=== PATIENT | female | born 1955 | race Caucasian/White ===

== ENCOUNTER 2018-10-07 18:46 | Observation (INO) | payer OTHER ==
[2018-10-07 21:57] LABS: Absolute Lymphocytes (CBC) 1.6 K/uL (0.7-4.9); Absolute Monocytes 1.2 K/uL (0.1-1.3); Absolute Neutrophil 13.4 K/uL (1.8-8.0); Basophils % 0.3 % (0-1.3); Eosinophils % 0.1 % (0-4.4); Hematocrit 41.7 % (36.0-45.0); Lymphocytes % 9.6 % (15.3-44.8); MPV 9.8 fL (7.6-11.3); Monocytes % 7.3 % (3.3-12.3); RBC Red Blood Cell Count 4.42 M/uL (3.86-4.86)
[2018-10-07 22:03] LABS: Potassium 3.8 mmol/L (3.5-5.1)
[2018-10-07] MEDS ORDERED: NA CHLORIDE 0.9% 1,000 ML ONE (22:06)
[2018-10-07 23:05] LABS: Blood Morphology Comment NOT SEEN (NOT SEEN); Platelet Estimate ADEQ; Urine White Blood Cell Casts OK
--- NOTE | 2018-10-07 23:28 | EDPHYS ---
Physician Documentation [facility] Name: Emily Shaw Age: 63 yrs Sex: Female : 1955 Arrival Date: 10/07/2018 Time: 18:47 Bed 20 Private MD: ED Physician Raimundo Herrera HPI: 10/07 21:42 This 63 yrs old Female presents to ER via Wheelchair with complaints of rn Headache, sore throat, sinus pain, neck swelling. 21:42 The patient complains of pain to the forehead. The patient describes the headache as rn aching. 21:42 Onset: The symptoms/episode began/occurred 4 day(s) ago. Associated signs and symptoms: rn Pertinent positives: fever, sinus congestion, weakness, Pertinent negatives: altered mental status, neck stiffness, rash, vision loss. Severity of symptoms: At its worst the pain was moderate, in the emergency department the pain is unchanged. The patient has not experienced similar symptoms in the past. Reports fever, chills, sore throat, sinus issues for 4 days, now left neck is swelling, reports pain with swallowing, no trauma, feels like throat is swelling. + fatigue and malaise.. Historical: - Allergies: 19:48 Atropine; jd3 19:48 Benadryl; jd3 19:48 Scopolamine HBr; jd3 19:48 steroids; jd3 19:48 Sulfa (Sulfonamide Antibiotics); jd3 19:48 Ibuprofen; jd3 - Home Meds: 21:51 aspirin 81 mg Oral TbEC 1 tab once daily [Active]; atorvastatin 20 mg Oral tab 1 tab tl2 once daily [Active]; CoQ-10 Oral [Active]; - PMHx: 19:48 CVA; Hyperlipidemia; High Cholesterol; dry eyes; jd3 - PSHx: 19:48 Sinus sx; Cyst removed from coccyx; Tonsillectomy; Tubal ligation; jd3 - Immunization history:: Adult Immunizations unknown. - Social history:: Smoking status: Patient/guardian denies using tobacco, the patient reports quitting approximately 5 years ago. - Ebola Screening: : Patient negative for fever greater than or equal to 101.5 degrees Fahrenheit, and additional compatible Ebola Virus Disease symptoms. ROS: 21:43 Constitutional: + fever Eyes: Negative for injury, pain, redness, and discharge, ENT: + rn sinus congestion and pain Neck: + left neck pain Cardiovascular: Negative for chest pain, palpitations, and edema, Respiratory: Negative for cough, wheezing, and pleuritic chest pain, Abdomen/GI: Negative for abdominal pain, nausea, vomiting, diarrhea, and constipation, MS/Extremity: Negative for injury and deformity, Skin: Negative for injury, rash, and discoloration, Neuro: + headache and generalized weakness Exam: 21:43 Constitutional: This is a well developed, well nourished patient who is awake, alert, rn and in no acute distress. Head/Face: Normocephalic, atraumatic. Eyes: Pupils equal round and reactive to light, extra-ocular motions intact. Lids and lashes normal. Conjunctiva and sclera are non-icteric and not injected. Cornea within normal limits. Periorbital areas with no swelling, redness, or edema. ENT: + mild pharyngeal erythema, no stridor, no oral lesions Neck: + left neck swelling and tenderness along SCM with tender cervical LAD Skin: Warm, dry, no cellulitis MS/ Extremity: Pulses equal, no cyanosis. Neurovascular intact. Full, normal range of motion. Equal circumference. Neuro: Awake and alert, GCS 15, oriented to person, place, time, and situation. Cranial nerves II-XII grossly intact. Motor strength 5/5 in all extremities. Sensory grossly intact. Cerebellar exam normal. Vital Signs: 19:48 BP 108 / 58; Pulse 76; Resp 19 S; Temp 99.8(O); Pulse Ox 98% on R/A; Weight 95.25 kg jd3 (R); Height 5 ft. 2 in. (157.48 cm) (R); Pain 10/10; 21:08 BP 131 / 64; Pulse 84; Resp 17; Temp 99.5(O); Pulse Ox 95% on R/A; mt 22:15 BP 131 / 45; Pulse 66; Resp 18; Pulse Ox 98% on R/A; tl2 10/08 00:27 BP 123 / 58; Pulse 67; Resp 18; Pulse Ox 95% on R/A; tl2 02:19 BP 124 / 55; Pulse 67; Resp 18; Pulse Ox 98% on R/A; tl2 10/07 19:48 Body Mass Index 38.41 (95.25 kg, 157.48 cm) jd3 [place] Coma Score: 10/07 23:25 Eye Response: spontaneous(4). Verbal Response: oriented(5). Motor Response: obeys rn commands(6). Total: 15. MDM: 21:16 Patient medically screened. rn 23:25 Differential diagnosis: neoplasm, sinus headache, deep space neck infection, rn lymphadenitis. Data reviewed: vital signs, nurses notes, lab test result(s), radiologic studies, CT scan, and as a result, I will admit patient. Counseling: I had a detailed discussion with the patient and/or guardian regarding: the historical points, exam findings, and any diagnostic results supporting the discharge/admit diagnosis, lab results, radiology results, the need for further work-up and treatment in the hospital. Admission orders: after a detailed discussion of the patient's condition and case, the admit orders are written by me. ED course: Pt with asymmetric swelling of glottis region with lymphadenopathy, will admit with IV abx and ENT consult. . 10/07 21:31 Order name: CBC with Diff; Complete Time: 23:08 rn 10/07 21:31 Order name: Basic Metabolic Panel; Complete Time: 22:49 rn 10/07 21:31 Order name: Flu; Complete Time: 22:49 rn 10/07 21:31 Order name: Strep; Complete Time: 22:49 rn 10/07 21:43 Order name: [place] Screen Profile; Complete Time: 22:49 rn 10/07 22:00 Order name: CBC Smear Scan; Complete Time: 23:08 EDMS 10/07 21:31 Order name: CT Head Brain wo Cont rn 10/07 21:31 Order name: CT Soft Tissue Neck W/contr rn 10/07 21:31 Order name: IV Start; Complete Time: 21:49 rn 10/07 22:19 Order name: Throat Culture EDMS Administered Medications: 22:00 Drug: NS 0.9% 1000 ml Route: IV; Rate: 1000 ml; Site: left antecubital; tl2 23:30 Follow up: IV Status: Completed infusion; IV Intake: 1000ml tl2 23:51 Drug: Zosyn 3.375 grams Route: IVPB; Infused Over: 60 mins; Site: left antecubital; tl2 10/08 01:00 Follow up: IV Status: Completed infusion; IV Intake: 100ml tl2 Disposition: 10/07/18 23:27 Hospitalization ordered by Vince Alvarez for Inpatient Admission. Preliminary diagnosis are Acute lymphadenitis of face, head and neck, Odynophagia. - Bed requested for Telemetry/MedSurg (Inpatient). - Status is Inpatient Admission. tl2 - Condition is Stable. - Problem is new. - Symptoms have improved. UTI on Admission? No Signatures: Dispatcher [employer] EDMS Raimundo Herrera MD MD rn Garcia, Cindy, RN RN Rosario Ramey RN RN tl2 Tobi Salas RN RN jd3 Corrections: (The following items were deleted from the chart) 01:33 10/07 23:27 Hospitalization Ordered by Vince Alvarez MD for Inpatient Admission. cg Preliminary diagnosis is Acute lymphadenitis of face, head and neck; Odynophagia. Bed requested for Telemetry/MedSurg (Inpatient). Status is Inpatient Admission. Condition is Stable. Problem is new. Symptoms have improved. UTI on Admission? No. rn 10/08 02:25 01:33 10/07/2018 23:27 Hospitalization Ordered by Vince Alvarez MD for Inpatient tl2 Admission. Preliminary diagnosis is Acute lymphadenitis of face, head and neck; Odynophagia. Bed requested for Telemetry/MedSurg (Inpatient). Status is Inpatient Admission. Condition is Stable. Problem is new. Symptoms have improved. UTI on Admission? No. cg
--- NOTE | 2018-10-07 23:28 | ER ---
Nurse's Notes [facility] Name: Emily Shaw Age: 63 yrs Sex: Female : 1955 Arrival Date: 10/07/2018 Time: 18:47 Bed 20 Private MD: Diagnosis: Acute lymphadenitis of face, head and neck;Odynophagia Presentation: 10/07 19:44 Presenting complaint: Patient states: "I have a headache and it hurts to swallow. this jd3 has been going on since Thursday. I have been nauseous and this pain is getting to be unbelievable. and my throat pain is causing me to having shortness of breath.". Transition of care: patient was not received from another setting of care. Onset of symptoms was October 02, 2018. Risk Assessment: Do you want to hurt yourself or someone else? Patient reports no desire to harm self or others. Initial Sepsis Screen: Does the patient meet any 2 criteria? No. Patient's initial sepsis screen is negative. Does the patient have a suspected source of infection? No. Patient's initial sepsis screen is negative. Care prior to arrival: None. 19:44 Method Of Arrival: Wheelchair jd3 19:44 Acuity: REN 3 jd3 Triage Assessment: 21:53 Headache History: Denies prior headaches. tl2 Historical: - Allergies: 19:48 Atropine; jd3 19:48 Benadryl; jd3 19:48 Scopolamine HBr; jd3 19:48 steroids; jd3 19:48 Sulfa (Sulfonamide Antibiotics); jd3 19:48 Ibuprofen; jd3 - Home Meds: 21:51 aspirin 81 mg Oral TbEC 1 tab once daily [Active]; atorvastatin 20 mg Oral tab 1 tab tl2 once daily [Active]; CoQ-10 Oral [Active]; - PMHx: 19:48 CVA; Hyperlipidemia; High Cholesterol; dry eyes; jd3 - PSHx: 19:48 Sinus sx; Cyst removed from coccyx; Tonsillectomy; Tubal ligation; jd3 - Immunization history:: Adult Immunizations unknown. - Social history:: Smoking status: Patient/guardian denies using tobacco, the patient reports quitting approximately 5 years ago. - Ebola Screening: : Patient negative for fever greater than or equal to 101.5 degrees Fahrenheit, and additional compatible Ebola Virus Disease symptoms. Screenin:50 Abuse screen: Denies threats or abuse. Nutritional screening: No deficits noted. tl2 Tuberculosis screening: No symptoms or risk factors identified. Fall Risk None identified. Assessment: 21:35 General: Appears in no apparent distress. uncomfortable, Behavior is calm, cooperative, tl2 appropriate for age, drowsy. Pain: Complains of pain in forehead. Neuro: Level of Consciousness is awake, alert, obeys commands, Oriented to person, place, time, situation. Cardiovascular: Denies chest pain, Patient's skin is warm and dry. Respiratory: Airway is patent Respiratory effort is even, unlabored, Respiratory pattern is regular, symmetrical, Parent/caregiver reports the patient having cough that is. GI: Reports intolerance of fluids, intolerance of food, nausea. : No signs and/or symptoms were reported regarding the genitourinary system. EENT: Throat is reddened. Derm: Skin is pink, warm \\T\\ dry. 22:16 Reassessment: pt out to CT. tl2 23:30 Reassessment: Patient appears in no apparent distress at this time. Patient and/or tl2 family updated on plan of care and expected duration. Pain level reassessed. Patient is alert, oriented x 3, equal unlabored respirations, skin warm/dry/pink. 10/08 00:26 Reassessment: Patient appears in no apparent distress at this time. pt appears to be tl2 sleeping, RR even and unlabored. 02:19 Reassessment: Patient appears in no apparent distress at this time. Patient and/or tl2 family updated on plan of care and expected duration. Pain level reassessed. Patient is alert, oriented x 3, equal unlabored respirations, skin warm/dry/pink. pt stable and ready for transport to floor. Vital Signs: 10/07 19:48 BP 108 / 58; Pulse 76; Resp 19 S; Temp 99.8(O); Pulse Ox 98% on R/A; Weight 95.25 kg jd3 (R); Height 5 ft. 2 in. (157.48 cm) (R); Pain 10/10; 21:08 BP 131 / 64; Pulse 84; Resp 17; Temp 99.5(O); Pulse Ox 95% on R/A; mt 22:15 BP 131 / 45; Pulse 66; Resp 18; Pulse Ox 98% on R/A; tl2 10/08 00:27 BP 123 / 58; Pulse 67; Resp 18; Pulse Ox 95% on R/A; tl2 02:19 BP 124 / 55; Pulse 67; Resp 18; Pulse Ox 98% on R/A; tl2 10/07 19:48 Body Mass Index 38.41 (95.25 kg, 157.48 cm) jd3 [place] Coma Score: 10/07 23:25 Eye Response: spontaneous(4). Verbal Response: oriented(5). Motor Response: obeys rn commands(6). Total: 15. ED Course: 18:47 Patient arrived in ED. rg4 19:46 Triage completed. jd3 19:49 Arm band placed on Patient notified of wait time. jd3 21:08 Rosario Ramey, SYED is Primary Nurse. tl2 21:16 Raimnudo Herrera MD is Attending Physician. rn 21:45 Inserted saline lock: 22 gauge in left antecubital area, using aseptic technique. Blood tl2 collected. 21:50 Radiology exam delayed due to lab results not completed at this time. (BUN/Creatinine). vm2 21:50 Patient has correct armband on for positive identification. Placed in gown. Bed in low tl2 position. Call light in reach. Side rails up X 1. Adult w/ patient. 21:50 [place] Screen Profile Sent. tl2 21:50 Strep Sent. tl2 21:50 Flu Sent. tl2 21:50 Basic Metabolic Panel Sent. tl2 21:50 CBC with Diff Sent. tl2 22:[address] nj 22:36 CT Head Brain wo Cont In Process Unspecified. EDMS 22:37 CT Soft Tissue Neck W/contr In Process Unspecified. EDMS 23:26 Vince Alvarez MD is Hospitalizing Provider. rn 10/08 02:19 No provider procedures requiring assistance completed. Patient admitted, IV remains in tl2 place. Administered Medications: 10/07 22:00 Drug: NS 0.9% 1000 ml Route: IV; Rate: 1000 ml; Site: left antecubital; tl2 23:30 Follow up: IV Status: Completed infusion; IV Intake: 1000ml tl2 23:51 Drug: Zosyn 3.375 grams Route: IVPB; Infused Over: 60 mins; Site: left antecubital; tl2 10/08 01:00 Follow up: IV Status: Completed infusion; IV Intake: 100ml tl2 Intake: 10/07 23:30 IV: 1000ml; Total: 1000ml. tl2 10/08 01:00 IV: 100ml; Total: 1100ml. tl2 Outcome: 10/07 23:27 Decision to Hospitalize by Provider. syed 10/08 02:19 Admitted to Med/surg accompanied by tech, family with patient, via wheelchair, room tl2 223, with chart, Report called to SYED Rodriguez Condition: stable Discharge instructions given to patient, family, Instructed on the need for admit. 02:25 Patient left the ED. tl2 Signatures: Dispatcher [employer] EDMS Raimundo Herrera MD MD rn Knox, Taylor, RN RN tl2 Simone, Arleen 4 Lars, Katharine Marroquin 2 Kimber Villafana mt, Jonathon, RN RN jd3 Corrections: (The following items were deleted from the chart) 10/07 19:50 19:44 Presenting complaint: Patient states: "I have a headache and it hurts to swallow. jd3 this has been going on since Thursday. I have been nauseous and this pain is getting to be unbelievable." jd3
[2018-10-07] MEDS ORDERED: PIPER/TAZO/NS 3.375gm 3.375 GM/100 ML BAG ONE (23:52)
[2018-10-08] MEDS ORDERED: CEFTRIAXONE/SWI 1gm 1 GM/10 ML SYR ONE (00:53)
[2018-10-08] MEDS ORDERED: ACETAMINOPHEN 500 MG TAB PO PRN (03:04)
[2018-10-08] MEDS: NA CHLORIDE 0.9% 1,000 ML IV SCH ×2 (04:36→11:07)
--- NOTE | 2018-10-08 06:04 | P.HP ---
Certification for Inpatient Patient admitted to: Observation With expected LOS: <2 Midnights Practitioner: I am a practitioner with admitting privileges, knowledge of patient current condition, hospital course, and medical plan of care. Services: Services provided to patient in accordance with Admission requirements found in Title 42 Section 412.3 of the Code of Federal Regulations Patient History Date of Service: 10/08/18 Reason for admission: odynophagia, fever History of Present Illness: Ms Shaw is a 63 years old woman with history of dyslipidemia, CVA, who started about 4 days ago with sore throat and neck pain to swallowing. She has had subjective fever, with mild SOB, cough, nausea but no vomiting. She denied chest pain. At arrival, her temp was 99.8 F, lab work shows leukocytosis 16.2K, CT scan of soft tissue neck, remarkable for abnormal appearance of the [place] , concerning for infection vs malignancy. CT head shows moderate paranasal sinusitis. Influenza screening is negative. Allergies atropine Allergy (Verified 10/08/18 02:29) Unknown diphenhydramine HCl [From Benadryl] Allergy (Verified 10/08/18 02:29) UNK Penicillins Allergy (Verified 10/08/18 02:29) UNK ibuprofen Adverse Reaction (Verified 10/08/18 02:30) Nausea/Vomiting Scopolamine HBr Allergy (Uncoded 07/24/17 14:03) Unknown Sulfa (Sulfonamide Antib Allergy (Uncoded 07/24/17 14:03) Unknown - Past Medical/Surgical History Has patient received pneumonia vaccine in the past: Yes Diabetic: No -: sinus surg -: tubal ligation -: tonsillectomy - Family History Father -: Heart disease - Social History Smoking Status: Former smoker CD- Drugs: No Caffeine use: Yes Place of Residence: Home Review of Systems 10-point ROS is otherwise unremarkable Physical Examination - Vital Signs Temperature: 99.5 F Blood Pressure: 124/55 Pulse: 67 Respirations: 18 - Physical Exam General: Alert, In no apparent distress HEENT: Atraumatic, PERRLA, Mucous membr. moist/pink, EOMI, Sclerae nonicteric Neck: Supple, 2+ carotid pulse no bruit, No LAD, Without JVD or thyroid abnormality Respiratory: Clear to auscultation bilaterally, Normal air movement Cardiovascular: Regular rate/rhythm, Normal S1 S2 Gastrointestinal: Normal bowel sounds, No tenderness Musculoskeletal: No tenderness Integumentary: No rashes Neurological: Normal gait, Normal speech, Normal strength at 5/5 x4 extr, Normal tone, Normal affect Lymphatics: No axilla or inguinal lymphadenopathy - Studies Laboratory Data (last 24 hrs) 10/07/18 21:40: Sodium 137, Potassium 3.8, BUN 14, Creatinine 1.08, Glucose 132 H 10/07/18 21:40: WBC 16.2 H, Hgb 13.8, Hct 41.7, Plt Count 205 Microbiology Data (last 24 hrs): 10/07/18 21:40 Nasopharnyx Influenza Type A Antigen Screen - Final 10/07/18 21:40 Nasopharnyx Influenza Type B Antigen Screen - Final 10/07/18 21:40 Throat Group A Streptococcus Rapid Screen - Final Assessment and Plan - Problems (Diagnosis) (1) Odynophagia Current Visit: Yes Status: Acute (2) Sinusitis Current Visit: Yes Status: Acute Qualifiers: Sinusitis location: sphenoidal Chronicity: acute Recurrence: not specified as recurrent Qualified Code(s): J01.30 - Acute sphenoidal sinusitis , unspecified - Plan The patient will be admitted under observation, start empiric antibiotics, will consult Dr Hernandez, for evaluation and recommendations. - Advance Directives Does patient have a Living Will: No Does patient have a Durable POA for Healthcare: No - Code Status/Comfort Care Code Status Assessed: Yes Code Status: Full Code
[2018-10-08] MEDS ORDERED: ONDANSETRON 4 MG/2 ML VIAL IV ONE (06:17)
[2018-10-08 06:34] LABS: Absolute Lymphocytes (CBC) 1.4 K/uL (0.7-4.9); Absolute Monocytes 1.1 K/uL (0.1-1.3); Absolute Neutrophil 10.2 K/uL (1.8-8.0); Basophils % 0.3 % (0-1.3); Eosinophils % 0.2 % (0-4.4); Hematocrit 37.5 % (36.0-45.0); Lymphocytes % 10.9 % (15.3-44.8); MPV 9.7 fL (7.6-11.3); Monocytes % 8.5 % (3.3-12.3); RBC Red Blood Cell Count 4.05 M/uL (3.86-4.86)
[2018-10-08 06:52] LABS: Potassium 3.8 mmol/L (3.5-5.1)
[2018-10-08] MEDS: ACETAMINOPHEN 500 MG TAB PO PRN ×2 (07:28→15:29)
[2018-10-08] MEDS ORDERED: AZITHROMYCIN IV 500 MG in NA CHLORIDE 0.9% 250 ML IVPB SCH (09:00)
[2018-10-08] MEDS ORDERED: CEFTRIAXONE 1 GM/NS 50 ML 1 GM/50 ML BAG IV SCH (09:00)
[2018-10-08] MEDS ORDERED: CEFTRIAXONE/SWI 1gm 1 GM/10 ML SYR IV SCH (09:00)
[2018-10-08] MEDS ORDERED: PSEUDOEPHEDRINE 30 MG TAB PO PRN (10:37)
--- NOTE | 2018-10-08 11:27 | RAD REPORT ---
EXAM DESCRIPTION: CT - Soft Tissue Neck W/Contr - 10/07/2018 10:57 pm CLINICAL HISTORY: The patient is 63 years old and is Female; left neck pain/swelling TECHNIQUE: Axial computed tomography images of the neck with intravenous contrast. Sagittal and co froilan reformatted images were created and reviewed. This CT exam was performed using one or more of the following dose reduction techniques: automated exposure control, adjustment of the mA and/or k V according to patient size, and/or use of iterative reconstruction technique. COMPARISON: CT head without contrast of the same day. FINDINGS: BRAIN: Visualized intracranial compartment demonstrate no gross abnormality. OROPHARYNX: Unremarkable. No significant tonsillar enlargement. No peritonsillar abscess. HYPOPHARYNX: See below. LARYNX: Asymmetric effacement of the left vallecula with thickening of the left epiglottis and radha epiglottic fold. There is fullness of the left piriform sinus. TRACHEA: Unremarkable. RETROPHARYNGEAL SPACE: Unremarkable. SUBMANDIBULAR/PAROTID GLANDS: Unremarkable. Glands are normal in size. THYROID: Visualized thyroid is unremarkable. BONES/JOINTS: Multilevel degenerative changes, worse at C5-6. No acute fracture. SOFT TISSUES: Unremarkable. VASCULATURE: No acute findings. LYMPH NODES: Multilevel left cervical lymphadenopathy. Largest level 2A lymph node measures 1.5 cm . Largest level 2B lymph node measures 1.2 cm. Multiple mildly enlarged left level three and four lym ph nodes. No pathologically enlarged right cervical lymph nodes. SINUSES: Nodular mucosal thickening in the maxillary sinus with chronic osteitis extending to the ethmoid. LUNG APICES: Apical centrilobular emphysematous changes. IMPRESSION: 1. Asymmetric effacement of the left vallecula with thickening of the left epiglottis/ aryepiglottic fold and fullness of the piriform sinus. Finding could represent neoplastic or infectio us mucosal lesion. Direct visualization is recommended. 2. Multistation left cervical lymphadenopathy as detailed above. 3. Apical chronic lung changes. 4. Chronic appearing paranasal sinus disease. 5. Moderate C6-7 degenerative changes. Electronically signed by: Negro Capellan DO 10/07/2018 10:51 PM CDT Due to temporary technical issues with the PACS/Fluency reporting system, reports are being signed by the in house radiologist as a courtesy to ensure prompt reporting. The interpreting radiologist is f ully responsible for the content of the report.
--- NOTE | 2018-10-08 11:28 | RAD REPORT ---
EXAM DESCRIPTION: CT - Head Brain Wo Cont - 10/07/2018 10:55 pm CLINICAL HISTORY: 63 years Female, HEADACHE TECHNIQUE: 5 mm axial images were obtained along with 3 mm reformatted coronal and sagittal images. This exam was performed according to our departmental dose-optimization program, which includes autom ated exposure control, adjustment of the mA and/or kV according to patient size and/or use of iterati ve reconstruction technique. COMPARISON: None. FINDINGS: No acute abnormal extracerebral fluid collections are demonstrated. The cortical sulci, ventricles, and cisterns are within normal limits. There are no areas of altered attenuation identified to suggest acute hemorrhage, infarction, or mass lesion. The visualized portions of the paranasal sinuses and mastoid air cells are moderately severe mucosal thickening in the right frontal, bilateral ethmoid, and maxillary sinuses. IMPRESSION: 1. No acute intracranial abnormalities. 2. Moderately severe paranasal sinusitis. Electronically signed by: Erwin Braxton MD 10/07/2018 10:44 PM CDT Due to temporary technical issues with the PACS/Fluency reporting system, reports are being signed by the in house radiologist as a courtesy to ensure prompt reporting. The interpreting radiologist is f ully responsible for the content of the report.
--- NOTE | 2018-10-08 17:53 | P.CNS ---
Date of Consult: 10/08/18 CC: neck swelling HPI: 63 yo with known hx CRS and FESS at [facility] in 2015; presents with about 1 week sore throat and L neck pain and swelling. Treated with outpatient Amoxil from [facility] starting Thursday but having very severe BOTELLO and came to ER on evening. Tried saline irrigations without improvement. Possible discussion about fungal issues in the sinuses. No photo/phono phobia. No prior neuro evaluation. PH/PS Hx: cholesterol, CVA (15 years ago), CRS/FESS as above ROS: reviewed from ER, no changes FHx: noncontributory SH: Hx tobacco, quit on and off several times, last tobacco about 5-6 years ago. NAD. Alert, no stridor. Normal voice. Generally appears comfortable. PERRL, EOM. Nares patent - no discolored discharge. Pinna unremarkable, no otoscope is available at this time. Lips normal. Tongue dry but without ulceration/ lesions. FOM flat, non tender. Tonsils absent and well healed. Posterior OP wall pink/dry but not greatly irritated. L neck with tender palpable nodes deep to SCM - difficult to appreciate size clinically - about 2-3 cm area of swelling. R neck non-tender and no palpable LAD. CT head and neck with contrast shows B ethmoid, max opacifcation and surgical changes. Frontal not well visualized on CT neck. Sphenoid not signficantly involved. No abscess. L LAD 12-15mm without abscess. No clear dental cause. Radiologist noted asymmetry of vallecula and recommended direct visualization. Mildly elevated WBC on admission, improving. Assessment/Plan: Cervical Lymphadenitis - In this very acute setting, with recent onset and degree of pain/tenderness, malignancy is low likelihood. Reactive LAD will typically resolve in 4-6 weeks and clinical reassessment with/without imaging pending clinical status. Abnormal radiographic exam - plan for outpatient flexible laryngoscopy in ENT clinic in 4-6 weeks for direct visualization of BOT/vallecula Chronic maxillary and ethmoid sinusitis - no obvious pus is present for culture at this time. Recommend empiric antibiotics with typically options of Augmentin or Levaquin, alternatives include doxycycline or Bactrim. Recommend 21-28 days of treatment with post-treatment CT sinus with 1 mm axial slices and coronal/ sagital reconstructions. Will review findings and discuss treatment options based on post-treatment findings including endoscopic exam. Alternatively, patient can [facility] if she desires. Severe BOTELLO - based on history and CT findings it is unclear if her BOTELLO is sinogenic or may have other contributing causes such as migraine. She may benefit from neurologist evaluation, sigifredo if her post-treatment CT next month is much improved.
[2018-10-08] MEDS ORDERED: ATORVASTATIN 40 MG TAB PO SCH (21:00)
[2018-10-08] MEDS ORDERED: ERYTHROMYCIN 1 APPL/1 GM TUBE OP SCH (21:00)
--- NOTE | 2018-10-09 01:53 | DS ---
Date of Discharge: 10/08/2018 Installation And Service Technician: Dr. Hernandez, ENT. Procedures: None. Discharge Diagnoses: 1.Acute sinusitis. 2.Headache. 3.Obesity, BMI 38.4. Hospital Course: The patient is a 63-year-old female, comes in with sore throat, neck pain. The pat ient was found to have a sinusitis on CT scan of the head with moderately severe findings of soft tis aba of the neck. It was done due to neck pain and swelling, found to have asymmetric effacement of t left vallecula with thickening of the left epiglottis and aryepiglottic fold and fullness of the p iriform sinus, could represent neoplastic or infectious mucosal lesion, multi-station left cervical l ymphadenopathy, apical chronic lung changes, chronic-appearing paranasal sinus disease, moderate C6-7 degenerative changes. The patient was seen by Dr. Hernandez. She was started on IV antibiotics. It should be noted that she has multiple allergies including penicillin, sulfa. She also lists doxycycl ine as an allergy. She has adverse reactions to Levaquin. The patient did well over the course of [facility] hospital stay. Her white blood cell count decreased. She was afebrile. Her headaches also impro armand, which is likely secondary to her sinusitis. She was evaluated by Dr. Hernandez, who recommended o utpatient scope. The vallecular abnormality was thought to be infectious in nature rather than malig nant and she will need a repeat ultrasound or CT imaging in 1-3 months. The patient was then recomme nded to have follow up with ENT outpatient for outpatient flexible laryngoscopy and direct visualizat ion of the vallecula and be discharged on oral antibiotics for 21-28 days. Unfortunately, the first four antibiotic choices are allergies for the patient including Augmentin, Levaquin, doxycycline, and Bactrim. The patient did well with cephalosporins. The patient was then discharged home in a stabl e condition. Activity: As tolerated. Medications: As per medication reconciliation list. Followup: Follow up with primary care physician in 2-3 days. Follow up with ENT, Dr. Hernandez in 2 w eeks. Return to ER for worsening condition. Diet: Heart healthy. Physical Examination: General: Awake, alert, oriented, no acute distress. CV: S1, S2. No murmurs. Respiratory: Moving air well bilaterally. No wheezing. Gastrointestinal: Abdomen is soft, nontender, nondistended. Positive bowel sounds. Extremities: No clubbing, cyanosis, edema. Neurologic: Nonfocal. HEENT: The patient has normal oropharynx. No erythema. Neck: Does have some lymphadenopathy on the left with some mild tenderness to palpation. /CATRINA Voice ID: [id number] Report ID: [id number]
[2018-10-09] MEDS ORDERED: GUAIFENESIN 600 MG SA TAB PO SCH (09:00)
== END 2018-10-08 18:55 | disposition home or self-care (01) ==
LOC: ER 18:46 → ERHOLD 10-08 01:32 → 2ND 10-08 01:49
PROVIDERS: ADMIT Internal Medicine; ATTEND Internal Medicine
DX: J01.30 Acute sphenoidal sinusitis, unspecified (principal); R51 Headache; E66.9 Obesity, unspecified; Z68.38 Body mass index [BMI] 38.0-38.9, adult; Z88.0 Allergy status to penicillin; Z88.2 Allergy status to sulfonamides; I88.8 Other nonspecific lymphadenitis; Z86.73 Personal history of transient ischemic attack (TIA), and cerebral infarction without residual deficits
CPT/HCPCS: 96365; 96361; 87070; 85025 ×2; 80048 ×2; 36415; 86308; 87081; 87804 ×2; 70450; 70491; 99285; Q9967; J0456; J2543; J0696 ×2; J7030 ×2; G0378 ×2

== ENCOUNTER → 2023-09-27 | Emergency (ER) | payer OTHER ==
--- OUTSIDE RECORDS SUMMARY | 2023-09-27 00:32 | XMS REPORT | Continuity of Care Document ---
Author Name Unknown Address [address] [facility] [address] [place] [address] [facility] Address [address] [facility]. [address] [place] [address] Care Team Providers Care Capacity Planner Name Role Phone OBI-RAKESH, MARQUIS Primary Care Physician Vinay sexton OBI-RAKESH, MARQUIS Attending Clinician Unavailab román OBI-RAKESH MARQUIS Attending Clinician Unavailab román Barrett ADVERTISING INSERTER, Robert Attending Clinician [phone] Marquita Perkins MD Attending Clinician [phone] Doctor Unassigned, [place] Attending Clinician U ROBERT Gardner Attending Clinician Unavailab VERA Helton Attending Clinician Unavailable VERA GIRON Attending Clinician Unavailable Sebastián MONTGOMERY Attending Clinician Unavailable Sebastián Keita Attending Clinician [phone] PEEWEE MUÑIZ Attending Clinician Unavailable Peewee Muñiz MD Attending Clinician [phone] MARQUITA PERKINS Attending Clinician Unavailable Nurse, Adc Fam Attending Clinician Unavailable Unknown, Attending Attending Clinician Unavailab ELOY Hong Attending Clinician Unavailab le 2, Adc Lab Attending Clinician Unavailable Lela Rodgers MD Attending Clinician [phone] JOHN GARCIA Attending Clinician Unavailaaron Choudhary RN, Sarah Haines Attending Clinician Unavailab román Jamison MD, Silvino Kiran Attending Clinician [phone] Only, Ang Db Test Attending Clinician Unavailabl e Ebrahim SAND MILL OPERATOR CORE SAND, Rania Attending Clinician [phone] EBSALOME GRAVES Attending Clinician Unavailable THANH HENDRICKSON Attending Clinician Unavail able Nurse, Adc Pob Immunization Attending Clinician Unavailable Thanh Hendrickson DO Attending Clinician Therapy, Adc Covid Infusion Attending Clinician Unavailable Ora Brenner MD Attending Clinician [phone] ORA BRENNER Attending Clinician Unavailable Ranjith SAND MILL OPERATOR CORE SAND, John Attending Clinician [phone] IDALMIS MAHAJAN Attending Clinician Unavailable Delia Young MD Attending Clinician [phone] Adrian Moreira DO Attending Clinician [phone] Sebastián MONTGOMERY Admitting Clinician Unavailable PEEWEE MUÑIZ Admitting Clinician Unavailable Payers Payer Name Policy Type Policy Number Effective Date Expirati on Date Source MEDICARE PART A \\T\\ [id number] 2020 00:00:00 COMMERCIAL NON-CONTRACT GENERIC [id number] 2020 00:00:00 2022 00:00:00 Problems Condition Name Condition Details Condition Category Status Onset Date Resolution Date Last Treatment Date Treating Clinician Comments Source Costochond ritis, acute Costochond ritis, acute Disease Active 02-04 00:00: 00 [facility] Hoarseness of voice Hoarseness of voice Disease Active 02-04 00:00: 00 [facility] Post viral syndrome Post viral syndrome Disease Active 02-04 00:00: 00 [facility] Sexual relationsh ip disorder Sexual relationsh ip disorder Disease Active 02-04 00:00: 00 [facility] Other urinary incontinen ce Other urinary incontinen ce Disease Active 02-04 00:00: 00 [facility] Insomnia due to medical condition Insomnia due to medical condition Disease Active 02-04 00:00: 00 [facility] Bronchitis Bronchitis Disease Active 02-04 00:00: 00 [facility] Chills Chills Disease Active 2021-07 2-28 00:00: 00 [facility] Viral upper respirator y tract infection Viral upper respirator y tract infection Disease Active 2021-07 2-28 00:00: 00 [facility] Post-nasal drainage Post-nasal drainage Disease Active 2020-07 0-19 00:00: 00 [facility] Chronic maxillary sinusitis Chronic maxillary sinusitis Disease Active 9-29 00:00: 00 [facility] Vision changes Vision changes Disease Active 8-24 00:00: 00 [facility] Floater, vitreous, bilateral Floater, vitreous, bilateral Disease Active 8-24 00:00: 00 [facility] Chronic allergic rhinitis Chronic allergic rhinitis Disease Active 8-24 00:00: 00 [facility] Nose septum deviation Nose septum deviation Disease Active 8-24 00:00: 00 [facility] COVID-19 virus infection COVID-19 virus infection Disease Active 8-13 00:00: 00 [facility] Exposure to chemical irritant Exposure to chemical irritant Disease Active 8-11 00:00: 00 [facility] Subacute maxillary sinusitis Subacute maxillary sinusitis Disease Active 8-11 00:00: 00 [facility] Pharyngiti s due to other organism Pharyngiti s due to other organism Disease Active 8-11 00:00: 00 [facility] Fatigue, unspecifie d type Fatigue, unspecifie d type Disease Active 518 00:00: 00 [facility] Hypertensi ve kidney disease with stage 3a chronic kidney disease Hypertensi ve kidney disease with stage 3a chronic kidney disease Disease Active 18 00:00: 00 [facility] Senile osteoporos is Senile osteoporos is Disease Active 518 00:00: 00 [facility] Class 3 severe obesity due to excess calories with serious comorbidit y and body mass index (BMI) of 40.0 to 44.9 in adult Class 3 severe obesity due to excess calories with serious comorbidit y and body mass index (BMI) of 40.0 to 44.9 in adult Disease Active 07-27 00:00: 00 [facility] Essential hypertensi on Essential hypertensi on Disease Active 07-27 00:00: 00 [facility] Severe sleep apnea Severe sleep apnea Disease Active 07-27 00:00: 00 [facility] Mixed hyperlipid emia Mixed hyperlipid emia Disease Active 07-27 00:00: 00 [facility] High priority for COVID-19 virus vaccinatio n High priority for COVID-19 virus vaccinatio n Disease Active 07-27 00:00: 00 [facility] Encounter for weight management Encounter for weight management Disease Active 07-27 00:00: 00 [facility] Need for hepatitis C screening test Need for hepatitis C screening test Disease Active 07-27 00:00: 00 [facility] Arthritis, multiple joint involvemen t Arthritis, multiple joint involvemen t Disease Active 07-27 00:00: 00 [facility] Eczema, unspecifie d type Eczema, unspecifie d type Disease Active 07-27 00:00: 00 [facility] Need for 23-polyval ent pneumococc al polysaccha ride vaccine Need for 23-polyval ent pneumococc al polysaccha ride vaccine Disease Active 07-27 00:00: 00 [facility] Morbid obesity with body mass index (BMI) of 40.0 or higher Morbid obesity with body mass index (BMI) of 40.0 or higher Disease Active 07-27 00:00: 00 [facility] Anxiety, generalize d Anxiety, generalize d Disease Active 07-27 00:00: 00 [facility] Allergies, Adverse Reactions, Alerts Allergy Name Allergy Type Status Severity Reaction(s) Onset Date Inactive Date Treating Clinician Comments Source AMOXICIL KLAUDIA-POT CLAVULA (BULK) DRUG Active SOB 02-04 00:00: 00 [facility] PREDNISO NE DRUG INGREDI Active SOB 02-04 00:00: 00 [facility] Amoxicil klaudia-Pot Clavula (Bulk) Propensi ty to adverse reaction s Active Shortness of Breath 02-04 00:00: 00 Difficult y breathing [facility] Predniso ne Propensi ty to adverse reaction s Active Shortness of Breath 02-04 00:00: 00 difficult y [facility] PENICILL INS Drug Class Active Swelling 07-21 00:00: 00 [facility] Penicill ins Drug Allergy Active Swelling 07-21 00:00: 00 Swelling in feet, especiall y Augmentin [facility] Sulfa (Sulfona mide Antibiot ics) Propensi ty to adverse reaction s Active Unknown - See comments 07-27 00:00: 00 [facility] Diphenhy dramine Hcl Propensi ty to adverse reaction s Active Swelling 07-27 00:00: 00 [facility] Doxycycl ine Propensi ty to adverse reaction s Active Unknown - See comments 07-27 00:00: 00 [facility] Naproxen Propensi ty to adverse reaction s Active Unknown - See comments 07-27 00:00: 00 [facility] Scopolam ine Propensi ty to adverse reaction s Active Unknown - See comments 07-27 00:00: 00 [facility] Sulfa (Sulfona mide Antibiot ics) Propensi ty to adverse reaction s Active Unknown - See comments 07-27 00:00: 00 [facility] DIPHENHY DRAMINE HCL DRUG INGREDI Active High Swelling 07-27 00:00: 00 [facility] DOXYCYCL INE DRUG INGREDI Active Unknown-Cmnt 07-27 00:00: 00 [facility] NAPROXEN DRUG INGREDI Active Unknown-Cmnt 07-27 00:00: 00 [facility] SCOPOLAM INE DRUG INGREDI Active Unknown-Cmnt 07-27 00:00: 00 [facility] SULFA (SULFONA MIDE ANTIBIOT ICS) Drug Class Active Unknown-Cmnt 07-27 00:00: 00 [facility] ATROPINE DRUG INGREDI Active Unknown-Cmnt 07-24 00:00: 00 [facility] SCOPOLAM INE HBR DRUG Active Unknown-Cmnt 07-24 00:00: 00 [facility] Atropine Drug Allergy Active Unknown - See comments 07-24 00:00: 00 [facility] Scopolam ine Hbr Drug Allergy Active Unknown - See comments 07-24 00:00: 00 [facility] NO KNOWN ALLERGIE S Drug Class Active [facility] Social History Social Habit Start Date Stop Date Quantity Comments Source Gender identity [facility] Sexual orientation U [facility] Alcohol intake 2023-07-28 00:00:00 2023-07-28 00:00:00 Lifetime non-drinker (finding) [facility] [place] [place] Exposure to SARS-CoV-2 (event) 2022-10-28 00:00:00 2022-11-07 11:41:[address] [facility] [place] [place] History of Social function 2022-05-23 00:00:00 2022-05-23 00:00:[address] [facility] [place] [place] Tobacco use and exposure 2021-02-27 00:00:00 2021-02-27 00:00:00 Smokeless tobacco non-user [facility] [place] [place] Sex Assigned At 1955 00:00:00 1955 00:00:[address] [facility] [place] [place] Smoking Status Start Date Stop Date Source Never smoked tobacco [facility] Medications Ordered Medication Name Filled Medication Name Start Date Stop Date Current Medication? Ordering Clinician Indication Dosage Frequency Signature (SIG) Comments Components Source bromphenira mine-pseudo ephedrine-D M (BROMFED DM) 2-30-10 mg/5 mL syrup 07-28 00:00: 00 Yes [id number] 10mL Take 10 mL by mouth 4 (four) times daily as needed for Congestion /Allergies or Cough. [facility] bromphenira mine-pseudo ephedrine-D M (BROMFED DM) 2-30-10 mg/5 mL syrup 07-28 00:00: 00 Yes [id number] 10mL Take 10 mL by mouth 4 (four) times daily as needed for Congestion /Allergies or Cough. [facility] azithromyci n 250 mg tablet 07-28 00:00: 00 08-03 05:59 :00 Yes [id number] Take 2 tablets by mouth daily for 1 day, THEN 1 tablet daily for 4 days. [facility] azithromyci n 250 mg tablet 07-28 00:00: 00 08-03 05:59 :00 Yes [id number] Take 2 tablets by mouth daily for 1 day, THEN 1 tablet daily for 4 days. [facility] nystatin 100,000 unit/mL suspension 04-06 00:00: 00 Yes [id number] U Take 10 mL by mouth 4 (four) times daily. [facility] benzonatate (TESSALON PERLES) 100 mg capsule 04-06 00:00: 00 Yes [id number] 100mg Take 1 capsule by mouth every 8 (eight) hours as needed for Cough. November 1-2 capsules [facility] bromphenira mine-pseudo ephedrine-D M (BROMFED DM) 2-30-10 mg/5 mL syrup 04-06 00:00: 00 Yes [id number] 5mL Take 5 mL by mouth 4 (four) times daily as needed for Congestion /Allergies , Cold symptoms or Cough. [facility] fluconazole (DIFLUCAN) 200 mg tablet 04-06 00:00: 00 Yes [id number] 200mg Take 1 tablet by mouth in the morning. Take 1 tablet, then repeat next dose in 72 hours if sx. Persist. [facility] nystatin 100,000 unit/mL suspension 04-06 00:00: 00 Yes [id number] U Take 10 mL by mouth 4 (four) times daily. [facility] benzonatate (TESSALON PERLES) 100 mg capsule 04-06 00:00: 00 Yes [id number] 100mg Take 1 capsule by mouth every 8 (eight) hours as needed for Cough. November 1-2 capsules [facility] bromphenira mine-pseudo ephedrine-D M (BROMFED DM) 2-30-10 mg/5 mL syrup 04-06 00:00: 00 Yes [id number] 5mL Take 5 mL by mouth 4 (four) times daily as needed for Congestion /Allergies , Cold symptoms or Cough. [facility] fluconazole (DIFLUCAN) 200 mg tablet 04-06 00:00: 00 Yes [id number] 200mg Take 1 tablet by mouth in the morning. Take 1 tablet, then repeat next dose in 72 hours if sx. Persist. [facility] nystatin 100,000 unit/mL suspension 04-06 00:00: 00 Yes [id number] U Take 10 mL by mouth 4 (four) times daily. [facility] benzonatate (TESSALON PERLES) 100 mg capsule 04-06 00:00: 00 Yes [id number] 100mg Take 1 capsule by mouth every 8 (eight) hours as needed for Cough. November 1-2 capsules [facility] bromphenira mine-pseudo ephedrine-D M (BROMFED DM) 2-30-10 mg/5 mL syrup 04-06 00:00: 00 Yes [id number] 5mL Take 5 mL by mouth 4 (four) times daily as needed for Congestion /Allergies , Cold symptoms or Cough. [facility] fluconazole (DIFLUCAN) 200 mg tablet 04-06 00:00: 00 Yes [id number] 200mg Take 1 tablet by mouth in the morning. Take 1 tablet, then repeat next dose in 72 hours if sx. Persist. [facility] nystatin 100,000 unit/mL suspension 04-06 00:00: 00 Yes [id number] U Take 10 mL by mouth 4 (four) times daily. [facility] benzonatate (TESSALON PERLES) 100 mg capsule 04-06 00:00: 00 Yes [id number] 100mg Take 1 capsule by mouth every 8 (eight) hours as needed for Cough. November 1-2 capsules [facility] bromphenira mine-pseudo ephedrine-D M (BROMFED DM) 2-30-10 mg/5 mL syrup 04-06 00:00: 00 Yes [id number] 5mL Take 5 mL by mouth 4 (four) times daily as needed for Congestion /Allergies , Cold symptoms or Cough. [facility] fluconazole (DIFLUCAN) 200 mg tablet 04-06 00:00: 00 Yes [id number] 200mg Take 1 tablet by mouth in the morning. Take 1 tablet, then repeat next dose in 72 hours if sx. Persist. [facility] nystatin 100,000 unit/mL suspension 04-06 00:00: 00 Yes [id number] U Take 10 mL by mouth 4 (four) times daily. [facility] benzonatate (TESSALON PERLES) 100 mg capsule 04-06 00:00: 00 Yes [id number] 100mg Take 1 capsule by mouth every 8 (eight) hours as needed for Cough. November 1-2 capsules [facility] bromphenira mine-pseudo ephedrine-D M (BROMFED DM) 2-30-10 mg/5 mL syrup 04-06 00:00: 00 Yes [id number] 5mL Take 5 mL by mouth 4 (four) times daily as needed for Congestion /Allergies , Cold symptoms or Cough. [facility] fluconazole (DIFLUCAN) 200 mg tablet 04-06 00:00: 00 Yes [id number] 200mg Take 1 tablet by mouth in the morning. Take 1 tablet, then repeat next dose in 72 hours if sx. Persist. [facility] nystatin 100,000 unit/mL suspension 04-06 00:00: 00 Yes [id number] U Take 10 mL by mouth 4 (four) times daily. [facility] benzonatate (TESSALON PERLES) 100 mg capsule 04-06 00:00: 00 Yes [id number] 100mg Take 1 capsule by mouth every 8 (eight) hours as needed for Cough. November 1-2 capsules [facility] bromphenira mine-pseudo ephedrine-D M (BROMFED DM) 2-30-10 mg/5 mL syrup 04-06 00:00: 00 Yes [id number] 5mL Take 5 mL by mouth 4 (four) times daily as needed for Congestion /Allergies , Cold symptoms or Cough. [facility] fluconazole (DIFLUCAN) 200 mg tablet 04-06 00:00: 00 Yes [id number] 200mg Take 1 tablet by mouth in the morning. Take 1 tablet, then repeat next dose in 72 hours if sx. Persist. [facility] nystatin 100,000 unit/mL suspension 04-06 00:00: 00 Yes [id number] U Take 10 mL by mouth 4 (four) times daily. [facility] benzonatate (TESSALON PERLES) 100 mg capsule 04-06 00:00: 00 Yes [id number] 100mg Take 1 capsule by mouth every 8 (eight) hours as needed for Cough. November 1-2 capsules [facility] bromphenira mine-pseudo ephedrine-D M (BROMFED DM) 2-30-10 mg/5 mL syrup 04-06 00:00: 00 Yes [id number] 5mL Take 5 mL by mouth 4 (four) times daily as needed for Congestion /Allergies , Cold symptoms or Cough. [facility] fluconazole (DIFLUCAN) 200 mg tablet 04-06 00:00: 00 Yes [id number] 200mg Take 1 tablet by mouth in the morning. Take 1 tablet, then repeat next dose in 72 hours if sx. Persist. [facility] nystatin 100,000 unit/mL suspension 04-06 00:00: 00 Yes [id number] U Take 10 mL by mouth 4 (four) times daily. [facility] benzonatate (TESSALON PERLES) 100 mg capsule 04-06 00:00: 00 Yes [id number] 100mg Take 1 capsule by mouth every 8 (eight) hours as needed for Cough. November 1-2 capsules [facility] bromphenira mine-pseudo ephedrine-D M (BROMFED DM) 2-30-10 mg/5 mL syrup 0 18 00:00: 00 Yes [id number] 5mL Take 5 mL by mouth 4 (four) times daily as needed for Congestion /Allergies , Cold symptoms or Cough. [facility] fluconazole (DIFLUCAN) 200 mg tablet 04-06 00:00: 00 Yes [id number] 200mg Take 1 tablet by mouth in the morning. Take 1 tablet, then repeat next dose in 72 hours if sx. Persist. [facility] nystatin 100,000 unit/mL suspension 04-06 00:00: 00 Yes [id number] U Take 10 mL by mouth 4 (four) times daily. [facility] benzonatate (TESSALON PERLES) 100 mg capsule 04-06 00:00: 00 Yes [id number] 100mg Take 1 capsule by mouth every 8 (eight) hours as needed for Cough. November 1-2 capsules [facility] bromphenira mine-pseudo ephedrine-D M (BROMFED DM) 2-30-10 mg/5 mL syrup 04-06 00:00: 00 Yes [id number] 5mL Take 5 mL by mouth 4 (four) times daily as needed for Congestion /Allergies , Cold symptoms or Cough. [facility] fluconazole (DIFLUCAN) 200 mg tablet 04-06 00:00: 00 Yes [id number] 200mg Take 1 tablet by mouth in the morning. Take 1 tablet, then repeat next dose in 72 hours if sx. Persist. [facility] nystatin 100,000 unit/mL suspension 0 04-06 00:00: 00 Yes [id number] U Take 10 mL by mouth 4 (four) times daily. [facility] nystatin 100,000 unit/mL suspension 04-06 00:00: 00 Yes [id number] U Take 10 mL by mouth 4 (four) times daily. [facility] benzonatate (TESSALON PERLES) 100 mg capsule 04-06 00:00: 00 07-28 00:00 :00 No [id number] 100mg Take 1 capsule by mouth every 8 (eight) hours as needed for Cough. November 1-2 capsules [facility] bromphenira mine-pseudo ephedrine-D M (BROMFED DM) 2-30-10 mg/5 mL syrup 04-06 00:00: 00 07-28 00:00 :00 No [id number] 5mL Take 5 mL by mouth 4 (four) times daily as needed for Congestion /Allergies , Cold symptoms or Cough. [facility] fluconazole (DIFLUCAN) 200 mg tablet 04-06 00:00: 00 07-28 00:00 :00 No [id number] 200mg Take 1 tablet by mouth in the morning. Take 1 tablet, then repeat next dose in 72 hours if sx. Persist. [facility] benzonatate (TESSALON PERLES) 100 mg capsule 04-06 00:00: 00 07-28 00:00 :00 No [id number] 100mg Take 1 capsule by mouth every 8 (eight) hours as needed for Cough. November 1-2 capsules [facility] bromphenira mine-pseudo ephedrine-D M (BROMFED DM) 2-30-10 mg/5 mL syrup 04-06 00:00: 00 07-28 00:00 :00 No [id number] 5mL Take 5 mL by mouth 4 (four) times daily as needed for Congestion /Allergies , Cold symptoms or Cough. [facility] fluconazole (DIFLUCAN) 200 mg tablet 04-06 00:00: 00 07-28 00:00 :00 No [id number] 200mg Take 1 tablet by mouth in the morning. Take 1 tablet, then repeat next dose in 72 hours if sx. Persist. [facility] cephALEXin (KEFLEX) 500 mg capsule 04-06 00:00: 00 04-17 04:59 :00 No [id number] 500mg Take 1 capsule by mouth in the morning and 1 capsule at noon and 1 capsule in the evening. Do all this for 10 days. [facility] b complex vitamins (SUPER B-50 COMPLEX) capsule 02-17 15:10: 44 Yes 1{capsu le} Take 1 capsule by mouth in the morning. [facility] b complex vitamins (SUPER B-50 COMPLEX) capsule 02-17 15:10: 44 Yes 1{capsu le} Take 1 capsule by mouth in the morning. [facility] b complex vitamins (SUPER B-50 COMPLEX) capsule 02-17 15:10: 44 Yes 1{capsu le} Take 1 capsule by mouth in the morning. [facility] b complex vitamins (SUPER B-50 COMPLEX) capsule 02-17 15:10: 44 Yes 1{capsu le} Take 1 capsule by mouth in the morning. [facility] b complex vitamins (SUPER B-50 COMPLEX) capsule 02-17 15:10: 44 Yes 1{capsu le} Take 1 capsule by mouth in the morning. [facility] b complex vitamins (SUPER B-50 COMPLEX) capsule 02-17 15:10: 44 Yes 1{capsu le} Take 1 capsule by mouth in the morning. [facility] b complex vitamins (SUPER B-50 COMPLEX) capsule 02-17 15:10: 44 Yes 1{capsu le} Take 1 capsule by mouth in the morning. [facility] b complex vitamins (SUPER B-50 COMPLEX) capsule 02-17 15:10: 44 Yes 1{capsu le} Take 1 capsule by mouth in the morning. [facility] b complex vitamins (SUPER B-50 COMPLEX) capsule 02-17 15:10: 44 Yes 1{capsu le} Take 1 capsule by mouth in the morning. [facility] b complex vitamins (SUPER B-50 COMPLEX) capsule 02-17 15:10: 44 Yes 1{capsu le} Take 1 capsule by mouth in the morning. [facility] b complex vitamins (SUPER B-50 COMPLEX) capsule 0 02-17 15:10: 44 Yes 1{capsu le} Take 1 capsule by mouth in the morning. [facility] b complex vitamins (SUPER B-50 COMPLEX) capsule 0 02-17 15:10: 44 Yes 1{capsu le} Take 1 capsule by mouth in the morning. [facility] b complex vitamins (SUPER B-50 COMPLEX) capsule 0 02-17 15:10: 44 Yes 1{capsu le} Take 1 capsule by mouth in the morning. [facility] b complex vitamins (SUPER B-50 COMPLEX) capsule 0 02-17 15:10: 44 Yes 1{capsu le} Take 1 capsule by mouth in the morning. [facility] b complex vitamins (SUPER B-50 COMPLEX) capsule 02-17 15:10: 44 Yes 1{capsu le} Take 1 capsule by mouth in the morning. [facility] b complex vitamins (SUPER B-50 COMPLEX) capsule 0 02-17 15:10: 44 Yes 1{capsu le} Take 1 capsule by mouth in the morning. [facility] b complex vitamins (SUPER B-50 COMPLEX) capsule 02-17 15:10: 44 Yes 1{capsu le} Take 1 capsule by mouth in the morning. [facility] valsartan 40 mg tablet 02-17 00:00: 00 Yes [id number] 40mg Take 1 tablet by mouth in the morning and 1 tablet in the evening. [facility] atorvastati n 20 mg tablet 2022-0 02-17 00:00: 00 Yes [id number] 20mg Take 1 tablet by mouth at bedtime. [facility] valsartan 40 mg tablet 02-17 00:00: 00 Yes [id number] 40mg Take 1 tablet by mouth in the morning and 1 tablet in the evening. [facility] atorvastati n 20 mg tablet 2022-0 02-17 00:00: 00 Yes [id number] 20mg Take 1 tablet by mouth at bedtime. [facility] valsartan 40 mg tablet 2022-0 8 00:00: 00 Yes [id number] 40mg Take 1 tablet by mouth in the morning and 1 tablet in the evening. [facility] atorvastati n 20 mg tablet 3-0 8 00:00: 00 Yes [id number] 20mg Take 1 tablet by mouth at bedtime. [facility] valsartan 40 mg tablet 3-0 02-17 00:00: 00 Yes [id number] 40mg Take 1 tablet by mouth in the morning and 1 tablet in the evening. [facility] atorvastati n 20 mg tablet 2022-0 02-17 00:00: 00 Yes [id number] 20mg Take 1 tablet by mouth at bedtime. [facility] valsartan 40 mg tablet 2022-0 02-17 00:00: 00 Yes [id number] 40mg Take 1 tablet by mouth in the morning and 1 tablet in the evening. [facility] atorvastati n 20 mg tablet 2022-0 02-17 00:00: 00 Yes [id number] 20mg Take 1 tablet by mouth at bedtime. [facility] valsartan 40 mg tablet 2022-0 02-17 00:00: 00 Yes [id number] 40mg Take 1 tablet by mouth in the morning and 1 tablet in the evening. [facility] atorvastati n 20 mg tablet 2022-0 02-17 00:00: 00 Yes [id number] 20mg Take 1 tablet by mouth at bedtime. [facility] valsartan 40 mg tablet 3-0 8 00:00: 00 Yes [id number] 40mg Take 1 tablet by mouth in the morning and 1 tablet in the evening. [facility] atorvastati n 20 mg tablet 3-0 8 00:00: 00 Yes [id number] 20mg Take 1 tablet by mouth at bedtime. [facility] valsartan 40 mg tablet 3-0 8 00:00: 00 Yes [id number] 40mg Take 1 tablet by mouth in the morning and 1 tablet in the evening. [facility] atorvastati n 20 mg tablet 2022-0 02-17 00:00: 00 Yes [id number] 20mg Take 1 tablet by mouth at bedtime. [facility] valsartan 40 mg tablet 2022-0 02-17 00:00: 00 Yes [id number] 40mg Take 1 tablet by mouth in the morning and 1 tablet in the evening. [facility] atorvastati n 20 mg tablet 2022-0 02-17 00:00: 00 Yes [id number] 20mg Take 1 tablet by mouth at bedtime. [facility] valsartan 40 mg tablet 2022-0 02-17 00:00: 00 Yes [id number] 40mg Take 1 tablet by mouth in the morning and 1 tablet in the evening. [facility] atorvastati n 20 mg tablet 2022-0 02-17 00:00: 00 Yes [id number] 20mg Take 1 tablet by mouth at bedtime. [facility] valsartan 40 mg tablet 2022-0 02-17 00:00: 00 Yes [id number] 40mg Take 1 tablet by mouth in the morning and 1 tablet in the evening. [facility] atorvastati n 20 mg tablet 2022-0 02-17 00:00: 00 Yes [id number] 20mg Take 1 tablet by mouth at bedtime. [facility] valsartan 40 mg tablet 2022-0 02-17 00:00: 00 Yes [id number] 40mg Take 1 tablet by mouth in the morning and 1 tablet in the evening. [facility] atorvastati n 20 mg tablet 2022-0 02-17 00:00: 00 Yes [id number] 20mg Take 1 tablet by mouth at bedtime. [facility] valsartan 40 mg tablet 2022-0 02-17 00:00: 00 Yes [id number] 40mg Take 1 tablet by mouth in the morning and 1 tablet in the evening. [facility] atorvastati n 20 mg tablet 2022-0 - 00:00: 00 Yes [id number] 20mg Take 1 tablet by mouth at bedtime. [facility] valsartan 40 mg tablet 0 8- 00:00: 00 Yes [id number] 40mg Take 1 tablet by mouth in the morning and 1 tablet in the evening. [facility] atorvastati n 20 mg tablet 2022-0 8- 00:00: 00 Yes [id number] 20mg Take 1 tablet by mouth at bedtime. [facility] valsartan 40 mg tablet 2022-0 - 00:00: 00 Yes [id number] 40mg Take 1 tablet by mouth in the morning and 1 tablet in the evening. [facility] atorvastati n 20 mg tablet 2022-0 02-17 00:00: 00 Yes [id number] 20mg Take 1 tablet by mouth at bedtime. [facility] valsartan 40 mg tablet 0 02-17 00:00: 00 Yes [id number] 40mg Take 1 tablet by mouth in the morning and 1 tablet in the evening. [facility] atorvastati n 20 mg tablet 0 02-17 00:00: 00 Yes [id number] 20mg Take 1 tablet by mouth at bedtime. [facility] valsartan 40 mg tablet 0 02-17 00:00: 00 Yes [id number] 40mg Take 1 tablet by mouth in the morning and 1 tablet in the evening. [facility] atorvastati n 20 mg tablet 2022-0 02-17 00:00: 00 Yes [id number] 20mg Take 1 tablet by mouth at bedtime. [facility] ergocalcife rol, vitamin D2, (VITAMIN D ORAL) 0 02-04 14:52: 16 Yes Take by mouth daily. [facility] ergocalcife rol, vitamin D2, (VITAMIN D ORAL) 0 02-04 14:52: 16 Yes Take by mouth daily. [facility] ergocalcife rol, vitamin D2, (VITAMIN D ORAL) 0 02-04 14:52: 16 Yes Take by mouth daily. [facility] ergocalcife rol, vitamin D2, (VITAMIN D ORAL) 02-04 14:52: 16 Yes Take by mouth daily. [facility] ergocalcife rol, vitamin D2, (VITAMIN D ORAL) 02-04 14:52: 16 Yes Take by mouth daily. [facility] ergocalcife rol, vitamin D2, (VITAMIN D ORAL) 02-04 14:52: 16 Yes Take by mouth daily. [facility] ergocalcife rol, vitamin D2, (VITAMIN D ORAL) 02-04 14:52: 16 Yes Take by mouth daily. [facility] ergocalcife rol, vitamin D2, (VITAMIN D ORAL) 02-04 14:52: 16 Yes Take by mouth daily. [facility] ergocalcife rol, vitamin D2, (VITAMIN D ORAL) 02-04 14:52: 16 Yes Take by mouth daily. [facility] ergocalcife rol, vitamin D2, (VITAMIN D ORAL) 02-04 14:52: 16 Yes Take by mouth daily. [facility] ergocalcife rol, vitamin D2, (VITAMIN D ORAL) 02-04 14:52: 16 Yes Take by mouth daily. [facility] ergocalcife rol, vitamin D2, (VITAMIN D ORAL) 02-04 14:52: 16 Yes Take by mouth daily. [facility] ergocalcife rol, vitamin D2, (VITAMIN D ORAL) 02-04 14:52: 16 Yes Take by mouth daily. [facility] ergocalcife rol, vitamin D2, (VITAMIN D ORAL) 02-04 14:52: 16 Yes Take by mouth daily. [facility] ergocalcife rol, vitamin D2, (VITAMIN D ORAL) 02-04 14:52: 16 Yes Take by mouth daily. [facility] ergocalcife rol, vitamin D2, (VITAMIN D ORAL) 02-04 14:52: 16 Yes Take by mouth daily. [facility] ergocalcife rol, vitamin D2, (VITAMIN D ORAL) 02-04 14:52: 16 Yes Take by mouth daily. [facility] ergocalcife rol, vitamin D2, (VITAMIN D ORAL) 02-04 14:52: 16 Yes Take by mouth daily. [facility] ergocalcife rol, vitamin D2, (VITAMIN D ORAL) 02-04 14:52: 16 Yes Take by mouth daily. [facility] ergocalcife rol, vitamin D2, (VITAMIN D ORAL) 02-04 14:52: 16 Yes Take by mouth daily. [facility] semaglutide , weight loss, (WEGOVY) 0.25 mg/0.5 mL PnIj SC injection 02-04 00:00: 00 Yes [id number] 105 Start: 0.25mg SC qWeek x 4 Weeks; then 0.5mg SC qWeek x 4 Weeks; then 1mg SC qWeek x 4 Weeks; thes1.7mg SC qWeek x 4 Weeks; then 2.4mg qWeek. [facility] semaglutide , weight loss, (WEGOVY) 0.25 mg/0.5 mL PnIj SC injection 02-04 00:00: 00 Yes [id number] 105 Start: 0.25mg SC qWeek x 4 Weeks; then 0.5mg SC qWeek x 4 Weeks; then 1mg SC qWeek x 4 Weeks; thes1.7mg SC qWeek x 4 Weeks; then 2.4mg qWeek. [facility] semaglutide , weight loss, (WEGOVY) 0.25 mg/0.5 mL PnIj SC injection 02-04 00:00: 00 Yes [id number] 105 Start: 0.25mg SC qWeek x 4 Weeks; then 0.5mg SC qWeek x 4 Weeks; then 1mg SC qWeek x 4 Weeks; thes1.7mg SC qWeek x 4 Weeks; then 2.4mg qWeek. [facility] semaglutide , weight loss, (WEGOVY) 0.25 mg/0.5 mL PnIj SC injection 02-04 00:00: 00 Yes [id number] 105 Start: 0.25mg SC qWeek x 4 Weeks; then 0.5mg SC qWeek x 4 Weeks; then 1mg SC qWeek x 4 Weeks; thes1.7mg SC qWeek x 4 Weeks; then 2.4mg qWeek. [facility] semaglutide , weight loss, (WEGOVY) 0.25 mg/0.5 mL PnIj SC injection 02-04 00:00: 00 Yes [id number] 105 Start: 0.25mg SC qWeek x 4 Weeks; then 0.5mg SC qWeek x 4 Weeks; then 1mg SC qWeek x 4 Weeks; thes1.7mg SC qWeek x 4 Weeks; then 2.4mg qWeek. [facility] semaglutide , weight loss, (WEGOVY) 0.25 mg/0.5 mL PnIj SC injection 02-04 00:00: 00 Yes [id number] 105 Start: 0.25mg SC qWeek x 4 Weeks; then 0.5mg SC qWeek x 4 Weeks; then 1mg SC qWeek x 4 Weeks; thes1.7mg SC qWeek x 4 Weeks; then 2.4mg qWeek. [facility] semaglutide , weight loss, (WEGOVY) 0.25 mg/0.5 mL PnIj SC injection 02-04 00:00: 00 Yes [id number] 105 Start: 0.25mg SC qWeek x 4 Weeks; then 0.5mg SC qWeek x 4 Weeks; then 1mg SC qWeek x 4 Weeks; thes1.7mg SC qWeek x 4 Weeks; then 2.4mg qWeek. [facility] semaglutide , weight loss, (WEGOVY) 0.25 mg/0.5 mL PnIj SC injection 02-04 00:00: 00 Yes [id number] 105 Start: 0.25mg SC qWeek x 4 Weeks; then 0.5mg SC qWeek x 4 Weeks; then 1mg SC qWeek x 4 Weeks; thes1.7mg SC qWeek x 4 Weeks; then 2.4mg qWeek. [facility] semaglutide , weight loss, (WEGOVY) 0.25 mg/0.5 mL PnIj SC injection 02-04 00:00: 00 Yes [id number] 105 Start: 0.25mg SC qWeek x 4 Weeks; then 0.5mg SC qWeek x 4 Weeks; then 1mg SC qWeek x 4 Weeks; thes1.7mg SC qWeek x 4 Weeks; then 2.4mg qWeek. [facility] semaglutide , weight loss, (WEGOVY) 0.25 mg/0.5 mL PnIj SC injection 02-04 00:00: 00 Yes [id number] 105 Start: 0.25mg SC qWeek x 4 Weeks; then 0.5mg SC qWeek x 4 Weeks; then 1mg SC qWeek x 4 Weeks; thes1.7mg SC qWeek x 4 Weeks; then 2.4mg qWeek. [facility] semaglutide , weight loss, (WEGOVY) 0.25 mg/0.5 mL PnIj SC injection 02-04 00:00: 00 Yes [id number] 105 Start: 0.25mg SC qWeek x 4 Weeks; then 0.5mg SC qWeek x 4 Weeks; then 1mg SC qWeek x 4 Weeks; thes1.7mg SC qWeek x 4 Weeks; then 2.4mg qWeek. [facility] semaglutide , weight loss, (WEGOVY) 0.25 mg/0.5 mL PnIj SC injection 02-04 00:00: 00 Yes [id number] 105 Start: 0.25mg SC qWeek x 4 Weeks; then 0.5mg SC qWeek x 4 Weeks; then 1mg SC qWeek x 4 Weeks; thes1.7mg SC qWeek x 4 Weeks; then 2.4mg qWeek. [facility] semaglutide , weight loss, (WEGOVY) 0.25 mg/0.5 mL PnIj SC injection 02-04 00:00: 00 Yes [id number] 105 Start: 0.25mg SC qWeek x 4 Weeks; then 0.5mg SC qWeek x 4 Weeks; then 1mg SC qWeek x 4 Weeks; thes1.7mg SC qWeek x 4 Weeks; then 2.4mg qWeek. [facility] semaglutide , weight loss, (WEGOVY) 0.25 mg/0.5 mL PnIj SC injection 02-04 00:00: 00 Yes [id number] 105 Start: 0.25mg SC qWeek x 4 Weeks; then 0.5mg SC qWeek x 4 Weeks; then 1mg SC qWeek x 4 Weeks; thes1.7mg SC qWeek x 4 Weeks; then 2.4mg qWeek. [facility] semaglutide , weight loss, (WEGOVY) 0.25 mg/0.5 mL PnIj SC injection 02-04 00:00: 00 Yes [id number] 105 Start: 0.25mg SC qWeek x 4 Weeks; then 0.5mg SC qWeek x 4 Weeks; then 1mg SC qWeek x 4 Weeks; thes1.7mg SC qWeek x 4 Weeks; then 2.4mg qWeek. [facility] semaglutide , weight loss, (WEGOVY) 0.25 mg/0.5 mL PnIj SC injection 02-04 00:00: 00 Yes [id number] 105 Start: 0.25mg SC qWeek x 4 Weeks; then 0.5mg SC qWeek x 4 Weeks; then 1mg SC qWeek x 4 Weeks; thes1.7mg SC qWeek x 4 Weeks; then 2.4mg qWeek. [facility] semaglutide , weight loss, (WEGOVY) 0.25 mg/0.5 mL PnIj SC injection 02-04 00:00: 00 Yes [id number] 105 Start: 0.25mg SC qWeek x 4 Weeks; then 0.5mg SC qWeek x 4 Weeks; then 1mg SC qWeek x 4 Weeks; thes1.7mg SC qWeek x 4 Weeks; then 2.4mg qWeek. [facility] semaglutide , weight loss, (WEGOVY) 0.25 mg/0.5 mL PnIj SC injection 02-04 00:00: 00 Yes [id number] 105 Start: 0.25mg SC qWeek x 4 Weeks; then 0.5mg SC qWeek x 4 Weeks; then 1mg SC qWeek x 4 Weeks; thes1.7mg SC qWeek x 4 Weeks; then 2.4mg qWeek. [facility] semaglutide , weight loss, (WEGOVY) 0.25 mg/0.5 mL PnIj SC injection 02-04 00:00: 00 Yes [id number] 105 Start: 0.25mg SC qWeek x 4 Weeks; then 0.5mg SC qWeek x 4 Weeks; then 1mg SC qWeek x 4 Weeks; thes1.7mg SC qWeek x 4 Weeks; then 2.4mg qWeek. [facility] fluconazole (DIFLUCAN) 200 mg tablet 02-03 00:00: 00 Yes [id number] 200mg Take 1 tablet by mouth in the morning. Take 1 tablet, then repeat next dose in 72 hours if sx. Persist. [facility] fluconazole (DIFLUCAN) 200 mg tablet 02-03 00:00: 00 Yes [id number] 200mg Take 1 tablet by mouth in the morning. Take 1 tablet, then repeat next dose in 72 hours if sx. Persist. [facility] fluconazole (DIFLUCAN) 200 mg tablet 02-03 00:00: 00 Yes [id number] 200mg Take 1 tablet by mouth in the morning. Take 1 tablet, then repeat next dose in 72 hours if sx. Persist. [facility] fluconazole (DIFLUCAN) 200 mg tablet 02-03 00:00: 00 Yes [id number] 200mg Take 1 tablet by mouth in the morning. Take 1 tablet, then repeat next dose in 72 hours if sx. Persist. [facility] fluconazole (DIFLUCAN) 200 mg tablet 0 18 00:00: 00 02-04 00:00 :00 No [id number] 200mg Take 1 tablet by mouth in the morning. Take 1 tablet, then repeat next dose in 72 hours if sx. Persist. [facility] fluconazole (DIFLUCAN) 200 mg tablet 18 00:00: 00 02-04 00:00 :00 No [id number] 200mg Take 1 tablet by mouth in the morning. Take 1 tablet, then repeat next dose in 72 hours if sx. Persist. [facility] fluconazole (DIFLUCAN) 200 mg tablet 02-03 00:00: 00 02-04 00:00 :00 No [id number] 200mg Take 1 tablet by mouth in the morning. Take 1 tablet, then repeat next dose in 72 hours if sx. Persist. [facility] cyanocobala min (DODEX) injection 2,000 mcg 3-0 7-17 05:00: 00 12-08 04:59 :00 No [id number] 2000ug [facility] cyanocobala min (DODEX) injection 2,000 mcg 3-0 7-17 05:00: 00 12-08 04:59 :00 No [id number] 2000ug [facility] cyanocobala min (DODEX) injection 2,000 mcg 2023-0 7-17 05:00: 00 12-08 04:59 :00 No [id number] 2000ug [facility] cyanocobala min (DODEX) injection 2,000 mcg 2023-0 7-17 05:00: 00 12-08 04:59 :00 No [id number] 2000ug [facility] cyanocobala min (DODEX) injection 2,000 mcg 2023-0 7-17 05:00: 00 12-08 04:59 :00 No [id number] 2000ug [facility] cyanocobala min (DODEX) injection 2,000 mcg 2023-0 7-17 05:00: 00 12-08 04:59 :00 No [id number] 2000ug 2,000 mcg, Intramuscu lar, MONTHLY, 10 doses, First dose on Thu02/02/23 at 0000, Last dose on Thu11/08/23 at 0000, Routine [facility] cyanocobala min (DODEX) injection 2,000 mcg 2023-0 7-17 05:00: 00 12-08 04:59 :00 No [id number] 2000ug [facility] cyanocobala min (DODEX) injection 2,000 mcg 2023-0 7-17 05:00: 00 12-08 04:59 :00 No [id number] 2000ug 2,000 mcg, Intramuscu lar, MONTHLY, 10 doses, First dose on Thu02/02/23 at 0000, Last dose on 11/08/23 at 0000, Routine [facility] cyanocobala min (DODEX) injection 2,000 mcg 2023-0 7-17 05:00: 00 12-08 04:59 :00 No [id number] 2000ug [facility] cyanocobala min (DODEX) injection 2,000 mcg 2023-0 7-17 05:00: 00 12-08 04:59 :00 No [id number] 2000ug [facility] cyanocobala min (DODEX) injection 2,000 mcg 2023-0 7-17 05:00: 00 12-08 04:59 :00 No [id number] 2000ug [facility] cyanocobala min (DODEX) injection 2,000 mcg 2023-0 7-17 05:00: 00 12-08 04:59 :00 No [id number] 2000ug [facility] cyanocobala min (DODEX) injection 2,000 mcg 2023-0 7-17 05:00: 00 12-08 04:59 :00 No [id number] 2000ug [facility] cyanocobala min (DODEX) injection 2,000 mcg 2023-0 7-17 05:00: 00 12-08 04:59 :00 No [id number] 2000ug [facility] cyanocobala min (DODEX) injection 2,000 mcg 2023-0 7-17 05:00: 00 12-08 04:59 :00 No [id number] 2000ug [facility] cyanocobala min (DODEX) injection 2,000 mcg 2023-0 7-17 05:00: 00 12-08 04:59 :00 No [id number] 2000ug [facility] cyanocobala min (DODEX) injection 2,000 mcg 2023-0 7-17 05:00: 00 12-08 04:59 :00 No [id number] 2000ug [facility] cyanocobala min (DODEX) injection 2,000 mcg 2023-0 7-17 05:00: 00 12-08 04:59 :00 No [id number] 2000ug [facility] cyanocobala min (DODEX) injection 2,000 mcg 2023-0 7-17 05:00: 00 12-08 04:59 :00 No [id number] 2000ug [facility] cyanocobala min (DODEX) injection 2,000 mcg 2023-0 7-17 05:00: 00 12-08 04:59 :00 No [id number] 2000ug [facility] cyanocobala min (DODEX) injection 2,000 mcg 2023-0 7-17 05:00: 00 12-08 04:59 :00 No [id number] 2000ug [facility] cyanocobala min (DODEX) injection 2,000 mcg 2023-0 7-17 05:00: 00 12-08 04:59 :00 No [id number] 2000ug [facility] cyanocobala min (DODEX) injection 2,000 mcg 2023-0 7-17 05:00: 00 12-08 04:59 :00 No [id number] 2000ug [facility] cyanocobala min (DODEX) injection 2,000 mcg 2023-0 7-17 05:00: 00 12-08 04:59 :00 No [id number] 2000ug [facility] cyanocobala min (DODEX) injection 2,000 mcg 02-02 05:00: 00 12-08 04:59 :00 No [id number] 2000ug [facility] cyanocobala min (DODEX) injection 2,000 mcg 02-02 05:00: 00 12-08 04:59 :00 No [id number] 2000ug [facility] albuterol 90 mcg/actuati on inhaler 01-28 00:00: 00 Yes [id number] 2{puff} Inhale 2 Puffs every 6 (six) hours as needed for Wheezing or Shortness of Breath. [facility] albuterol 90 mcg/actuati on inhaler 01-28 00:00: 00 Yes [id number] 2{puff} Inhale 2 Puffs every 6 (six) hours as needed for Wheezing or Shortness of Breath. [facility] albuterol 90 mcg/actuati on inhaler 01-28 00:00: 00 Yes [id number] 2{puff} Inhale 2 Puffs every 6 (six) hours as needed for Wheezing or Shortness of Breath. [facility] albuterol 90 mcg/actuati on inhaler 01-28 00:00: 00 Yes [id number] 2{puff} Inhale 2 Puffs every 6 (six) hours as needed for Wheezing or Shortness of Breath. [facility] albuterol 90 mcg/actuati on inhaler 01-28 00:00: 00 Yes [id number] 2{puff} Inhale 2 Puffs every 6 (six) hours as needed for Wheezing or Shortness of Breath. [facility] albuterol 90 mcg/actuati on inhaler 01-28 00:00: 00 Yes [id number] 2{puff} Inhale 2 Puffs every 6 (six) hours as needed for Wheezing or Shortness of Breath. [facility] albuterol 90 mcg/actuati on inhaler 01-28 00:00: 00 Yes [id number] 2{puff} Inhale 2 Puffs every 6 (six) hours as needed for Wheezing or Shortness of Breath. [facility] albuterol 90 mcg/actuati on inhaler 01-28 00:00: 00 Yes [id number] 2{puff} Inhale 2 Puffs every 6 (six) hours as needed for Wheezing or Shortness of Breath. [facility] albuterol 90 mcg/actuati on inhaler 01-28 00:00: 00 Yes [id number] 2{puff} Inhale 2 Puffs every 6 (six) hours as needed for Wheezing or Shortness of Breath. [facility] albuterol 90 mcg/actuati on inhaler 01-28 00:00: 00 Yes [id number] 9103 2{puff} Inhale 2 Puffs every 6 (six) hours as needed for Wheezing or Shortness of Breath. [facility] albuterol 90 mcg/actuati on inhaler 01-28 00:00: 00 Yes [id number] 2{puff} Inhale 2 Puffs every 6 (six) hours as needed for Wheezing or Shortness of Breath. [facility] albuterol 90 mcg/actuati on inhaler 01-28 00:00: 00 Yes [id number] 9103 2{puff} Inhale 2 Puffs every 6 (six) hours as needed for Wheezing or Shortness of Breath. [facility] albuterol 90 mcg/actuati on inhaler 01-28 00:00: 00 Yes [id number] 2{puff} Inhale 2 Puffs every 6 (six) hours as needed for Wheezing or Shortness of Breath. [facility] albuterol 90 mcg/actuati on inhaler 01-28 00:00: 00 Yes [id number] 9103 2{puff} Inhale 2 Puffs every 6 (six) hours as needed for Wheezing or Shortness of Breath. [facility] albuterol 90 mcg/actuati on inhaler 01-28 00:00: 00 Yes [id number] 9103 2{puff} Inhale 2 Puffs every 6 (six) hours as needed for Wheezing or Shortness of Breath. [facility] albuterol 90 mcg/actuati on inhaler 01-28 00:00: 00 Yes [id number] 2{puff} Inhale 2 Puffs every 6 (six) hours as needed for Wheezing or Shortness of Breath. [facility] albuterol 90 mcg/actuati on inhaler 01-28 00:00: 00 Yes [id number] 9103 2{puff} Inhale 2 Puffs every 6 (six) hours as needed for Wheezing or Shortness of Breath. [facility] albuterol 90 mcg/actuati on inhaler 01-28 00:00: 00 Yes [id number] 9103 2{puff} Inhale 2 Puffs every 6 (six) hours as needed for Wheezing or Shortness of Breath. [facility] albuterol 90 mcg/actuati on inhaler 01-28 00:00: 00 07-28 00:00 :00 No [id number] 2{puff} Inhale 2 Puffs every 6 (six) hours as needed for Wheezing or Shortness of Breath. [facility] albuterol 90 mcg/actuati on inhaler 01-28 00:00: 00 07-28 00:00 :00 No [id number] 9103 2{puff} Inhale 2 Puffs every 6 (six) hours as needed for Wheezing or Shortness of Breath. [facility] Nebulizer Accessories Kit 01-26 00:00: 00 Yes [id number] Use as directed. Brand per Insurance. [facility] ipratropium 0.02 % nebulizer solution 01-26 00:00: 00 Yes [id number] .5mg Inhale 2.5 mL every 4 (four) hours as needed for Wheezing, Shortness of Breath, Chest tightness or Bronchospa sm. [facility] albuterol 2.5 mg /3 mL (0.083 %) nebulizer solution 01-26 00:00: 00 Yes [id number] 2.5mg Inhale 3 mL every 4 (four) hours as needed for Wheezing, Shortness of Breath, Bronchospa sm or Chest tightness. [facility] molnupiravi r 200 mg capsule 01-26 00:00: 00 Yes [id number] 800mg Take 4 capsules by mouth every 12 (twelve) hours. [facility] Nebulizer Accessories Kit 01-26 00:00: 00 Yes [id number] Use as directed. Brand per Insurance. [facility] ipratropium 0.02 % nebulizer solution 01-26 00:00: 00 Yes [id number] .5mg Inhale 2.5 mL every 4 (four) hours as needed for Wheezing, Shortness of Breath, Chest tightness or Bronchospa sm. [facility] albuterol 2.5 mg /3 mL (0.083 %) nebulizer solution 01-26 00:00: 00 Yes [id number] 2.5mg Inhale 3 mL every 4 (four) hours as needed for Wheezing, Shortness of Breath, Bronchospa sm or Chest tightness. [facility] molnupiravi r 200 mg capsule 01-26 00:00: 00 Yes [id number] 800mg Take 4 capsules by mouth every 12 (twelve) hours. [facility] Nebulizer Accessories Kit 01-26 00:00: 00 Yes [id number] Use as directed. Brand per Insurance. [facility] ipratropium 0.02 % nebulizer solution 01-26 00:00: 00 Yes [id number] .5mg Inhale 2.5 mL every 4 (four) hours as needed for Wheezing, Shortness of Breath, Chest tightness or Bronchospa sm. [facility] albuterol 2.5 mg /3 mL (0.083 %) nebulizer solution 01-26 00:00: 00 Yes [id number] 2.5mg Inhale 3 mL every 4 (four) hours as needed for Wheezing, Shortness of Breath, Bronchospa sm or Chest tightness. [facility] molnupiravi r 200 mg capsule 01-26 00:00: 00 Yes [id number] 800mg Take 4 capsules by mouth every 12 (twelve) hours. [facility] Nebulizer Accessories Kit 01-26 00:00: 00 Yes [id number] Use as directed. Brand per Insurance. [facility] ipratropium 0.02 % nebulizer solution 01-26 00:00: 00 Yes [id number] .5mg Inhale 2.5 mL every 4 (four) hours as needed for Wheezing, Shortness of Breath, Chest tightness or Bronchospa sm. [facility] albuterol 2.5 mg /3 mL (0.083 %) nebulizer solution 01-26 00:00: 00 Yes [id number] 2.5mg Inhale 3 mL every 4 (four) hours as needed for Wheezing, Shortness of Breath, Bronchospa sm or Chest tightness. [facility] molnupiravi r 200 mg capsule 01-26 00:00: 00 Yes [id number] 800mg Take 4 capsules by mouth every 12 (twelve) hours. [facility] Nebulizer Accessories Kit 01-26 00:00: 00 Yes [id number] Use as directed. Brand per Insurance. [facility] ipratropium 0.02 % nebulizer solution 01-26 00:00: 00 Yes [id number] .5mg Inhale 2.5 mL every 4 (four) hours as needed for Wheezing, Shortness of Breath, Chest tightness or Bronchospa sm. [facility] albuterol 2.5 mg /3 mL (0.083 %) nebulizer solution 01-26 00:00: 00 Yes [id number] 2.5mg Inhale 3 mL every 4 (four) hours as needed for Wheezing, Shortness of Breath, Bronchospa sm or Chest tightness. [facility] Nebulizer Accessories Kit 01-26 00:00: 00 Yes [id number] Use as directed. Brand per Insurance. [facility] ipratropium 0.02 % nebulizer solution 0 01-26 00:00: 00 Yes [id number] .5mg Inhale 2.5 mL every 4 (four) hours as needed for Wheezing, Shortness of Breath, Chest tightness or Bronchospa sm. [facility] albuterol 2.5 mg /3 mL (0.083 %) nebulizer solution 0 01-26 00:00: 00 Yes [id number] 2.5mg Inhale 3 mL every 4 (four) hours as needed for Wheezing, Shortness of Breath, Bronchospa sm or Chest tightness. [facility] Nebulizer Accessories Kit 01-26 00:00: 00 Yes [id number] Use as directed. Brand per Insurance. [facility] ipratropium 0.02 % nebulizer solution 01-26 00:00: 00 Yes [id number] .5mg Inhale 2.5 mL every 4 (four) hours as needed for Wheezing, Shortness of Breath, Chest tightness or Bronchospa sm. [facility] albuterol 2.5 mg /3 mL (0.083 %) nebulizer solution 0 01-26 00:00: 00 Yes [id number] 2.5mg Inhale 3 mL every 4 (four) hours as needed for Wheezing, Shortness of Breath, Bronchospa sm or Chest tightness. [facility] Nebulizer Accessories Kit 0 01-26 00:00: 00 Yes [id number] Use as directed. Brand per Insurance. [facility] ipratropium 0.02 % nebulizer solution 0 01-26 00:00: 00 Yes [id number] .5mg Inhale 2.5 mL every 4 (four) hours as needed for Wheezing, Shortness of Breath, Chest tightness or Bronchospa sm. [facility] albuterol 2.5 mg /3 mL (0.083 %) nebulizer solution 0 01-26 00:00: 00 Yes [id number] 2.5mg Inhale 3 mL every 4 (four) hours as needed for Wheezing, Shortness of Breath, Bronchospa sm or Chest tightness. [facility] Nebulizer Accessories Kit 01-26 00:00: 00 Yes [id number] Use as directed. Brand per Insurance. [facility]bul[facility] solution 01-26 00:00: 00 Yes [id number] .5mg Inhale 2.5 mL every 4 (four) hours as needed for Wheezing, Shortness of Breath, Chest tightness or Bronchospa sm. [facility] albuterol 2.5 mg /3 mL (0.083 %) nebulizer solution 01-26 00:00: 00 Yes [id number] 2.5mg Inhale 3 mL every 4 (four) hours as needed for Wheezing, Shortness of Breath, Bronchospa sm or Chest tightness. [facility] Nebulizer Accessories Kit 01-26 00:00: 00 Yes [id number] Use as directed. Brand per Insurance. [facility] ipratropium 0.02 % nebulizer solution 01-26 00:00: 00 Yes [id number] .5mg Inhale 2.5 mL every 4 (four) hours as needed for Wheezing, Shortness of Breath, Chest tightness or Bronchospa sm. [facility] albuterol 2.5 mg /3 mL (0.083 %) nebulizer solution 01-26 00:00: 00 Yes [id number] 2.5mg Inhale 3 mL every 4 (four) hours as needed for Wheezing, Shortness of Breath, Bronchospa sm or Chest tightness. [facility] Nebulizer Accessories Kit 01-26 00:00: 00 Yes [id number] Use as directed. Brand per Insurance. [facility] nebulizer solution 01-26 00:00: 00 Yes [id number] .5mg Inhale 2.5 mL every 4 (four) hours as needed for Wheezing, Shortness of Breath, Chest tightness or Bronchospa sm. [facility]erol 2.5 mg /3 mL (0.083 %) nebulizer solution 01-26 00:00: 00 Yes [id number] 2.5mg Inhale 3 mL every 4 (four) hours as needed for Wheezing, Shortness of Breath, Bronchospa sm or Chest tightness. [facility] Nebulizer Accessories Kit 01-26 00:00: 00 Yes [id number] Use as directed. Brand per Insurance. [facility] ipratropium 0.02 % nebulizer solution 01-26 00:00: 00 Yes [id number] .5mg Inhale 2.5 mL every 4 (four) hours as needed for Wheezing, Shortness of Breath, Chest tightness or Bronchospa sm. [facility] 2.5 mg /3 mL (0.083 %) nebulizer solution 01-26 00:00: 00 Yes [id number] 2.5mg Inhale 3 mL every 4 (four) hours as needed for Wheezing, Shortness of Breath, Bronchospa sm or Chest tightness. [facility] Nebulizer Accessories Kit 01-26 00:00: 00 Yes [id number] Use as directed. Brand per Insurance. [facility] ipratropium 0.02 % nebulizer solution 01-26 00:00: 00 Yes [id number] .5mg Inhale 2.5 mL every 4 (four) hours as needed for Wheezing, Shortness of Breath, Chest tightness or Bronchospa sm. [facility] albuterol 2.5 mg /3 mL (0.083 %) nebulizer solution 01-26 00:00: 00 Yes [id number] 2.5mg Inhale 3 mL every 4 (four) hours as needed for Wheezing, Shortness of Breath, Bronchospa sm or Chest tightness. [facility] Nebulizer Accessories Kit 01-26 00:00: 00 Yes [id number] Use as directed. Brand per Insurance. [facility] ipratropium 0.02 % nebulizer solution 01-26 00:00: 00 Yes [id number] .5mg Inhale 2.5 mL every 4 (four) hours as needed for Wheezing, Shortness of Breath, Chest tightness or Bronchospa sm. [facility] albuterol 2.5 mg /3 mL (0.083 %) nebulizer solution 01-26 00:00: 00 Yes [id number] 2.5mg Inhale 3 mL every 4 (four) hours as needed for Wheezing, Shortness of Breath, Bronchospa sm or Chest tightness. [facility] Nebulizer Accessories Kit 01-26 00:00: 00 Yes [id number] Use as directed. Brand per Insurance. [facility] ipratropium 0.02 % nebulizer solution 01-26 00:00: 00 Yes [id number] .5mg Inhale 2.5 mL every 4 (four) hours as needed for Wheezing, Shortness of Breath, Chest tightness or Bronchospa sm. [facility] albuterol 2.5 mg /3 mL (0.083 %) nebulizer solution 01-26 00:00: 00 Yes [id number] 2.5mg Inhale 3 mL every 4 (four) hours as needed for Wheezing, Shortness of Breath, Bronchospa sm or Chest tightness. [facility] Nebulizer Accessories Kit 01-26 00:00: 00 Yes [id number] Use as directed. Brand per Insurance. [facility] ipratropium 0.02 % nebulizer solution 01-26 00:00: 00 Yes [id number] .5mg Inhale 2.5 mL every 4 (four) hours as needed for Wheezing, Shortness of Breath, Chest tightness or Bronchospa sm. [facility] albuterol 2.5 mg /3 mL (0.083 %) nebulizer solution 01-26 00:00: 00 Yes [id number] 2.5mg Inhale 3 mL every 4 (four) hours as needed for Wheezing, Shortness of Breath, Bronchospa sm or Chest tightness. [facility] Nebulizer Accessories Kit 01-26 00:00: 00 Yes [id number] Use as directed. Brand per Insurance. [facility] ipratropium 0.02 % nebulizer solution 01-26 00:00: 00 Yes [id number] .5mg Inhale 2.5 mL every 4 (four) hours as needed for Wheezing, Shortness of Breath, Chest tightness or Bronchospa sm. [facility] 2.5 mg /3 mL (0.083 %) nebulizer solution 01-26 00:00: 00 Yes [id number] 2.5mg Inhale 3 mL every 4 (four) hours as needed for Wheezing, Shortness of Breath, Bronchospa sm or Chest tightness. [facility] Nebulizer Accessories Kit 01-26 00:00: 00 Yes [id number] Use as directed. Brand per Insurance. [facility] ipratropium 0.02 % nebulizer solution 01-26 00:00: 00 Yes [id number] .5mg Inhale 2.5 mL every 4 (four) hours as needed for Wheezing, Shortness of Breath, Chest tightness or Bronchospa sm. [facility] albuterol 2.5 mg /3 mL (0.083 %) nebulizer solution 01-26 00:00: 00 Yes [id number] 2.5mg Inhale 3 mL every 4 (four) hours as needed for Wheezing, Shortness of Breath, Bronchospa sm or Chest tightness. [facility] Nebulizer Accessories Kit 01-26 00:00: 00 Yes [id number] Use as directed. Brand per Insurance. [facility] ipratropium 0.02 % nebulizer solution 01-26 00:00: 00 Yes [id number] .5mg Inhale 2.5 mL every 4 (four) hours as needed for Wheezing, Shortness of Breath, Chest tightness or Bronchospa sm. [facility]erol 2.5 mg /3 mL (0.083 %) nebulizer solution 01-26 00:00: 00 Yes [id number] 2.5mg Inhale 3 mL every 4 (four) hours as needed for Wheezing, Shortness of Breath, Bronchospa sm or Chest tightness. [facility] Nebulizer Accessories Kit 01-26 00:00: 00 Yes [id number] Use as directed. Brand per Insurance. [facility] ipratropium 0.02 % nebulizer solution 01-26 00:00: 00 Yes [id number] .5mg Inhale 2.5 mL every 4 (four) hours as needed for Wheezing, Shortness of Breath, Chest tightness or Bronchospa sm. [facility] albuterol 2.5 mg /3 mL (0.083 %) nebulizer solution 01-26 00:00: 00 Yes [id number] 2.5mg Inhale 3 mL every 4 (four) hours as needed for Wheezing, Shortness of Breath, Bronchospa sm or Chest tightness. [facility] Nebulizer Accessories Kit 01-26 00:00: 00 Yes [id number] Use as directed. Brand per Insurance. [facility] ipratropium 0.02 % nebulizer solution 01-26 00:00: 00 Yes [id number] .5mg Inhale 2.5 mL every 4 (four) hours as needed for Wheezing, Shortness of Breath, Chest tightness or Bronchospa sm. [facility] albuterol 2.5 mg /3 mL (0.083 %) nebulizer solution 01-26 00:00: 00 Yes [id number] 2.5mg Inhale 3 mL every 4 (four) hours as needed for Wheezing, Shortness of Breath, Bronchospa sm or Chest tightness. [facility] Nebulizer Accessories Kit 01-26 00:00: 00 Yes [id number] Use as directed. Brand per Insurance. [facility] ipratropium 0.02 % nebulizer solution 01-26 00:00: 00 Yes [id number] .5mg Inhale 2.5 mL every 4 (four) hours as needed for Wheezing, Shortness of Breath, Chest tightness or Bronchospa sm. [facility] albuterol 2.5 mg /3 mL (0.083 %) nebulizer solution 01-26 00:00: 00 Yes [id number] 2.5mg Inhale 3 mL every 4 (four) hours as needed for Wheezing, Shortness of Breath, Bronchospa sm or Chest tightness. [facility] Nebulizer Accessories Kit 01-26 00:00: 00 Yes [id number] Use as directed. Brand per Insurance. [facility] Nebulizer Accessories Kit 01-26 00:00: 00 Yes [id number] Use as directed. Brand per Insurance. [facility] ipratropium 0.02 % nebulizer solution 01-26 00:00: 00 07-28 00:00 :00 No [id number] .5mg Inhale 2.5 mL every 4 (four) hours as needed for Wheezing, Shortness of Breath, Chest tightness or Bronchospa sm. [facility] albuterol 2.5 mg /3 mL (0.083 %) nebulizer solution 01-26 00:00: 00 07-28 00:00 :00 No [id number] 2.5mg Inhale 3 mL every 4 (four) hours as needed for Wheezing, Shortness of Breath, Bronchospa sm or Chest tightness. [facility] ipratropium 0.02 % nebulizer solution 01-26 00:00: 00 07-28 00:00 :00 No [id number] .5mg Inhale 2.5 mL every 4 (four) hours as needed for Wheezing, Shortness of Breath, Chest tightness or Bronchospa sm. [facility] albuterol 2.5 mg /3 mL (0.083 %) nebulizer solution 01-26 00:00: 00 07-28 00:00 :00 No [id number] 2.5mg Inhale 3 mL every 4 (four) hours as needed for Wheezing, Shortness of Breath, Bronchospa sm or Chest tightness. [facility] cephALEXin (KEFLEX) 500 mg capsule 01-26 00:00: 00 02-06 04:59 :00 No [id number] 500mg Take 1 capsule by mouth in the morning and 1 capsule at noon and 1 capsule in the evening. Do all this for 10 days. [facility] cephALEXin (KEFLEX) 500 mg capsule 2023-0 7-10 00:00: 00 02-06 04:59 :00 No [id number] 500mg Take 1 capsule by mouth in the morning and 1 capsule at noon and 1 capsule in the evening. Do all this for 10 days. [facility] cephALEXin (KEFLEX) 500 mg capsule 3-0 7-10 00:00: 00 02-06 04:59 :00 No [id number] 500mg Take 1 capsule by mouth in the morning and 1 capsule at noon and 1 capsule in the evening. Do all this for 10 days. [facility] cephALEXin (KEFLEX) 500 mg capsule 3-0 7-10 00:00: 00 02-06 04:59 :00 No [id number] 500mg Take 1 capsule by mouth in the morning and 1 capsule at noon and 1 capsule in the evening. Do all this for 10 days. [facility] cephALEXin (KEFLEX) 500 mg capsule 2022-0 7-10 00:00: 00 02-06 04:59 :00 No [id number] 500mg Take 1 capsule by mouth in the morning and 1 capsule at noon and 1 capsule in the evening. Do all this for 10 days. [facility] cephALEXin (KEFLEX) 500 mg capsule 3-0 7-10 00:00: 00 02-06 04:59 :00 No [id number] 500mg Take 1 capsule by mouth in the morning and 1 capsule at noon and 1 capsule in the evening. Do all this for 10 days. [facility] cephALEXin (KEFLEX) 500 mg capsule 3-0 7-10 00:00: 00 02-06 04:59 :00 No [id number] 500mg Take 1 capsule by mouth in the morning and 1 capsule at noon and 1 capsule in the evening. Do all this for 10 days. [facility] molnupiravi r 200 mg capsule 3-0 7-10 00:00: 00 02-04 00:00 :00 No [id number] 800mg Take 4 capsules by mouth every 12 (twelve) hours. [facility] molnupiravi r 200 mg capsule 01-26 00:00: 00 02-04 00:00 :00 No [id number] 800mg Take 4 capsules by mouth every 12 (twelve) hours. [facility] molnupiravi r 200 mg capsule 01-26 00:00: 00 02-04 00:00 :00 No [id number] 800mg Take 4 capsules by mouth every 12 (twelve) hours. [facility] benzonatate (TESSALON PERLES) capsule 200 mg 01-25 00:30: 00 01-25 00:34 :00 No 200mg 200 mg, Oral, ONCE, 1 dose, On 01/24/23 at 1930, [facility] acetaminoph en (TYLENOL) tablet 1,000 mg 01-25 00:30: 00 01-25 00:34 :00 No 1000mg 1,000 mg, Oral, ONCE, 1 dose, On 01/24/23 at 1930, [facility] benzonatate 200 mg capsule 01-24 00:00: 00 Yes [id number] 200mg Take 1 capsule by mouth 3 (three) times daily as needed for Cough for up to 20 doses. [facility] ondansetron 4 mg disintegrat ing tablet 01-24 00:00: 00 Yes [id number] 4mg Take 1 tablet by mouth every 8 (eight) hours as needed for Nausea and Vomiting (N/V). [facility] benzonatate 200 mg capsule 01-24 00:00: 00 Yes [id number] 200mg Take 1 capsule by mouth 3 (three) times daily as needed for Cough for up to 20 doses. [facility] ondansetron 4 mg disintegrat ing tablet 01-24 00:00: 00 Yes [id number] 4mg Take 1 tablet by mouth every 8 (eight) hours as needed for Nausea and Vomiting (N/V). [facility] benzonatate 200 mg capsule 01-24 00:00: 00 Yes [id number] 200mg Take 1 capsule by mouth 3 (three) times daily as needed for Cough for up to 20 doses. [facility] mg capsule 2023-0 7-08 00:00: 00 Yes [id number] 200mg Take 1 capsule by mouth 3 (three) times daily as needed for Cough for up to 20 doses. [facility] ben[facility] mg capsule 2023-0 7-08 00:00: 00 Yes [id number] 200mg Take 1 capsule by mouth 3 (three) times daily as needed for Cough for up to 20 doses. [facility] benzon[facility] 200 mg capsule 2023-0 7-08 00:00: 00 Yes [id number] 200mg Take 1 capsule by mouth 3 (three) times daily as needed for Cough for up to 20 doses. [facility] benzonatate 200 mg capsule 3-0 7- 00:00: 00 Yes [id number] 200mg Take 1 capsule by mouth 3 (three) times daily as needed for Cough for up to 20 doses. [facility] benzonatate 200 mg capsule 2023-0 7-08 00:00: 00 Yes [id number] 200mg Take 1 capsule by mouth 3 (three) times daily as needed for Cough for up to 20 doses. [facility] benzonatate 200 mg capsule 2023-0 7-08 00:00: 00 Yes [id number] 200mg Take 1 capsule by mouth 3 (three) times daily as needed for Cough for up to 20 doses. [facility] benzonatate 200 mg capsule 2023-0 7-08 00:00: 00 Yes [id number] 200mg Take 1 capsule by mouth 3 (three) times daily as needed for Cough for up to 20 doses. [facility] benzonatate 200 mg capsule 2023-0 7-08 00:00: 00 Yes [id number] 200mg Take 1 capsule by mouth 3 (three) times daily as needed for Cough for up to 20 doses. [facility] benzonatate 200 mg capsule 2023-0 7-08 00:00: 00 Yes [id number] 200mg Take 1 capsule by mouth 3 (three) times daily as needed for Cough for up to 20 doses. [facility] benzonatate 200 mg capsule 2023-0 7-08 00:00: 00 Yes [id number] 200mg Take 1 capsule by mouth 3 (three) times daily as needed for Cough for up to 20 doses. [facility] ben[facility] mg capsule 2023-0 7-08 00:00: 00 Yes [id number] 200mg Take 1 capsule by mouth 3 (three) times daily as needed for Cough for up to 20 doses. [facility] ben[facility] 200 mg capsule 2023-0 7-08 00:00: 00 Yes [id number] 200mg Take 1 capsule by mouth 3 (three) times daily as needed for Cough for up to 20 doses. [facility] benzonatate 200 mg capsule 3-0 7- 00:00: 00 Yes [id number] 200mg Take 1 capsule by mouth 3 (three) times daily as needed for Cough for up to 20 doses. [facility] benzonatate 200 mg capsule 3-0 7 00:00: 00 Yes [id number] 200mg Take 1 capsule by mouth 3 (three) times daily as needed for Cough for up to 20 doses. [facility] benzonatate 200 mg capsule 2023-0 7 00:00: 00 Yes [id number] 200mg Take 1 capsule by mouth 3 (three) times daily as needed for Cough for up to 20 doses. [facility] benzonatate 200 mg capsule 2023-0 7 00:00: 00 Yes [id number] 200mg Take 1 capsule by mouth 3 (three) times daily as needed for Cough for up to 20 doses. [facility] benzonatate 200 mg capsule 2023-0 7-08 00:00: 00 Yes [id number] 200mg Take 1 capsule by mouth 3 (three) times daily as needed for Cough for up to 20 doses. [facility] 2023-0 7-08 00:00: 00 Yes [id number] 200mg Take 1 capsule by mouth 3 (three) times daily as needed for Cough for up to 20 doses. [facility] benzonatate 200 mg capsule 2023-0 7-08 00:00: 00 Yes [id number] 200mg Take 1 capsule by mouth 3 (three) times daily as needed for Cough for up to 20 doses. [facility] benzonatate 200 mg capsule 0 08 00:00: 00 Yes [id number] 200mg Take 1 capsule by mouth 3 (three) times daily as needed for Cough for up to 20 doses. [facility] benzonatate 200 mg capsule 2022-0 01-24 00:00: 00 Yes [id number] 200mg Take 1 capsule by mouth 3 (three) times daily as needed for Cough for up to 20 doses. [facility] benzonatate 200 mg capsule 0 01-24 00:00: 00 07-28 00:00 :00 No [id number] 200mg Take 1 capsule by mouth 3 (three) times daily as needed for Cough for up to 20 doses. [facility] benzonatate 200 mg capsule 0 01-24 00:00: 00 07-28 00:00 :00 No [id number] 200mg Take 1 capsule by mouth 3 (three) times daily as needed for Cough for up to 20 doses. [facility] ondansetron 4 mg disintegrat ing tablet 01-24 00:00: 00 01-26 00:00 :00 No [id number] 4mg Take 1 tablet by mouth every 8 (eight) hours as needed for Nausea and Vomiting (N/V). [facility] ondansetron 4 mg disintegrat ing tablet 0 01-24 00:00: 00 01-26 00:00 :00 No [id number] 4mg Take 1 tablet by mouth every 8 (eight) hours as needed for Nausea and Vomiting (N/V). [facility] cyanocobala min (DODEX) injection 2,000 mcg 2022- 3-24 21:38: 00 02-11 21:44 :00 No [id number] 2000ug [facility] cyanocobala min (DODEX) injection 2,000 mcg 2022-0 3-24 21:38: 00 02-11 21:44 :00 No [id number] 2000ug 2,000 mcg, Intramuscu lar, MONTHLY, 4 doses, First dose on Thu10/10/22 at 1645, Last dose on Thu01/11/23 at 1645, Routine [facility] cyanocobala min (DODEX) injection 2,000 mcg 2023-0 3-24 21:38: 00 02-11 21:44 :00 No [id number] 2000ug [facility] cyanocobala min (DODEX) injection 2,000 mcg 2023-0 3-24 21:38: 00 02-11 21:44 :00 No [id number] 2000ug [facility] cyanocobala min (DODEX) injection 2,000 mcg 2023-0 3-24 21:38: 00 02-11 21:44 :00 No [id number] 2000ug [facility] cyanocobala min (DODEX) injection 2,000 mcg 2023-0 3-24 21:38: 00 02-11 21:44 :00 No [id number] 2000ug [facility] cyanocobala min (DODEX) injection 2,000 mcg 2023-0 3-24 21:38: 00 02-11 21:44 :00 No [id number] 2000ug [facility] cyanocobala min (DODEX) injection 2,000 mcg 2023-0 3-24 21:38: 00 02-11 21:44 :00 No [id number] 2000ug [facility] cyanocobala min (DODEX) injection 2,000 mcg 2023-0 3-24 21:38: 00 02-11 21:44 :00 No [id number] 2000ug [facility] cyanocobala min (DODEX) injection 2,000 mcg 2023-0 3-24 21:38: 00 02-11 21:44 :00 No [id number] 2000ug [facility] cyanocobala min (DODEX) injection 2,000 mcg 2023-0 3-24 21:38: 00 02-11 21:44 :00 No [id number] 2000ug [facility] cyanocobala min (DODEX) injection 2,000 mcg 2023-0 3-24 21:38: 00 02-11 21:44 :00 No [id number] 2000ug [facility] (DODEX) injection 2,000 mcg 2023-0 3-24 21:38: 00 02-11 21:44 :00 No [id number] 2000ug [facility] cyanocobala min (DODEX) injection 2,000 mcg 3-0 3-24 21:38: 00 01-26 21:17 :35 No [id number] 2000ug [facility] cyanocobala min (DODEX) injection 2,000 mcg 3-0 3-24 21:38: 00 01-26 21:17 :35 No [id number] 2000ug [facility] cephALEXin 500 mg capsule 2022-0 24 00:00: 00 10-18 04:59 :00 No [id number] 500mg Take 1 capsule by mouth in the morning and 1 capsule at noon and 1 capsule in the evening. Do all this for 7 days. [facility] cephALEXin 500 mg capsule 2022-0 324 00:00: 00 10-18 04:59 :00 No [id number] 500mg Take 1 capsule by mouth in the morning and 1 capsule at noon and 1 capsule in the evening. Do all this for 7 days. [facility] cephALEXin 500 mg capsule 2022-0 324 00:00: 00 10-18 04:59 :00 No [id number] 500mg Take 1 capsule by mouth in the morning and 1 capsule at noon and 1 capsule in the evening. Do all this for 7 days. [facility] fluconazole (DIFLUCAN) 200 mg tablet 2022-0 324 00:00: 00 10-11 04:59 :00 No [id number] 200mg Take 1 tablet by mouth once now for 1 dose. [facility] cyanocobala min (DODEX) injection 2,000 mcg 3-0 2-17 19:15: 00 09-05 20:59 :00 No [id number] 2000ug [facility] cyanocobala min (DODEX) injection 2,000 mcg 3-0 2-17 19:15: 00 09-05 20:59 :00 No [id number] 2000ug 2,000 mcg, Intramuscu lar, ONCE, 1 dose, On Thu09/05/22 at 1315, Routine [facility] cyanocobala min (DODEX) injection 2,000 mcg 3-0 2-17 19:15: 00 09-05 20:59 :00 No [id number] 2000ug [facility]oc[facility]a [facility] (DODEX) injection 2,000 mcg 3-0 2-17 19:15: 00 09-05 20:59 :00 No [id number] 2000ug 2,000 mcg, Intramuscu lar, ONCE, 1 dose, On Thu09/05/22 at 1315, Routine [facility] cefdinir 300 mg capsule 3-0 2-17 00:00: 00 Yes 300mg Take 1 capsule by mouth every 12 (twelve) hours. [facility] omeprazole 40 mg capsule 3-0 2-17 00:00: 00 Yes [id number] 40mg Take 1 capsule by mouth in the morning. [facility] cefdinir 300 mg capsule 2023-0 2-17 00:00: 00 Yes 300mg Take 1 capsule by mouth every 12 (twelve) hours. [facility] omeprazole 40 mg capsule 2023-0 2-17 00:00: 00 Yes [id number] 40mg Take 1 capsule by mouth in the morning. [facility] cefdinir 300 mg capsule 2023-0 2-17 00:00: 00 Yes 300mg Take 1 capsule by mouth every 12 (twelve) hours. [facility] omeprazole 40 mg capsule 2023-0 2-17 00:00: 00 Yes [id number] 40mg Take 1 capsule by mouth in the morning. [facility] cefdinir 300 mg capsule 2023-0 2-17 00:00: 00 Yes 300mg Take 1 capsule by mouth every 12 (twelve) hours. [facility] omeprazole 40 mg capsule 2023-0 2-17 00:00: 00 Yes [id number] 40mg Take 1 capsule by mouth in the morning. [facility] omeprazole 40 mg capsule 3-0 2-17 00:00: 00 Yes [id number] 40mg Take 1 capsule by mouth in the morning. [facility] omeprazole 40 mg capsule 3-0 2-17 00:00: 00 Yes [id number] 40mg Take 1 capsule by mouth in the morning. [facility] omeprazole 40 mg capsule 3-0 2-17 00:00: 00 Yes [id number] 40mg Take 1 capsule by mouth in the morning. [facility] omeprazole 40 mg capsule 3-0 2-17 00:00: 00 Yes [id number] 40mg Take 1 capsule by mouth in the morning. [facility] omeprazole 40 mg capsule 3-0 2-17 00:00: 00 Yes [id number] 40mg Take 1 capsule by mouth in the morning. [facility] omeprazole 40 mg capsule 3-0 2-17 00:00: 00 Yes [id number] 40mg Take 1 capsule by mouth in the morning. [facility] omeprazole 40 mg capsule 3-0 2-17 00:00: 00 Yes [id number] 40mg Take 1 capsule by mouth in the morning. [facility] omeprazole 40 mg capsule 3-0 2-17 00:00: 00 Yes [id number] 40mg Take 1 capsule by mouth in the morning. [facility] omeprazole 40 mg capsule 3-0 2-17 00:00: 00 Yes [id number] 40mg Take 1 capsule by mouth in the morning. [facility] omeprazole 40 mg capsule 3-0 2-17 00:00: 00 Yes [id number] 40mg Take 1 capsule by mouth in the morning. [facility] omeprazole 40 mg capsule 3-0 2-17 00:00: 00 Yes [id number] 40mg Take 1 capsule by mouth in the morning. [facility] omeprazole 40 mg capsule 3-0 2-17 00:00: 00 Yes [id number] 40mg Take 1 capsule by mouth in the morning. [facility]0 2-17 00:00: 00 Yes [id number] 40mg Take 1 capsule by mouth in the morning. [facility] 3-0 2-17 00:00: 00 Yes [id number] 40mg Take 1 capsule by mouth in the morning. [facility] 3-0 2-17 00:00: 00 Yes [id number] 40mg Take 1 capsule by mouth in the morning. [facility] 3-0 2-17 00:00: 00 Yes [id number] 40mg Take 1 capsule by mouth in the morning. [facility] omeprazole 40 mg capsule 3-0 2-17 00:00: 00 Yes [id number] 40mg Take 1 capsule by mouth in the morning. [facility] omeprazole 40 mg capsule 3-0 2-17 00:00: 00 Yes [id number] 40mg Take 1 capsule by mouth in the morning. [facility] omeprazole 40 mg capsule 3-0 2-17 00:00: 00 Yes [id number] 40mg Take 1 capsule by mouth in the morning. [facility] omeprazole 40 mg capsule 3-0 2-17 00:00: 00 Yes [id number] 40mg Take 1 capsule by mouth in the morning. [facility] omeprazole 40 mg capsule 3-0 2-17 00:00: 00 Yes [id number] 40mg Take 1 capsule by mouth in the morning. [facility] omeprazole 40 mg capsule 3-0 2-17 00:00: 00 Yes [id number] 40mg Take 1 capsule by mouth in the morning. [facility] omeprazole 40 mg capsule 3-0 2-17 00:00: 00 Yes [id number] 40mg Take 1 capsule by mouth in the morning. [facility] 2023-0 2-17 00:00: 00 Yes [id number] 40mg Take 1 capsule by mouth in the morning. [facility] omeprazole 40 mg capsule 2023-0 2-17 00:00: 00 Yes [id number] 40mg Take 1 capsule by mouth in the morning. [facility] omeprazole 40 mg capsule 2022-0 2-17 00:00: 00 Yes [id number] 40mg Take 1 capsule by mouth in the morning. [facility] omeprazole 40 mg capsule 2022-0 2-17 00:00: 00 Yes [id number] 40mg Take 1 capsule by mouth in the morning. [facility] omeprazole 40 mg capsule 2022-0 2-17 00:00: 00 Yes [id number] 40mg Take 1 capsule by mouth in the morning. [facility] omeprazole 40 mg capsule 2022-0 2-17 00:00: 00 Yes [id number] 40mg Take 1 capsule by mouth in the morning. [facility] omeprazole 40 mg capsule 2022-0 2-17 00:00: 00 Yes [id number] 40mg Take 1 capsule by mouth in the morning. [facility] omeprazole 40 mg capsule 2022-0 2-17 00:00: 00 Yes [id number] 40mg Take 1 capsule by mouth in the morning. [facility] omeprazole 40 mg capsule 2022-0 2-17 00:00: 00 Yes [id number] 40mg Take 1 capsule by mouth in the morning. [facility] omeprazole 40 mg capsule 2022-0 2-17 00:00: 00 Yes [id number] 40mg Take 1 capsule by mouth in the morning. [facility] omeprazole 40 mg capsule 2022-0 2-17 00:00: 00 Yes [id number] 40mg Take 1 capsule by mouth in the morning. [facility] omeprazole 40 mg capsule 2022-0 2-17 00:00: 00 Yes [id number] 40mg Take 1 capsule by mouth in the morning. [facility] cefdinir 300 mg capsule 2022-0 2-17 00:00: 00 10-10 00:00 :00 No 300mg Take 1 capsule by mouth every 12 (twelve) hours. [facility] atorvastati n 40 mg tablet 2022-0 1-23 00:00: 00 Yes [id number] 20mg Take 0.5 tablets by mouth at bedtime. [facility] valsartan 40 mg tablet 2022-0 08-11 00:00: 00 Yes [id number] 40mg Take 1 tablet by mouth in the morning and 1 tablet in the evening. [facility] atorvastati n 40 mg tablet 2022-0 08-11 00:00: 00 Yes [id number] 20mg Take 0.5 tablets by mouth at bedtime. [facility] valsartan 40 mg tablet 2022-0 08-11 00:00: 00 Yes [id number] 40mg Take 1 tablet by mouth in the morning and 1 tablet in the evening. [facility] atorvastati n 40 mg tablet 2022-0 08-11 00:00: 00 Yes [id number] 20mg Take 0.5 tablets by mouth at bedtime. [facility] valsartan 40 mg tablet 2022-0 08-11 00:00: 00 Yes [id number] 40mg Take 1 tablet by mouth in the morning and 1 tablet in the evening. [facility] valsartan 40 mg tablet 3-0 08-11 00:00: 00 Yes [id number] 40mg Take 1 tablet by mouth in the morning and 1 tablet in the evening. [facility] atorvastati n 40 mg tablet 2022-0 08-11 00:00: 00 Yes [id number] 20mg Take 0.5 tablets by mouth at bedtime. [facility] valsartan 40 mg tablet 2022-0 08-11 00:00: 00 Yes [id number] 40mg Take 1 tablet by mouth in the morning and 1 tablet in the evening. [facility] atorvastati n 40 mg tablet 3-0 08-11 00:00: 00 Yes [id number] 20mg Take 0.5 tablets by mouth at bedtime. [facility] valsartan 40 mg tablet 3-0 08-11 00:00: 00 Yes [id number] 40mg Take 1 tablet by mouth in the morning and 1 tablet in the evening. [facility] atorvastati n 40 mg tablet 2022-0 08-11 00:00: 00 Yes [id number] 20mg Take 0.5 tablets by mouth at bedtime. [facility] valsartan 40 mg tablet 2022-0 08-11 00:00: 00 Yes [id number] 40mg Take 1 tablet by mouth in the morning and 1 tablet in the evening. [facility] atorvastati n 40 mg tablet 2022-0 08-11 00:00: 00 Yes [id number] 20mg Take 0.5 tablets by mouth at bedtime. [facility] valsartan 40 mg tablet 2022-0 08-11 00:00: 00 Yes [id number] 40mg Take 1 tablet by mouth in the morning and 1 tablet in the evening. [facility] atorvastati n 40 mg tablet 2022-0 08-11 00:00: 00 Yes [id number] 20mg Take 0.5 tablets by mouth at bedtime. [facility] valsartan 40 mg tablet 2022-0 08-11 00:00: 00 Yes [id number] 40mg Take 1 tablet by mouth in the morning and 1 tablet in the evening. [facility] atorvastati n 40 mg tablet 2022-0 08-11 00:00: 00 Yes [id number] 20mg Take 0.5 tablets by mouth at bedtime. [facility] valsartan 40 mg tablet 2022-0 08-11 00:00: 00 Yes [id number] 40mg Take 1 tablet by mouth in the morning and 1 tablet in the evening. [facility] atorvastati n 40 mg tablet 2022-0 08-11 00:00: 00 Yes [id number] 20mg Take 0.5 tablets by mouth at bedtime. [facility] valsartan 40 mg tablet 2022-0 08-11 00:00: 00 Yes [id number] 40mg Take 1 tablet by mouth in the morning and 1 tablet in the evening. [facility] atorvastati n 40 mg tablet 2022-0 08-11 00:00: 00 Yes [id number] 20mg Take 0.5 tablets by mouth at bedtime. [facility] valsartan 40 mg tablet 2022-0 08-11 00:00: 00 Yes [id number] 40mg Take 1 tablet by mouth in the morning and 1 tablet in the evening. [facility] atorvastati n 40 mg tablet 2022-0 08-11 00:00: 00 Yes [id number] 20mg Take 0.5 tablets by mouth at bedtime. [facility] valsartan 40 mg tablet 2022-0 08-11 00:00: 00 Yes [id number] 40mg Take 1 tablet by mouth in the morning and 1 tablet in the evening. [facility] atorvastati n 40 mg tablet 2022-0 08-11 00:00: 00 Yes [id number] 20mg Take 0.5 tablets by mouth at bedtime. [facility] valsartan 40 mg tablet 2022-0 08-11 00:00: 00 Yes [id number] 40mg Take 1 tablet by mouth in the morning and 1 tablet in the evening. [facility] atorvastati n 40 mg tablet 2022-0 08-11 00:00: 00 Yes [id number] 20mg Take 0.5 tablets by mouth at bedtime. [facility] valsartan 40 mg tablet 2022-0 08-11 00:00: 00 Yes [id number] 40mg Take 1 tablet by mouth in the morning and 1 tablet in the evening. [facility] atorvastati n 40 mg tablet 2022-0 08-11 00:00: 00 Yes [id number] 20mg Take 0.5 tablets by mouth at bedtime. [facility] valsartan 40 mg tablet 2022-0 08-11 00:00: 00 Yes [id number] 40mg Take 1 tablet by mouth in the morning and 1 tablet in the evening. [facility] atorvastati n 40 mg tablet 2022-0 08-11 00:00: 00 Yes [id number] 20mg Take 0.5 tablets by mouth at bedtime. [facility] valsartan 40 mg tablet 2022-0 08-11 00:00: 00 Yes [id number] 40mg Take 1 tablet by mouth in the morning and 1 tablet in the evening. [facility] atorvastati n 40 mg tablet 2022-0 08-11 00:00: 00 Yes [id number] 20mg Take 0.5 tablets by mouth at bedtime. [facility] valsartan 40 mg tablet 2022-0 08-11 00:00: 00 Yes [id number] 40mg Take 1 tablet by mouth in the morning and 1 tablet in the evening. [facility] atorvastati n 40 mg tablet 2022-0 08-11 00:00: 00 Yes [id number] 20mg Take 0.5 tablets by mouth at bedtime. [facility] valsartan 40 mg tablet 2022-0 08-11 00:00: 00 Yes [id number] 40mg Take 1 tablet by mouth in the morning and 1 tablet in the evening. [facility] atorvastati n 40 mg tablet 2022-0 08-11 00:00: 00 Yes [id number] 20mg Take 0.5 tablets by mouth at bedtime. [facility] valsartan 40 mg tablet 2022-0 08-11 00:00: 00 Yes [id number] 40mg Take 1 tablet by mouth in the morning and 1 tablet in the evening. [facility] atorvastati n 40 mg tablet 2022-0 08-11 00:00: 00 Yes [id number] 20mg Take 0.5 tablets by mouth at bedtime. [facility] valsartan 40 mg tablet 3-0 08-11 00:00: 00 Yes [id number] 40mg Take 1 tablet by mouth in the morning and 1 tablet in the evening. [facility] atorvastati n 40 mg tablet 2022-0 08-11 00:00: 00 Yes [id number] 20mg Take 0.5 tablets by mouth at bedtime. [facility] valsartan 40 mg tablet 3-0 08-11 00:00: 00 Yes [id number] 40mg Take 1 tablet by mouth in the morning and 1 tablet in the evening. [facility] atorvastati n 40 mg tablet 3-0 08-11 00:00: 00 Yes [id number] 20mg Take 0.5 tablets by mouth at bedtime. [facility] valsartan 40 mg tablet 08-11 00:00: 00 Yes [id number] 40mg Take 1 tablet by mouth in the morning and 1 tablet in the evening. [facility] atorvastati n 40 mg tablet 08-11 00:00: 00 Yes [id number] 20mg Take 0.5 tablets by mouth at bedtime. [facility] valsartan 40 mg tablet 08-11 00:00: 00 Yes [id number] 40mg Take 1 tablet by mouth in the morning and 1 tablet in the evening. [facility] atorvastati n 40 mg tablet 08-11 00:00: 00 Yes [id number] 20mg Take 0.5 tablets by mouth at bedtime. [facility] valsartan 40 mg tablet 08-11 00:00: 00 Yes [id number] 40mg Take 1 tablet by mouth in the morning and 1 tablet in the evening. [facility] valsartan 40 mg tablet 08-11 00:00: 00 02-17 00:00 :00 No [id number] 40mg Take 1 tablet by mouth in the morning and 1 tablet in the evening. [facility] atorvastati n 40 mg tablet 08-11 00:00: 00 02-17 00:00 :00 No [id number] 20mg Take 0.5 tablets by mouth at bedtime. [facility] valsartan 40 mg tablet 08-11 00:00: 00 02-17 00:00 :00 No [id number] 40mg Take 1 tablet by mouth in the morning and 1 tablet in the evening. [facility] atorvastati n 40 mg tablet 08-11 00:00: 00 02-17 00:00 :00 No [id number] 20mg Take 0.5 tablets by mouth at bedtime. [facility] cyanocobala min (DODEX) injection 2,000 mcg 07-23 18:30: 00 07-23 17:47 :00 No [id number] 2000ug [facility] cyanocobala min (DODEX) injection 2,000 mcg 07-23 18:30: 00 07-23 17:47 :00 No [id number] 2000ug 2,000 mcg, Intramuscu lar, ONCE, 1 dose, On Thu07/23/22 at 1230, Routine [facility] cyanocobala min (DODEX) injection 2,000 mcg 07-23 18:30: 00 07-23 17:47 :00 No [id number] 2000ug [facility] cyanocobala min (DODEX) injection 2,000 mcg 07-23 18:30: 00 07-23 17:47 :00 No [id number] 2000ug 2,000 mcg, Intramuscu lar, ONCE, 1 dose, On Thu07/23/22 at 1230, Routine [facility] berberine/h erbal complex no.18 (BERBERINE- HERBAL COMB NO.18 ORAL) 07-23 10:37: 07 Yes Take by mouth. [facility] berberine/h erbal complex no.18 (BERBERINE- HERBAL COMB NO.18 ORAL) 07-23 10:37: 07 Yes Take by mouth. [facility] berberine/h erbal complex no.18 (BERBERINE- HERBAL COMB NO.18 ORAL) 07-23 10:37: 07 Yes Take by mouth. [facility] berberine/h erbal complex no.18 (BERBERINE- HERBAL COMB NO.18 ORAL) 07-23 10:37: 07 Yes Take by mouth. [facility] berberine/h erbal complex no.18 (BERBERINE- HERBAL COMB NO.18 ORAL) 07-23 10:37: 07 Yes Take by mouth. [facility] berberine/h erbal complex no.18 (BERBERINE- HERBAL COMB NO.18 ORAL) 07-23 10:37: 07 Yes Take by mouth. [facility] berberine/h erbal complex no.18 (BERBERINE- HERBAL COMB NO.18 ORAL) 07-23 10:37: 07 Yes Take by mouth. [facility] berberine/h erbal complex no.18 (BERBERINE- HERBAL COMB NO.18 ORAL) 07-23 10:37: 07 Yes Take by mouth. [facility] berberine/h erbal complex no.18 (BERBERINE- HERBAL COMB NO.18 ORAL) 07-23 10:37: 07 Yes Take by mouth. [facility] berberine/h erbal complex no.18 (BERBERINE- HERBAL COMB NO.18 ORAL) 07-23 10:37: 07 Yes Take by mouth. [facility] berberine/h erbal complex no.18 (BERBERINE- HERBAL COMB NO.18 ORAL) 07-23 10:37: 07 Yes Take by mouth. [facility] berberine/h erbal complex no.18 (BERBERINE- HERBAL COMB NO.18 ORAL) 07-23 10:37: 07 Yes Take by mouth. [facility] berberine/h erbal complex no.18 (BERBERINE- HERBAL COMB NO.18 ORAL) 07-23 10:37: 07 Yes Take by mouth. [facility] berberine/h erbal complex no.18 (BERBERINE- HERBAL COMB NO.18 ORAL) 07-23 10:37: 07 Yes Take by mouth. [facility] berberine/h erbal complex no.18 (BERBERINE- HERBAL COMB NO.18 ORAL) 07-23 10:37: 07 Yes Take by mouth. [facility] berberine/h erbal complex no.18 (BERBERINE- HERBAL COMB NO.18 ORAL) 07-23 10:37: 07 Yes Take by mouth. [facility] berberine/h erbal complex no.18 (BERBERINE- HERBAL COMB NO.18 ORAL) 07-23 10:37: 07 Yes Take by mouth. [facility] berberine/h erbal complex no.18 (BERBERINE- HERBAL COMB NO.18 ORAL) - 10:37: 07 Yes Take by mouth. [facility] berberine/h erbal complex no.18 (BERBERINE- HERBAL COMB NO.18 ORAL) 07-23 10:37: 07 Yes Take by mouth. [facility] berberine/h erbal complex no.18 (BERBERINE- HERBAL COMB NO.18 ORAL) 07-23 10:37: 07 Yes Take by mouth. [facility] berberine/h erbal complex no.18 (BERBERINE- HERBAL COMB NO.18 ORAL) 07-23 10:37: 07 Yes Take by mouth. [facility] berberine/h erbal complex no.18 (BERBERINE- HERBAL COMB NO.18 ORAL) 07-23 10:37: 07 Yes Take by mouth. [facility] berberine/h erbal complex no.18 (BERBERINE- HERBAL COMB NO.18 ORAL) 07-23 10:37: 07 Yes Take by mouth. [facility] berberine/h erbal complex no.18 (BERBERINE- HERBAL COMB NO.18 ORAL) 07-23 10:37: 07 Yes Take by mouth. [facility] berberine/h erbal complex no.18 (BERBERINE- HERBAL COMB NO.18 ORAL) 07-23 10:37: 07 Yes Take by mouth. [facility] berberine/h erbal complex no.18 (BERBERINE- HERBAL COMB NO.18 ORAL) 07-23 10:37: 07 Yes Take by mouth. [facility] berberine/h erbal complex no.18 (BERBERINE- HERBAL COMB NO.18 ORAL) 07-23 10:37: 07 Yes Take by mouth. [facility] berberine/h erbal complex no.18 (BERBERINE- HERBAL COMB NO.18 ORAL) 07-23 10:37: 07 Yes Take by mouth. [facility] berberine/h erbal complex no.18 (BERBERINE- HERBAL COMB NO.18 ORAL) - 10:37: 07 Yes Take by mouth. [facility] berberine/h erbal complex no.18 (BERBERINE- HERBAL COMB NO.18 ORAL) 07-23 10:37: 07 Yes Take by mouth. [facility] berberine/h erbal complex no.18 (BERBERINE- HERBAL COMB NO.18 ORAL) 07-23 10:37: 07 Yes Take by mouth. [facility] berberine/h erbal complex no.18 (BERBERINE- HERBAL COMB NO.18 ORAL) 07-23 10:37: 07 Yes Take by mouth. [facility] berberine/h erbal complex no.18 (BERBERINE- HERBAL COMB NO.18 ORAL) 07-23 10:37: 07 Yes Take by mouth. [facility] berberine/h erbal complex no.18 (BERBERINE- HERBAL COMB NO.18 ORAL) 07-23 10:37: 07 Yes Take by mouth. [facility] berberine/h erbal complex no.18 (BERBERINE- HERBAL COMB NO.18 ORAL) 07-23 10:37: 07 Yes Take by mouth. [facility] berberine/h erbal complex no.18 (BERBERINE- HERBAL COMB NO.18 ORAL) 07-23 10:37: 07 Yes Take by mouth. [facility] berberine/h erbal complex no.18 (BERBERINE- HERBAL COMB NO.18 ORAL) 07-23 10:37: 07 Yes Take by mouth. [facility] berberine/h erbal complex no.18 (BERBERINE- HERBAL COMB NO.18 ORAL) 07-23 10:37: 07 Yes Take by mouth. [facility] berberine/h erbal complex no.18 (BERBERINE- HERBAL COMB NO.18 ORAL) - 10:37: 07 Yes Take by mouth. [facility] berberine/h erbal complex no.18 (BERBERINE- HERBAL COMB NO.18 ORAL) 07-23 10:37: 07 Yes Take by mouth. [facility] berberine/h erbal complex no.18 (BERBERINE- HERBAL COMB NO.18 ORAL) 07-23 10:37: 07 Yes Take by mouth. [facility] berberine/h erbal complex no.18 (BERBERINE- HERBAL COMB NO.18 ORAL) 07-23 10:37: 07 Yes Take by mouth. [facility] berberine/h erbal complex no.18 (BERBERINE- HERBAL COMB NO.18 ORAL) 07-23 10:37: 07 Yes Take by mouth. [facility] berberine/h erbal complex no.18 (BERBERINE- HERBAL COMB NO.18 ORAL) 07-23 10:37: 07 Yes Take by mouth. [facility] semaglutide , weight loss, (WEGOVY) 1 mg/0.5 mL PnIj SC injection 07-23 00:00: 00 09-22 05:59 :00 No [id number] 1mg inject 1 mg under the skin weekly for 60 days. [facility] semaglutide , weight loss, (WEGOVY) 1 mg/0.5 mL PnIj SC injection 07-23 00:00: 00 09-22 05:59 :00 No [id number] 1mg inject 1 mg under the skin weekly for 60 days. [facility] semaglutide , weight loss, (WEGOVY) 1 mg/0.5 mL PnIj SC injection 07-23 00:00: 00 09-22 05:59 :00 No [id number] 1mg inject 1 mg under the skin weekly for 60 days. [facility] semaglutide , weight loss, (WEGOVY) 1 mg/0.5 mL PnIj SC injection 07-23 00:00: 00 09-22 05:59 :00 No [id number] 1mg inject 1 mg under the skin weekly for 60 days. [facility] semaglutide , weight loss, (WEGOVY) 1 mg/0.5 mL PnIj SC injection 1-04 00:00: 00 09-22 05:59 :00 No [id number] 1mg inject 1 mg under the skin weekly for 60 days. [facility] semaglutide , weight loss, (WEGOVY) 1 mg/0.5 mL PnIj SC injection 1- 00:00: 00 09-22 05:59 :00 No [id number] 1mg inject 1 mg under the skin weekly for 60 days. [facility] semaglutide , weight loss, (WEGOVY) 1 mg/0.5 mL PnIj SC injection - 00:00: 00 09-22 05:59 :00 No [id number] 1mg inject 1 mg under the skin weekly for 60 days. [facility] semaglutide , weight loss, (WEGOVY) 1 mg/0.5 mL PnIj SC injection - 00:00: 00 09-22 05:59 :00 No [id number] 1mg inject 1 mg under the skin weekly for 60 days. [facility] semaglutide , weight loss, (WEGOVY) 1 mg/0.5 mL PnIj SC injection - 00:00: 00 09-22 05:59 :00 No [id number] 1mg inject 1 mg under the skin weekly for 60 days. [facility] semaglutide , weight loss, (WEGOVY) 1 mg/0.5 mL PnIj SC injection 1- 00:00: 00 09-22 05:59 :00 No [id number] 1mg inject 1 mg under the skin weekly for 60 days. [facility] semaglutide , weight loss, (WEGOVY) 1 mg/0.5 mL PnIj SC injection 1-04 00:00: 00 09-22 05:59 :00 No [id number] 1mg inject 1 mg under the skin weekly for 60 days. [facility] semaglutide , weight loss, (WEGOVY) 1 mg/0.5 mL PnIj SC injection 1-04 00:00: 00 09-22 05:59 :00 No [id number] 1mg inject 1 mg under the skin weekly for 60 days. [facility] semaglutide , weight loss, (WEGOVY) 1 mg/0.5 mL PnIj SC injection 1- 00:00: 00 09-22 05:59 :00 No [id number] 1mg inject 1 mg under the skin weekly for 60 days. [facility] semaglutide , weight loss, (WEGOVY) 1 mg/0.5 mL PnIj SC injection - 00:00: 00 09-22 05:59 :00 No [id number] 1mg inject 1 mg under the skin weekly for 60 days. [facility] semaglutide , weight loss, (WEGOVY) 1 mg/0.5 mL PnIj SC injection - 00:00: 00 09-22 05:59 :00 No [id number] 1mg inject 1 mg under the skin weekly for 60 days. [facility] semaglutide , weight loss, (WEGOVY) 1 mg/0.5 mL PnIj SC injection - 00:00: 00 09-22 05:59 :00 No [id number] 1mg inject 1 mg under the skin weekly for 60 days. [facility] semaglutide , weight loss, (WEGOVY) 1 mg/0.5 mL PnIj SC injection 1-04 00:00: 00 09-22 05:59 :00 No [id number] 1mg inject 1 mg under the skin weekly for 60 days. [facility] semaglutide , weight loss, (WEGOVY) 1 mg/0.5 mL PnIj SC injection 1-04 00:00: 00 09-22 05:59 :00 No [id number] 1mg inject 1 mg under the skin weekly for 60 days. [facility] semaglutide , weight loss, (WEGOVY) 1 mg/0.5 mL PnIj SC injection 07-23 00:00: 00 09-05 00:00 :00 No [id number] 1mg inject 1 mg under the skin weekly for 60 days. [facility] semaglutide , weight loss, (WEGOVY) 1 mg/0.5 mL PnIj SC injection 07-23 00:00: 00 09-05 00:00 :00 No [id number] 1mg inject 1 mg under the skin weekly for 60 days. [facility] acetaminoph en (TYLENOL ARTHRITIS PAIN) 650 mg CR tablet 2021-07 00:00: 00 Yes [id number] 650mg Take 1 tablet by mouth every 8 (eight) hours as needed for Pain. [facility] ondansetron 4 mg disintegrat ing tablet 2021-07 00:00: 00 Yes [id number] 4mg Take 1 tablet by mouth every 8 (eight) hours as needed for Nausea and Vomiting (N/V). [facility] acetaminoph en (TYLENOL ARTHRITIS PAIN) 650 mg CR tablet 2021-07 00:00: 00 Yes [id number] 650mg Take 1 tablet by mouth every 8 (eight) hours as needed for Pain. [facility] acetaminoph en (TYLENOL ARTHRITIS PAIN) 650 mg CR tablet 2021-07 00:00: 00 Yes [id number] 650mg Take 1 tablet by mouth every 8 (eight) hours as needed for Pain. [facility] ondansetron 4 mg disintegrat ing tablet 2021-07 00:00: 00 Yes [id number] 4mg Take 1 tablet by mouth every 8 (eight) hours as needed for Nausea and Vomiting (N/V). [facility] acetaminoph en (TYLENOL ARTHRITIS PAIN) 650 mg CR tablet 2021-07 00:00: 00 Yes [id number] 650mg Take 1 tablet by mouth every 8 (eight) hours as needed for Pain. [facility] ondansetron 4 mg disintegrat ing tablet 2021-07 00:00: 00 Yes [id number] 4mg Take 1 tablet by mouth every 8 (eight) hours as needed for Nausea and Vomiting (N/V). [facility] acetaminoph en (TYLENOL ARTHRITIS PAIN) 650 mg CR tablet 2021-07 00:00: 00 Yes [id number] 650mg Take 1 tablet by mouth every 8 (eight) hours as needed for Pain. [facility] ondansetron 4 mg disintegrat ing tablet 2021-07 00:00: 00 Yes [id number] 4mg Take 1 tablet by mouth every 8 (eight) hours as needed for Nausea and Vomiting (N/V). [facility] acetaminoph en (TYLENOL ARTHRITIS PAIN) 650 mg CR tablet 2021-07 00:00: 00 Yes [id number] 650mg Take 1 tablet by mouth every 8 (eight) hours as needed for Pain. [facility] ondansetron 4 mg disintegrat ing tablet 2021-07 00:00: 00 Yes [id number] 4mg Take 1 tablet by mouth every 8 (eight) hours as needed for Nausea and Vomiting (N/V). [facility] acetaminoph en (TYLENOL ARTHRITIS PAIN) 650 mg CR tablet 2021-07 00:00: 00 Yes [id number] 650mg Take 1 tablet by mouth every 8 (eight) hours as needed for Pain. [facility] ondansetron 4 mg disintegrat ing tablet 2021-07 00:00: 00 Yes [id number] 4mg Take 1 tablet by mouth every 8 (eight) hours as needed for Nausea and Vomiting (N/V). [facility] acetaminoph en (TYLENOL ARTHRITIS PAIN) 650 mg CR tablet 2021-07 00:00: 00 Yes [id number] 650mg Take 1 tablet by mouth every 8 (eight) hours as needed for Pain. [facility] ondansetron 4 mg disintegrat ing tablet 2021-07 00:00: 00 Yes [id number] 4mg Take 1 tablet by mouth every 8 (eight) hours as needed for Nausea and Vomiting (N/V). [facility] acetaminoph en (TYLENOL ARTHRITIS PAIN) 650 mg CR tablet 2021-07 00:00: 00 Yes [id number] 650mg Take 1 tablet by mouth every 8 (eight) hours as needed for Pain. [facility] ondansetron 4 mg disintegrat ing tablet 2021-07 00:00: 00 Yes [id number] 4mg Take 1 tablet by mouth every 8 (eight) hours as needed for Nausea and Vomiting (N/V). [facility] acetaminoph en (TYLENOL ARTHRITIS PAIN) 650 mg CR tablet 2021-07 00:00: 00 Yes [id number] 650mg Take 1 tablet by mouth every 8 (eight) hours as needed for Pain. [facility] ondansetron 4 mg disintegrat ing tablet 2021-07 00:00: 00 Yes [id number] 4mg Take 1 tablet by mouth every 8 (eight) hours as needed for Nausea and Vomiting (N/V). [facility] acetaminoph en (TYLENOL ARTHRITIS PAIN) 650 mg CR tablet 2021-07 00:00: 00 Yes [id number] 650mg Take 1 tablet by mouth every 8 (eight) hours as needed for Pain. [facility] ondansetron 4 mg disintegrat ing tablet 2021-07 00:00: 00 Yes [id number] 4mg Take 1 tablet by mouth every 8 (eight) hours as needed for Nausea and Vomiting (N/V). [facility] acetaminoph en (TYLENOL ARTHRITIS PAIN) 650 mg CR tablet 2021-07 00:00: 00 Yes [id number] 650mg Take 1 tablet by mouth every 8 (eight) hours as needed for Pain. [facility] ondansetron 4 mg disintegrat ing tablet 2021-07 00:00: 00 Yes [id number] 4mg Take 1 tablet by mouth every 8 (eight) hours as needed for Nausea and Vomiting (N/V). [facility] acetaminoph en (TYLENOL ARTHRITIS PAIN) 650 mg CR tablet 2021-07 00:00: 00 Yes [id number] 650mg Take 1 tablet by mouth every 8 (eight) hours as needed for Pain. [facility] ondansetron 4 mg disintegrat ing tablet 2021-07 00:00: 00 Yes [id number] 4mg Take 1 tablet by mouth every 8 (eight) hours as needed for Nausea and Vomiting (N/V). [facility] acetaminoph en (TYLENOL ARTHRITIS PAIN) 650 mg CR tablet 2021-07 00:00: 00 Yes [id number] 650mg Take 1 tablet by mouth every 8 (eight) hours as needed for Pain. [facility] acetaminoph en (TYLENOL ARTHRITIS PAIN) 650 mg CR tablet 2021-07 00:00: 00 Yes [id number] 650mg Take 1 tablet by mouth every 8 (eight) hours as needed for Pain. [facility] acetaminoph en (TYLENOL ARTHRITIS PAIN) 650 mg CR tablet 2021-07 00:00: 00 Yes [id number] 650mg Take 1 tablet by mouth every 8 (eight) hours as needed for Pain. [facility] acetaminoph en (TYLENOL ARTHRITIS PAIN) 650 mg CR tablet 2021-07 00:00: 00 Yes [id number] 650mg Take 1 tablet by mouth every 8 (eight) hours as needed for Pain. [facility] acetaminoph en (TYLENOL ARTHRITIS PAIN) 650 mg CR tablet 2021-07 00:00: 00 Yes [id number] 650mg Take 1 tablet by mouth every 8 (eight) hours as needed for Pain. [facility] acetaminoph en (TYLENOL ARTHRITIS PAIN) 650 mg CR tablet 2021-07 00:00: 00 Yes [id number] 650mg Take 1 tablet by mouth every 8 (eight) hours as needed for Pain. [facility] acetaminoph en (TYLENOL ARTHRITIS PAIN) 650 mg CR tablet 2021-07 00:00: 00 Yes [id number] 650mg Take 1 tablet by mouth every 8 (eight) hours as needed for Pain. [facility] acetaminoph en (TYLENOL ARTHRITIS PAIN) 650 mg CR tablet 2021-07 00:00: 00 Yes [id number] 650mg Take 1 tablet by mouth every 8 (eight) hours as needed for Pain. [facility] acetaminoph en (TYLENOL ARTHRITIS PAIN) 650 mg CR tablet 2021-07 00:00: 00 Yes [id number] 650mg Take 1 tablet by mouth every 8 (eight) hours as needed for Pain. [facility] acetaminoph en (TYLENOL ARTHRITIS PAIN) 650 mg CR tablet 2021-07 00:00: 00 Yes [id number] 650mg Take 1 tablet by mouth every 8 (eight) hours as needed for Pain. [facility] acetaminoph en (TYLENOL ARTHRITIS PAIN) 650 mg CR tablet 2021-07 00:00: 00 Yes [id number] 650mg Take 1 tablet by mouth every 8 (eight) hours as needed for Pain. [facility] acetaminoph en (TYLENOL ARTHRITIS PAIN) 650 mg CR tablet 2021-07 00:00: 00 Yes [id number] 650mg Take 1 tablet by mouth every 8 (eight) hours as needed for Pain. [facility] acetaminoph en (TYLENOL ARTHRITIS PAIN) 650 mg CR tablet 2021-07 00:00: 00 Yes [id number] 650mg Take 1 tablet by mouth every 8 (eight) hours as needed for Pain. [facility] acetaminoph en (TYLENOL ARTHRITIS PAIN) 650 mg CR tablet 2021-07 00:00: 00 Yes [id number] 650mg Take 1 tablet by mouth every 8 (eight) hours as needed for Pain. [facility] acetaminoph en (TYLENOL ARTHRITIS PAIN) 650 mg CR tablet 2021-07 00:00: 00 Yes [id number] 650mg Take 1 tablet by mouth every 8 (eight) hours as needed for Pain. [facility] acetaminoph en (TYLENOL ARTHRITIS PAIN) 650 mg CR tablet 2021-07 00:00: 00 Yes [id number] 650mg Take 1 tablet by mouth every 8 (eight) hours as needed for Pain. [facility] acetaminoph en (TYLENOL ARTHRITIS PAIN) 650 mg CR tablet 2021-07 00:00: 00 Yes [id number] 650mg Take 1 tablet by mouth every 8 (eight) hours as needed for Pain. [facility] acetaminoph en (TYLENOL ARTHRITIS PAIN) 650 mg CR tablet 2021-07 00:00: 00 Yes [id number] 650mg Take 1 tablet by mouth every 8 (eight) hours as needed for Pain. [facility] acetaminoph en (TYLENOL ARTHRITIS PAIN) 650 mg CR tablet 2021-07 00:00: 00 Yes [id number] 650mg Take 1 tablet by mouth every 8 (eight) hours as needed for Pain. [facility] acetaminoph en (TYLENOL ARTHRITIS PAIN) 650 mg CR tablet 2021-07 00:00: 00 Yes [id number] 650mg Take 1 tablet by mouth every 8 (eight) hours as needed for Pain. [facility] acetaminoph en (TYLENOL ARTHRITIS PAIN) 650 mg CR tablet 2021-07 00:00: 00 Yes [id number] 650mg Take 1 tablet by mouth every 8 (eight) hours as needed for Pain. [facility] acetaminoph en (TYLENOL ARTHRITIS PAIN) 650 mg CR tablet 2021-07 00:00: 00 Yes [id number] 650mg Take 1 tablet by mouth every 8 (eight) hours as needed for Pain. [facility] acetaminoph en (TYLENOL ARTHRITIS PAIN) 650 mg CR tablet 2021-07 00:00: 00 Yes [id number] 650mg Take 1 tablet by mouth every 8 (eight) hours as needed for Pain. [facility] acetaminoph en (TYLENOL ARTHRITIS PAIN) 650 mg CR tablet 2021-07 00:00: 00 Yes [id number] 650mg Take 1 tablet by mouth every 8 (eight) hours as needed for Pain. [facility] acetaminoph en (TYLENOL ARTHRITIS PAIN) 650 mg CR tablet 2021-07 00:00: 00 Yes [id number] 650mg Take 1 tablet by mouth every 8 (eight) hours as needed for Pain. [facility] acetaminoph en (TYLENOL ARTHRITIS PAIN) 650 mg CR tablet 2021-07 00:00: 00 Yes [id number] 650mg Take 1 tablet by mouth every 8 (eight) hours as needed for Pain. [facility] acetaminoph en (TYLENOL ARTHRITIS PAIN) 650 mg CR tablet 2021-07 00:00: 00 Yes [id number] 650mg Take 1 tablet by mouth every 8 (eight) hours as needed for Pain. [facility] acetaminoph en (TYLENOL ARTHRITIS PAIN) 650 mg CR tablet 2021-07 00:00: 00 Yes [id number] 650mg Take 1 tablet by mouth every 8 (eight) hours as needed for Pain. [facility] acetaminoph en (TYLENOL ARTHRITIS PAIN) 650 mg CR tablet 2021-07 00:00: 00 Yes [id number] 650mg Take 1 tablet by mouth every 8 (eight) hours as needed for Pain. [facility] acetaminoph en (TYLENOL ARTHRITIS PAIN) 650 mg CR tablet 2021-07 00:00: 00 Yes [id number] 650mg Take 1 tablet by mouth every 8 (eight) hours as needed for Pain. [facility] acetaminoph en (TYLENOL ARTHRITIS PAIN) 650 mg CR tablet 2021-07 00:00: 00 Yes [id number] 650mg Take 1 tablet by mouth every 8 (eight) hours as needed for Pain. [facility] acetaminoph en (TYLENOL ARTHRITIS PAIN) 650 mg CR tablet 2021-07 00:00: 00 Yes [id number] 650mg Take 1 tablet by mouth every 8 (eight) hours as needed for Pain. [facility] acetaminoph en (TYLENOL ARTHRITIS PAIN) 650 mg CR tablet 2021-07 00:00: 00 Yes [id number] 650mg Take 1 tablet by mouth every 8 (eight) hours as needed for Pain. [facility] acetaminoph en (TYLENOL ARTHRITIS PAIN) 650 mg CR tablet 2021-07 00:00: 00 Yes [id number] 650mg Take 1 tablet by mouth every 8 (eight) hours as needed for Pain. [facility] acetaminoph en (TYLENOL ARTHRITIS PAIN) 650 mg CR tablet 2021-07 00:00: 00 Yes [id number] 650mg Take 1 tablet by mouth every 8 (eight) hours as needed for Pain. [facility] ondansetron 4 mg disintegrat ing tablet 2021-07 00:00: 00 10-10 00:00 :00 No [id number] 4mg Take 1 tablet by mouth every 8 (eight) hours as needed for Nausea and Vomiting (N/V). [facility] amoxicillin -clavulanat e (AUGMENTIN) 875-125 mg per tablet 2021-07 00:00: 00 07-24 05:59 :00 No [id number] 1{tbl} Take 1 tablet by mouth in the morning and 1 tablet in the evening. Do all this for 7 days. [facility] amoxicillin -clavulanat e (AUGMENTIN) 875-125 mg per tablet 2021-07 00:00: 00 07-24 05:59 :00 No [id number] 1{tbl} Take 1 tablet by mouth in the morning and 1 tablet in the evening. Do all this for 7 days. [facility] amoxicillin -clavulanat e (AUGMENTIN) 875-125 mg per tablet 2021-07 00:00: 00 07-24 05:59 :00 No [id number] 1{tbl} Take 1 tablet by mouth in the morning and 1 tablet in the evening. Do all this for 7 days. [facility] amoxicillin -clavulanat e (AUGMENTIN) 875-125 mg per tablet 2021-07 00:00: 00 07-23 00:00 :00 No [id number] 1{tbl} Take 1 tablet by mouth in the morning and 1 tablet in the evening. Do all this for 7 days. [facility] amoxicillin -clavulanat e (AUGMENTIN) 875-125 mg per tablet 2021-07 00:00: 00 07-23 00:00 :00 No [id number] 1{tbl} Take 1 tablet by mouth in the morning and 1 tablet in the evening. Do all this for 7 days. [facility] semaglutide , weight loss, 0.5 mg/0.5 mL PnIj SC injection 2021-07 00:00: 00 07-24 05:59 :00 No [id number] .[id number] inject 0.5 mg under the skin weekly for 30 days. [facility] semaglutide , weight loss, 0.5 mg/0.5 mL PnIj SC injection 2021-07 00:00: 00 07-24 05:59 :00 No [id number] .[id number] inject 0.5 mg under the skin weekly for 30 days. [facility] semaglutide , weight loss, 0.5 mg/0.5 mL PnIj SC injection 2021-07 00:00: 00 07-24 05:59 :00 No [id number] .[id number] inject 0.5 mg under the skin weekly for 30 days. [facility] semaglutide , weight loss, 0.5 mg/0.5 mL PnIj SC injection 2021-07 00:00: 00 07-24 05:59 :00 No [id number] .[id number] inject 0.5 mg under the skin weekly for 30 days. [facility] semaglutide , weight loss, 0.5 mg/0.5 mL PnIj SC injection 2021-07 00:00: 00 07-24 05:59 :00 No [id number] .5mg inject 0.5 mg under the skin weekly for 30 days. [facility] semaglutide , weight loss, 0.5 mg/0.5 mL PnIj SC injection 2021-07 00:00: 00 07-24 05:59 :00 No [id number] .5mg inject 0.5 mg under the skin weekly for 30 days. [facility] semaglutide , weight loss, 0.5 mg/0.5 mL PnIj SC injection 2021-07 00:00: 00 07-24 05:59 :00 No [id number] .[id number] inject 0.5 mg under the skin weekly for 30 days. [facility] semaglutide , weight loss, 0.5 mg/0.5 mL PnIj SC injection 2021-07 00:00: 00 07-24 05:59 :00 No [id number] .[id number] inject 0.5 mg under the skin weekly for 30 days. [facility] semaglutide , weight loss, 0.5 mg/0.5 mL PnIj SC injection 2021-07 00:00: 00 07-24 05:59 :00 No [id number] .5mg inject 0.5 mg under the skin weekly for 30 days. [facility] semaglutide , weight loss, 0.5 mg/0.5 mL PnIj SC injection 2021-07 00:00: 00 07-24 05:59 :00 No [id number] .5mg inject 0.5 mg under the skin weekly for 30 days. [facility] semaglutide , weight loss, 0.5 mg/0.5 mL PnIj SC injection 2021-07 00:00: 00 07-24 05:59 :00 No [id number] .5mg inject 0.5 mg under the skin weekly for 30 days. [facility] semaglutide , weight loss, 0.5 mg/0.5 mL PnIj SC injection 2021-07 00:00: 00 07-24 05:59 :00 No [id number] .5mg inject 0.5 mg under the skin weekly for 30 days. [facility] semaglutide , weight loss, 0.5 mg/0.5 mL PnIj SC injection 2021-07 00:00: 00 07-24 05:59 :00 No [id number] .5mg inject 0.5 mg under the skin weekly for 30 days. [facility] semaglutide , weight loss, 0.5 mg/0.5 mL PnIj SC injection 2021-07 00:00: 00 07-24 05:59 :00 No [id number] .5mg inject 0.5 mg under the skin weekly for 30 days. [facility] semaglutide , weight loss, 0.5 mg/0.5 mL PnIj SC injection 2021-07 00:00: 00 07-24 05:59 :00 No [id number] .5mg inject 0.5 mg under the skin weekly for 30 days. [facility] cefdinir 300 mg capsule 2021-07- 00:00: 00 06-21 05:59 :00 No [id number] 300mg Take 1 capsule by mouth every 12 (twelve) hours for 10 days. [facility] cefdinir 300 mg capsule 2021-07 00:00: 00 06-21 05:59 :00 No [id number] 300mg Take 1 capsule by mouth every 12 (twelve) hours for 10 days. [facility] azithromyci n 250 mg tablet 2021-07 00:00: 00 Yes [id number] 250mg Z-Victoriano = 500 mg day 1, then 250 mg days 2 to 5. [facility] albuterol 90 mcg/actuati on inhaler 2021-07 00:00: 00 Yes [id number] 2{puff} Inhale 2 Puffs every 6 (six) hours as needed for Wheezing or Shortness of Breath. [facility] benzonatate (TESSALON PERLES) 100 mg capsule 2021-07 00:00: 00 Yes [id number] 100mg Take 1 capsule by mouth every 8 (eight) hours as needed for Cough. [facility] azithromyci n 250 mg tablet 2021-07 00:00: 00 Yes [id number] 250mg Z-Victoriano = 500 mg day 1, then 250 mg days 2 to 5. [facility] albuterol 90 mcg/actuati on inhaler 2021-07 00:00: 00 Yes [id number] 2{puff} Inhale 2 Puffs every 6 (six) hours as needed for Wheezing or Shortness of Breath. [facility] benzonatate (TESSALON PERLES) 100 mg capsule 2021-07 00:00: 00 Yes [id number] 100mg Take 1 capsule by mouth every 8 (eight) hours as needed for Cough. [facility] azithromyci n 250 mg tablet 2021-07 00:00: 00 Yes [id number] 250mg Z-Victoriano = 500 mg day 1, then 250 mg days 2 to 5. [facility] albuterol 90 mcg/actuati on inhaler 2021-07 00:00: 00 Yes [id number] 2{puff} Inhale 2 Puffs every 6 (six) hours as needed for Wheezing or Shortness of Breath. [facility]TESSALON PERLES[facility] 100 mg capsule 2021-07 00:00: 00 Yes [id number] 100mg Take 1 capsule by mouth every 8 (eight) hours as needed for Cough. [facility] azithromyci n 250 mg tablet 2021-07 00:00: 00 Yes [id number] 250mg Z-Victoriano = 500 mg day 1, then 250 mg days 2 to 5. [facility]/actuati on inhaler 2021-07 00:00: 00 Yes [id number] 2{puff} Inhale 2 Puffs every 6 (six) hours as needed for Wheezing or Shortness of Breath. [facility] benzonatate (TESSALON PERLES) 100 mg capsule 2021-07 00:00: 00 Yes [id number] 100mg Take 1 capsule by mouth every 8 (eight) hours as needed for Cough. [facility] azithromyci n 250 mg tablet 2021-07 00:00: 00 Yes [id number] 250mg Z-Victoriano = 500 mg day 1, then 250 mg days 2 to 5. [facility] albuterol 90 mcg/actuati on inhaler 2021-07 00:00: 00 Yes [id number] 2{puff} Inhale 2 Puffs every 6 (six) hours as needed for Wheezing or Shortness of Breath. [facility] benzonatate (TESSALON PERLES) 100 mg capsule 2021-07 00:00: 00 Yes [id number] 100mg Take 1 capsule by mouth every 8 (eight) hours as needed for Cough. [facility] albuterol 90 mcg/actuati on inhaler 2021-07 00:00: 00 Yes [id number] 2{puff} Inhale 2 Puffs every 6 (six) hours as needed for Wheezing or Shortness of Breath. [facility] albuterol 90 mcg/actuati on inhaler 2021-07 00:00: 00 Yes [id number] 2{puff} Inhale 2 Puffs every 6 (six) hours as needed for Wheezing or Shortness of Breath. [facility] albuterol 90 mcg/actuati on inhaler 2021-07 00:00: 00 Yes [id number] 2{puff} Inhale 2 Puffs every 6 (six) hours as needed for Wheezing or Shortness of Breath. [facility] albuterol 90 mcg/actuati on inhaler 2021-07 00:00: 00 Yes [id number] 2{puff} Inhale 2 Puffs every 6 (six) hours as needed for Wheezing or Shortness of Breath. [facility] albuterol 90 mcg/actuati on inhaler 2021-07 00:00: 00 Yes [id number] 2{puff} Inhale 2 Puffs every 6 (six) hours as needed for Wheezing or Shortness of Breath. [facility] albuterol 90 mcg/actuati on inhaler 2021-07 00:00: 00 Yes [id number] 2{puff} Inhale 2 Puffs every 6 (six) hours as needed for Wheezing or Shortness of Breath. [facility] albuterol 90 mcg/actuati on inhaler 2021-07 00:00: 00 Yes [id number] 2{puff} Inhale 2 Puffs every 6 (six) hours as needed for Wheezing or Shortness of Breath. [facility] albuterol 90 mcg/actuati on inhaler 2021-07 00:00: 00 Yes [id number] 2{puff} Inhale 2 Puffs every 6 (six) hours as needed for Wheezing or Shortness of Breath. [facility] albuterol 90 mcg/actuati on inhaler 2021-07 00:00: 00 Yes [id number] 2{puff} Inhale 2 Puffs every 6 (six) hours as needed for Wheezing or Shortness of Breath. [facility] albuterol 90 mcg/actuati on inhaler 2021-07 00:00: 00 Yes [id number] 2{puff} Inhale 2 Puffs every 6 (six) hours as needed for Wheezing or Shortness of Breath. [facility] albuterol 90 mcg/actuati on inhaler 2021-07 00:00: 00 Yes [id number] 2{puff} Inhale 2 Puffs every 6 (six) hours as needed for Wheezing or Shortness of Breath. [facility] albuterol 90 mcg/actuati on inhaler 2021-07 00:00: 00 Yes [id number] 2{puff} Inhale 2 Puffs every 6 (six) hours as needed for Wheezing or Shortness of Breath. [facility] albuterol 90 mcg/actuati on inhaler 2021-07 00:00: 00 Yes [id number] 2{puff} Inhale 2 Puffs every 6 (six) hours as needed for Wheezing or Shortness of Breath. [facility] albuterol 90 mcg/actuati on inhaler 2021-07 00:00: 00 Yes [id number] 2{puff} Inhale 2 Puffs every 6 (six) hours as needed for Wheezing or Shortness of Breath. [facility] albuterol 90 mcg/actuati on inhaler 2021-07 00:00: 00 Yes [id number] 2{puff} Inhale 2 Puffs every 6 (six) hours as needed for Wheezing or Shortness of Breath. [facility] albuterol 90 mcg/actuati on inhaler 2021-07 00:00: 00 Yes [id number] 2{puff} Inhale 2 Puffs every 6 (six) hours as needed for Wheezing or Shortness of Breath. [facility] albuterol 90 mcg/actuati on inhaler 2021-07 00:00: 00 Yes [id number] 2{puff} Inhale 2 Puffs every 6 (six) hours as needed for Wheezing or Shortness of Breath. [facility] albuterol 90 mcg/actuati on inhaler 2021-07 00:00: 00 Yes [id number] 2{puff} Inhale 2 Puffs every 6 (six) hours as needed for Wheezing or Shortness of Breath. [facility] albuterol 90 mcg/actuati on inhaler 2021-07 00:00: 00 Yes [id number] 2{puff} Inhale 2 Puffs every 6 (six) hours as needed for Wheezing or Shortness of Breath. [facility] albuterol 90 mcg/actuati on inhaler 2021-07 00:00: 00 Yes [id number] 2{puff} Inhale 2 Puffs every 6 (six) hours as needed for Wheezing or Shortness of Breath. [facility] albuterol 90 mcg/actuati on inhaler 2021-07 00:00: 00 Yes [id number] 2{puff} Inhale 2 Puffs every 6 (six) hours as needed for Wheezing or Shortness of Breath. [facility] albuterol 90 mcg/actuati on inhaler 2021-07 00:00: 00 Yes [id number] 2{puff} Inhale 2 Puffs every 6 (six) hours as needed for Wheezing or Shortness of Breath. [facility] albuterol 90 mcg/actuati on inhaler 2021-07 00:00: 00 Yes [id number] 2{puff} Inhale 2 Puffs every 6 (six) hours as needed for Wheezing or Shortness of Breath. [facility] albuterol 90 mcg/actuati on inhaler 2021-07 00:00: 00 Yes [id number] 2{puff} Inhale 2 Puffs every 6 (six) hours as needed for Wheezing or Shortness of Breath. [facility] albuterol 90 mcg/actuati on inhaler 2021-07 00:00: 00 Yes [id number] 2{puff} Inhale 2 Puffs every 6 (six) hours as needed for Wheezing or Shortness of Breath. [facility] albuterol 90 mcg/actuati on inhaler 2021-07 00:00: 00 Yes [id number] 2{puff} Inhale 2 Puffs every 6 (six) hours as needed for Wheezing or Shortness of Breath. [facility] albuterol 90 mcg/actuati on inhaler 2021-07 00:00: 00 Yes [id number] 2{puff} Inhale 2 Puffs every 6 (six) hours as needed for Wheezing or Shortness of Breath. [facility] albuterol 90 mcg/actuati on inhaler 2021-07 00:00: 00 Yes [id number] 2{puff} Inhale 2 Puffs every 6 (six) hours as needed for Wheezing or Shortness of Breath. [facility] albuterol 90 mcg/actuati on inhaler 2021-07 00:00: 00 01-28 00:00 :00 No [id number] 2{puff} Inhale 2 Puffs every 6 (six) hours as needed for Wheezing or Shortness of Breath. [facility] albuterol 90 mcg/actuati on inhaler 2021-07 00:00: 00 01-28 00:00 :00 No [id number] 2{puff} Inhale 2 Puffs every 6 (six) hours as needed for Wheezing or Shortness of Breath. [facility] azithromyci n 250 mg tablet 2021-07 00:00: 00 07-16 00:00 :00 No [id number] 250mg Z-Victoriano = 500 mg day 1, then 250 mg days 2 to 5. [facility] benzonatate (TESSALON PERLES) 100 mg capsule 2021-07 00:00: 00 07-16 00:00 :00 No [id number] 100mg Take 1 capsule by mouth every 8 (eight) hours as needed for Cough. [facility] semaglutide , weight loss, 0.25 mg/0.5 mL PnIj SC injection 2021-07 00:00: 00 06-24 05:59 :00 No [id number] .25mg inject 0.25 mg under the skin weekly for 30 days. [facility] semaglutide , weight loss, 0.25 mg/0.5 mL PnIj SC injection 2021-07 00:00: 00 06-24 05:59 :00 No [id number] .25mg inject 0.25 mg under the skin weekly for 30 days. [facility] semaglutide , weight loss, 0.25 mg/0.5 mL PnIj SC injection 2021-07 00:00: 00 06-24 05:59 :00 No [id number] .25mg inject 0.25 mg under the skin weekly for 30 days. [facility] semaglutide , weight loss, 0.25 mg/0.5 mL PnIj SC injection 2021-07 00:00: 00 06-24 05:59 :00 No [id number] .25mg inject 0.25 mg under the skin weekly for 30 days. [facility] semaglutide , weight loss, 0.25 mg/0.5 mL PnIj SC injection 2021-07 00:00: 00 06-24 05:59 :00 No [id number] .25mg inject 0.25 mg under the skin weekly for 30 days. [facility] semaglutide , weight loss, 0.25 mg/0.5 mL PnIj SC injection 2021-07 00:00: 00 06-24 05:59 :00 No [id number] .25mg inject 0.25 mg under the skin weekly for 30 days. [facility] semaglutide , weight loss, 0.25 mg/0.5 mL PnIj SC injection 2021-07 00:00: 00 06-24 05:59 :00 No [id number] .25mg inject 0.25 mg under the skin weekly for 30 days. [facility] b complex vitamins (SUPER B-50 COMPLEX) capsule 2021-07 12:00: 35 Yes 1{capsu le} Take 1 capsule by mouth in the morning. [facility] b complex vitamins (SUPER B-50 COMPLEX) capsule 2021-07 12:00: 35 Yes 1{capsu le} Take 1 capsule by mouth in the morning. [facility] b complex vitamins (SUPER B-50 COMPLEX) capsule 2021-07 12:00: 35 Yes 1{capsu le} Take 1 capsule by mouth in the morning. [facility] ity [facility] b complex vitamins (SUPER B-50 COMPLEX) capsule 2021-07 12:00: 35 Yes 1{capsu le} Take 1 capsule by mouth in the morning. [facility] COMPLE[facility]) capsule 2021-07 12:00: 35 Yes 1{capsu le} Take 1 capsule by mouth in the morning. [facility] (SUPER B-50 COMPLEX) capsule 2021-07 12:00: 35 Yes 1{capsu le} Take 1 capsule by mouth in the morning. [facility] b complex vitamins (SUPER B-50 COMPLEX) capsule 2021-07 12:00: 35 Yes 1{capsu le} Take 1 capsule by mouth in the morning. [facility] b complex vitamins (SUPER B-50 COMPLEX) capsule 2021-07 12:00: 35 Yes 1{capsu le} Take 1 capsule by mouth in the morning. [facility] b complex vitamins (SUPER B-50 COMPLEX) capsule 2021-07 12:00: 35 Yes 1{capsu le} Take 1 capsule by mouth in the morning. [facility] b complex vitamins (SUPER B-50 COMPLEX) capsule 2021-07 12:00: 35 Yes 1{capsu le} Take 1 capsule by mouth in the morning. [facility] b complex vitamins (SUPER B-50 COMPLEX) capsule 2021-07 12:00: 35 Yes 1{capsu le} Take 1 capsule by mouth in the morning. [facility] b complex vitamins (SUPER B-50 COMPLEX) capsule 2021-07 12:00: 35 Yes 1{capsu le} Take 1 capsule by mouth in the morning. [facility] b complex vitamins (SUPER B-50 COMPLEX) capsule 2021-07 12:00: 35 Yes 1{capsu le} Take 1 capsule by mouth in the morning. [facility] b complex vitamins (SUPER B-50 COMPLEX) capsule 2021-07 12:00: 35 Yes 1{capsu le} Take 1 capsule by mouth in the morning. [facility] (SUPER B-50 COMPLEX) capsule 2021-07 12:00: 35 Yes 1{capsu le} Take 1 capsule by mouth in the morning. [facility] b complex vitamins (SUPER B-50 COMPLEX) capsule 2021-07 12:00: 35 Yes 1{capsu le} Take 1 capsule by mouth in the morning. [facility] (SUPER B-50 COMPLEX) capsule 2021-07 12:00: 35 Yes 1{capsu le} Take 1 capsule by mouth in the morning. [facility] b complex vitamins (SUPER B-50 COMPLEX) capsule 2021-07 12:00: 35 Yes 1{capsu le} Take 1 capsule by mouth in the morning. [facility] b complex vitamins (SUPER B-50 COMPLEX) capsule 2021-07 12:00: 35 Yes 1{capsu le} Take 1 capsule by mouth in the morning. [facility] b complex vitamins (SUPER B-50 COMPLEX) capsule 2021-07 12:00: 35 Yes 1{capsu le} Take 1 capsule by mouth in the morning. [facility] b complex vitamins (SUPER B-50 COMPLEX) capsule 2021-07 12:00: 35 Yes 1{capsu le} Take 1 capsule by mouth in the morning. [facility] b complex vitamins (SUPER B-50 COMPLEX) capsule 2021-07 12:00: 35 Yes 1{capsu le} Take 1 capsule by mouth in the morning. [facility] b complex vitamins (SUPER B-50 COMPLEX) capsule 2021-07 12:00: 35 Yes 1{capsu le} Take 1 capsule by mouth in the morning. [facility] b complex vitamins (SUPER B-50 COMPLEX) capsule 2021-07 12:00: 35 Yes 1{capsu le} Take 1 capsule by mouth in the morning. [facility] b complex vitamins (SUPER B-50 COMPLEX) capsule 2021-07 12:00: 35 Yes 1{capsu le} Take 1 capsule by mouth in the morning. [facility] (SUPER B-50 COMPLEX) capsule 2021-07 12:00: 35 Yes 1{capsu le} Take 1 capsule by mouth in the morning. [facility] b complex vitamins (SUPER B-50 COMPLEX) capsule 2021-07 12:00: 35 Yes 1{capsu le} Take 1 capsule by mouth in the morning. [facility] b complex vitamins (SUPER B-50 COMPLEX) capsule 2021-07 12:00: 35 Yes 1{capsu le} Take 1 capsule by mouth in the morning. [facility] b complex vitamins (SUPER B-50 COMPLEX) capsule 2021-07 12:00: 35 Yes 1{capsu le} Take 1 capsule by mouth in the morning. [facility] b complex vitamins (SUPER B-50 COMPLEX) capsule 2021-07 12:00: 35 Yes 1{capsu le} Take 1 capsule by mouth in the morning. [facility] b complex vitamins (SUPER B-50 COMPLEX) capsule 2021-07 12:00: 35 Yes 1{capsu le} Take 1 capsule by mouth in the morning. [facility] b complex vitamins (SUPER B-50 COMPLEX) capsule 2021-07 12:00: 35 Yes 1{capsu le} Take 1 capsule by mouth in the morning. [facility] b complex vitamins (SUPER B-50 COMPLEX) capsule 2021-07 12:00: 35 Yes 1{capsu le} Take 1 capsule by mouth in the morning. [facility] b complex vitamins (SUPER B-50 COMPLEX) capsule 2021-07 12:00: 35 Yes 1{capsu le} Take 1 capsule by mouth in the morning. [facility] b complex vitamins (SUPER B-50 COMPLEX) capsule 2021-07 12:00: 35 Yes 1{capsu le} Take 1 capsule by mouth in the morning. [facility] b complex vitamins (SUPER B-50 COMPLEX) capsule 2021-07 12:00: 35 Yes 1{capsu le} Take 1 capsule by mouth in the morning. [facility] b complex vitamins (SUPER B-50 COMPLEX) capsule 2021-07 12:00: 35 Yes 1{capsu le} Take 1 capsule by mouth in the morning. [facility] b complex vitamins (SUPER B-50 COMPLEX) capsule 2021-07 12:00: 35 Yes 1{capsu le} Take 1 capsule by mouth in the morning. [facility] b complex vitamins (SUPER B-50 COMPLEX) capsule 2021-07 12:00: 35 Yes 1{capsu le} Take 1 capsule by mouth in the morning. [facility] b complex vitamins (SUPER B-50 COMPLEX) capsule 2021-07 12:00: 35 Yes 1{capsu le} Take 1 capsule by mouth in the morning. [facility] losartan 25 mg tablet 2021-07 00:00: 00 Yes [id number] 25mg Take 1 tablet by mouth in the morning. [facility] losartan 25 mg tablet 2021-07 00:00: 00 Yes [id number] 25mg Take 1 tablet by mouth in the morning. [facility] losartan 25 mg tablet 2021-07 00:00: 00 Yes [id number] 25mg Take 1 tablet by mouth in the morning. [facility] losartan 25 mg tablet 2021-07 00:00: 00 Yes [id number] 25mg Take 1 tablet by mouth in the morning. [facility] losartan 25 mg tablet 2021-07 00:00: 00 Yes [id number] 25mg Take 1 tablet by mouth in the morning. [facility] losartan 25 mg tablet 2021-07 00:00: 00 Yes [id number] 25mg Take 1 tablet by mouth in the morning. [facility] losartan 25 mg tablet 2021-07 00:00: 00 Yes [id number] 25mg Take 1 tablet by mouth in the morning. [facility] losartan 25 mg tablet 2021-07 00:00: 00 Yes [id number] 25mg Take 1 tablet by mouth in the morning. [facility] losartan 25 mg tablet 2021-07 00:00: 00 Yes [id number] 25mg Take 1 tablet by mouth in the morning. [facility] losartan 25 mg tablet 2021-07 00:00: 00 Yes [id number] 25mg Take 1 tablet by mouth in the morning. [facility] losartan 25 mg tablet 2021-07 00:00: 00 Yes [id number] 25mg Take 1 tablet by mouth in the morning. [facility] losartan 25 mg tablet 2021-07 00:00: 00 Yes [id number] 25mg Take 1 tablet by mouth in the morning. [facility] losartan 25 mg tablet 2021-07 00:00: 00 Yes [id number] 25mg Take 1 tablet by mouth in the morning. [facility] losartan 25 mg tablet 2021-07 00:00: 00 Yes [id number] 25mg Take 1 tablet by mouth in the morning. [facility] losartan 25 mg tablet 2021-07 00:00: 00 Yes [id number] 25mg Take 1 tablet by mouth in the morning. [facility] losartan 25 mg tablet 2021-07 00:00: 00 08-11 00:00 :00 No [id number] 25mg Take 1 tablet by mouth in the morning. [facility] PROPRANOLOL 10 mg tablet 04-02 00:00: 00 Yes [id number] TAKE ONE-HALF (1/2) TABLET(S) BY MOUTH TWICE A DAY. [facility] PROPRANOLOL 10 mg tablet 0 04-02 00:00: 00 Yes [id number] TAKE ONE-HALF (1/2) TABLET(S) BY MOUTH TWICE A DAY. [facility] PROPRANOLOL 10 mg tablet 2021-0 04-02 00:00: 00 Yes [id number] TAKE ONE-HALF (1/2) TABLET(S) BY MOUTH TWICE A DAY. [facility] PROPRANOLOL 10 mg tablet 2022-0 9-14 00:00: 00 Yes [id number] TAKE ONE-HALF (1/2) TABLET(S) BY MOUTH TWICE A DAY. [facility] PROPRANOLOL 10 mg tablet 2022-0 9-14 00:00: 00 Yes [id number] TAKE ONE-HALF (1/2) TABLET(S) BY MOUTH TWICE A DAY. [facility] PROPRANOLOL 10 mg tablet 2022-0 9-14 00:00: 00 Yes [id number] TAKE ONE-HALF (1/2) TABLET(S) BY MOUTH TWICE A DAY. [facility] PROPRANOLOL 10 mg tablet 2022-0 9-14 00:00: 00 Yes [id number] TAKE ONE-HALF (1/2) TABLET(S) BY MOUTH TWICE A DAY[facility] 2022-0 9-14 00:00: 00 Yes [id number] TAKE ONE-HALF (1/2) TABLET(S) BY MOUTH TWICE A DAY. [facility] PROPRANOLOL 10 mg tablet 2022-0 9-14 00:00: 00 Yes [id number] TAKE ONE-HALF (1/2) TABLET(S) BY MOUTH TWICE A DAY. [facility] mg tablet 2022-0 9-14 00:00: 00 Yes [id number] TAKE ONE-HALF (1/2) TABLET(S) BY MOUTH TWICE A DAY. [facility] mg tablet 2022-0 9-14 00:00: 00 Yes [id number] TAKE ONE-HALF (1/2) TABLET(S) BY MOUTH TWICE A DAY. [facility] PROPRANOLOL 10 mg tablet 2022-0 9-14 00:00: 00 Yes [id number] TAKE ONE-HALF (1/2) TABLET(S) BY MOUTH TWICE A DAY. [facility] PROPRANOLOL 10 mg tablet 2022-0 9-14 00:00: 00 Yes [id number] TAKE ONE-HALF (1/2) TABLET(S) BY MOUTH TWICE A DAY. [facility] mg tablet 2022-0 9-14 00:00: 00 Yes [id number] TAKE ONE-HALF (1/2) TABLET(S) BY MOUTH TWICE A DAY. [facility] 2022-0 9-14 00:00: 00 Yes [id number] TAKE ONE-HALF (1/2) TABLET(S) BY MOUTH TWICE A DAY. [facility] PROPRANOLOL 10 mg tablet 2-0 9-14 00:00: 00 Yes [id number] TAKE ONE-HALF (1/2) TABLET(S) BY MOUTH TWICE A DAY. [facility] mg tablet 2022-0 9-14 00:00: 00 Yes [id number] TAKE ONE-HALF (1/2) TABLET(S) BY MOUTH TWICE A DAY. [facility] PROPRANOLOL 10 mg tablet 2-0 9-14 00:00: 00 Yes [id number] TAKE ONE-HALF (1/2) TABLET(S) BY MOUTH TWICE A DAY. [facility] PROPRANOLOL 10 mg tablet 2022-0 9-14 00:00: 00 Yes [id number] TAKE ONE-HALF (1/2) TABLET(S) BY MOUTH TWICE A DAY. [facility] PROPRANOLOL 10 mg tablet 2-0 9-14 00:00: 00 Yes [id number] TAKE ONE-HALF (1/2) TABLET(S) BY MOUTH TWICE A DAY. [facility] PROPRANOLOL 10 mg tablet 2-0 9-14 00:00: 00 17 00:00 :00 No [id number] TAKE ONE-HALF (1/2) TABLET(S) BY MOUTH TWICE A DAY. [facility] PROPRANOLOL 10 mg tablet 2-0 9-14 00:00: 00 09-05 00:00 :00 No [id number] TAKE ONE-HALF (1/2) TABLET(S) BY MOUTH TWICE A DAY. [facility] propranoloL 10 mg tablet 1-1 0-19 00:00: 00 Yes [id number] 5mg Take 0.5 tablets by mouth 2 (two) times daily. [facility] propranoloL 10 mg tablet 1-1 0-19 00:00: 00 Yes [id number] 5mg Take 0.5 tablets by mouth 2 (two) times daily. [facility] mg tablet 2020-1 0-19 00:00: 00 Yes [id number] 5mg Take 0.5 tablets by mouth 2 (two) times daily. [facility] propranoloL 10 mg tablet 2020-07 0 00:00: 00 Yes [id number] 5mg Take 0.5 tablets by mouth 2 (two) times daily. [facility] propranoloL 10 mg tablet 2020-07 0 00:00: 00 Yes [id number] 5mg Take 0.5 tablets by mouth 2 (two) times daily. [facility] propranoloL 10 mg tablet 2020-07 0 00:00: 00 Yes [id number] 5mg Take 0.5 tablets by mouth 2 (two) times daily. [facility] propranoloL 10 mg tablet 2020-07 0 00:00: 00 Yes [id number] 5mg Take 0.5 tablets by mouth 2 (two) times daily. [facility] propranoloL 10 mg tablet 2020-07 0 00:00: 00 Yes [id number] 5mg Take 0.5 tablets by mouth 2 (two) times daily. [facility] propranoloL 10 mg tablet 2020-07 00:00: 00 04-02 00:00 :00 No [id number] 5mg Take 0.5 tablets by mouth 2 (two) times daily. [facility] atorvastati n 40 mg tablet 04-17 00:00: 00 Yes [id number] 20mg Take 0.5 tablets by mouth at bedtime. [facility] atorvastati n 40 mg tablet 04-17 00:00: 00 Yes [id number] 20mg Take 0.5 tablets by mouth at bedtime. [facility] atorvastati n 40 mg tablet 04-17 00:00: 00 Yes [id number] 20mg Take 0.5 tablets by mouth at bedtime. [facility] atorvastati n 40 mg tablet 04-17 00:00: 00 Yes [id number] 20mg Take 0.5 tablets by mouth at bedtime. [facility] atorvastati n 40 mg tablet 04-17 00:00: 00 Yes [id number] 20mg Take 0.5 tablets by mouth at bedtime. [facility] atorvastati n 40 mg tablet 0 04-17 00:00: 00 Yes [id number] 20mg Take 0.5 tablets by mouth at bedtime. [facility] atorvastati n 40 mg tablet 0 04-17 00:00: 00 Yes [id number] 20mg Take 0.5 tablets by mouth at bedtime. [facility] atorvastati n 40 mg tablet 0 04-17 00:00: 00 Yes [id number] 20mg Take 0.5 tablets by mouth at bedtime. [facility] atorvastati n 40 mg tablet 04-17 00:00: 00 Yes [id number] 20mg Take 0.5 tablets by mouth at bedtime. [facility] atorvastati n 40 mg tablet 0 04-17 00:00: 00 Yes [id number] 20mg Take 0.5 tablets by mouth at bedtime. [facility] atorvastati n 40 mg tablet 0 04-17 00:00: 00 Yes [id number] 20mg Take 0.5 tablets by mouth at bedtime. [facility] atorvastati n 40 mg tablet 0 04-17 00:00: 00 Yes [id number] 20mg Take 0.5 tablets by mouth at bedtime. [facility] atorvastati n 40 mg tablet 0 04-17 00:00: 00 Yes [id number] 20mg Take 0.5 tablets by mouth at bedtime. [facility] atorvastati n 40 mg tablet 0 04-17 00:00: 00 Yes [id number] 20mg Take 0.5 tablets by mouth at bedtime. [facility] atorvastati n 40 mg tablet 0 04-17 00:00: 00 Yes [id number] 20mg Take 0.5 tablets by mouth at bedtime. [facility] atorvastati n 40 mg tablet 2020-0 04-17 00:00: 00 Yes [id number] 20mg Take 0.5 tablets by mouth at bedtime. [facility] atorvastati n 40 mg tablet 0 04-17 00:00: 00 Yes [id number] 20mg Take 0.5 tablets by mouth at bedtime. [facility] atorvastati n 40 mg tablet 04-17 00:00: 00 Yes [id number] 20mg Take 0.5 tablets by mouth at bedtime. [facility] atorvastati n 40 mg tablet 04-17 00:00: 00 Yes [id number] 20mg Take 0.5 tablets by mouth at bedtime. [facility] atorvastati n 40 mg tablet 04-17 00:00: 00 Yes [id number] 20mg Take 0.5 tablets by mouth at bedtime. [facility] atorvastati n 40 mg tablet 04-17 00:00: 00 Yes [id number] 20mg Take 0.5 tablets by mouth at bedtime. [facility] atorvastati n 40 mg tablet 04-17 00:00: 00 Yes [id number] 20mg Take 0.5 tablets by mouth at bedtime. [facility] atorvastati n 40 mg tablet 04-17 00:00: 00 Yes [id number] 20mg Take 0.5 tablets by mouth at bedtime. [facility] atorvastati n 40 mg tablet 04-17 00:00: 00 Yes [id number] 20mg Take 0.5 tablets by mouth at bedtime. [facility] atorvastati n 40 mg tablet 0 04-17 00:00: 00 Yes [id number] 20mg Take 0.5 tablets by mouth at bedtime. [facility] atorvastati n 40 mg tablet 04-17 00:00: 00 Yes [id number] 20mg Take 0.5 tablets by mouth at bedtime. [facility] atorvastati n 40 mg tablet 04-17 00:00: 00 08-11 00:00 :00 No [id number] 20mg Take 0.5 tablets by mouth at bedtime. [facility] lisinopriL 5 mg tablet 04-17 00:00: 00 05-07 00:00 :00 No [id number] 2.5mg Take 0.5 tablets by mouth daily. [facility] ascorbic acid (VITAMIN C ORAL) 02-27 11:07: 43 Yes Take by mouth daily. [facility] ergocalcife rol, vitamin D2, (VITAMIN D ORAL) 02-27 11:07: 43 Yes Take by mouth daily. [facility] Multivitami ns with Fluoride (MULTI-CHANTELLE MIN ORAL) 02-27 11:07: 43 Yes Take by mouth daily. [facility] aspirin 81 mg chewable tablet 02-27 11:07: 43 Yes 81mg Take 81 mg by mouth daily. [facility] KRILL OIL ORAL 02-27 11:07: 43 Yes Take by mouth daily. [facility] ascorbic acid (VITAMIN C ORAL) 02-27 11:07: 43 Yes Take by mouth daily. [facility] ergocalcife rol, vitamin D2, (VITAMIN D ORAL) 02-27 11:07: 43 Yes Take by mouth daily. [facility] Multivitami ns with Fluoride (MULTI-CHANTELLE MIN ORAL) 02-27 11:07: 43 Yes Take by mouth daily. [facility] aspirin 81 mg chewable tablet 02-27 11:07: 43 Yes 81mg Take 81 mg by mouth daily. [facility] KRILL OIL ORAL 02-27 11:07: 43 Yes Take by mouth daily. [facility] ascorbic acid (VITAMIN C ORAL) 02-27 11:07: 43 Yes Take by mouth daily. [facility] ergocalcife rol, vitamin D2, (VITAMIN D ORAL) 02-27 11:07: 43 Yes Take by mouth daily. [facility] Multivitami ns with Fluoride (MULTI-CHANTELLE MIN ORAL) 02-27 11:07: 43 Yes Take by mouth daily. [facility] aspirin 81 mg chewable tablet 02-27 11:07: 43 Yes 81mg Take 81 mg by mouth daily. [facility] KRILL OIL ORAL 02-27 11:07: 43 Yes Take by mouth daily. [facility] ascorbic acid (VITAMIN C ORAL) 02-27 11:07: 43 Yes Take by mouth daily. [facility] ergocalcife rol, vitamin D2, (VITAMIN D ORAL) 02-27 11:07: 43 Yes Take by mouth daily. [facility] Multivitami ns with Fluoride (MULTI-CHANTELLE MIN ORAL) 02-27 11:07: 43 Yes Take by mouth daily. [facility] aspirin 81 mg chewable tablet 02-27 11:07: 43 Yes 81mg Take 81 mg by mouth daily. [facility] KRILL OIL ORAL 02-27 11:07: 43 Yes Take by mouth daily. [facility] ascorbic acid (VITAMIN C ORAL) 02-27 11:07: 43 Yes Take by mouth daily. [facility] ergocalcife rol, vitamin D2, (VITAMIN D ORAL) 02-27 11:07: 43 Yes Take by mouth daily. [facility] Multivitami ns with Fluoride (MULTI-CHANTELLE MIN ORAL) 02-27 11:07: 43 Yes Take by mouth daily. [facility] aspirin 81 mg chewable tablet 02-27 11:07: 43 Yes 81mg Take 81 mg by mouth daily. [facility] KRILL OIL ORAL 02-27 11:07: 43 Yes Take by mouth daily. [facility] ascorbic acid (VITAMIN C ORAL) 02-27 11:07: 43 Yes Take by mouth daily. [facility] ergocalcife rol, vitamin D2, (VITAMIN D ORAL) 02-27 11:07: 43 Yes Take by mouth daily. [facility] Multivitami ns with Fluoride (MULTI-CHANTELLE MIN ORAL) 02-27 11:07: 43 Yes Take by mouth daily. [facility] aspirin 81 mg chewable tablet 02-27 11:07: 43 Yes 81mg Take 81 mg by mouth daily. [facility] KRILL OIL ORAL 02-27 11:07: 43 Yes Take by mouth daily. [facility] ascorbic acid (VITAMIN C ORAL) 02-27 11:07: 43 Yes Take by mouth daily. [facility] ergocalcife rol, vitamin D2, (VITAMIN D ORAL) 02-27 11:07: 43 Yes Take by mouth daily. [facility] Multivitami ns with Fluoride (MULTI-CHANTELLE MIN ORAL) 02-27 11:07: 43 Yes Take by mouth daily. [facility] aspirin 81 mg chewable tablet 02-27 11:07: 43 Yes 81mg Take 81 mg by mouth daily. [facility] KRILL OIL ORAL 02-27 11:07: 43 Yes Take by mouth daily. [facility] ascorbic acid (VITAMIN C ORAL) 02-27 11:07: 43 Yes Take by mouth daily. [facility] ergocalcife rol, vitamin D2, (VITAMIN D ORAL) 02-27 11:07: 43 Yes Take by mouth daily. [facility] Multivitami ns with Fluoride (MULTI-CHANTELLE MIN ORAL) 02-27 11:07: 43 Yes Take by mouth daily. [facility] aspirin 81 mg chewable tablet 02-27 11:07: 43 Yes 81mg Take 81 mg by mouth daily. [facility] KRILL OIL ORAL 02-27 11:07: 43 Yes Take by mouth daily. [facility] ascorbic acid (VITAMIN C ORAL) 02-27 11:07: 43 Yes Take by mouth daily. [facility] ergocalcife rol, vitamin D2, (VITAMIN D ORAL) 02-27 11:07: 43 Yes Take by mouth daily. [facility] Multivitami ns with Fluoride (MULTI-CHANTELLE MIN ORAL) 02-27 11:07: 43 Yes Take by mouth daily. [facility] aspirin 81 mg chewable tablet 02-27 11:07: 43 Yes 81mg Take 81 mg by mouth daily. [facility] KRILL OIL ORAL 02-27 11:07: 43 Yes Take by mouth daily. [facility] ascorbic acid (VITAMIN C ORAL) 02-27 11:07: 43 Yes Take by mouth daily. [facility] ergocalcife rol, vitamin D2, (VITAMIN D ORAL) 02-27 11:07: 43 Yes Take by mouth daily. [facility] Multivitami ns with Fluoride (MULTI-CHANTELLE MIN ORAL) 02-27 11:07: 43 Yes Take by mouth daily. [facility] aspirin 81 mg chewable tablet 02-27 11:07: 43 Yes 81mg Take 81 mg by mouth daily. [facility] KRILL OIL ORAL 02-27 11:07: 43 Yes Take by mouth daily. [facility] ascorbic acid (VITAMIN C ORAL) 02-27 11:07: 43 Yes Take by mouth daily. [facility] ergocalcife rol, vitamin D2, (VITAMIN D ORAL) 02-27 11:07: 43 Yes Take by mouth daily. [facility] Multivitami ns with Fluoride (MULTI-CHANTELLE MIN ORAL) 02-27 11:07: 43 Yes Take by mouth daily. [facility] aspirin 81 mg chewable tablet 02-27 11:07: 43 Yes 81mg Take 81 mg by mouth daily. [facility] KRILL OIL ORAL 02-27 11:07: 43 Yes Take by mouth daily. [facility] ascorbic acid (VITAMIN C ORAL) 02-27 11:07: 43 Yes Take by mouth daily. [facility] ergocalcife rol, vitamin D2, (VITAMIN D ORAL) 02-27 11:07: 43 Yes Take by mouth daily. [facility] Multivitami ns with Fluoride (MULTI-CHANTELLE MIN ORAL) 02-27 11:07: 43 Yes Take by mouth daily. [facility] aspirin 81 mg chewable tablet 02-27 11:07: 43 Yes 81mg Take 81 mg by mouth daily. [facility] KRILL OIL ORAL 02-27 11:07: 43 Yes Take by mouth daily. [facility] ascorbic acid (VITAMIN C ORAL) 02-27 11:07: 43 Yes Take by mouth daily. [facility] ergocalcife rol, vitamin D2, (VITAMIN D ORAL) 02-27 11:07: 43 Yes Take by mouth daily. [facility] Multivitami ns with Fluoride (MULTI-CHANTELLE MIN ORAL) 02-27 11:07: 43 Yes Take by mouth daily. [facility] aspirin 81 mg chewable tablet 02-27 11:07: 43 Yes 81mg Take 81 mg by mouth daily. [facility] KRILL OIL ORAL 02-27 11:07: 43 Yes Take by mouth daily. [facility] ascorbic acid (VITAMIN C ORAL) 02-27 11:07: 43 Yes Take by mouth daily. [facility] ergocalcife rol, vitamin D2, (VITAMIN D ORAL) 02-27 11:07: 43 Yes Take by mouth daily. [facility] Multivitami ns with Fluoride (MULTI-CHANTELLE MIN ORAL) 02-27 11:07: 43 Yes Take by mouth daily. [facility] aspirin 81 mg chewable tablet 02-27 11:07: 43 Yes 81mg Take 81 mg by mouth daily. [facility] KRILL OIL ORAL 02-27 11:07: 43 Yes Take by mouth daily. [facility] ascorbic acid (VITAMIN C ORAL) 02-27 11:07: 43 Yes Take by mouth daily. [facility] ergocalcife rol, vitamin D2, (VITAMIN D ORAL) 02-27 11:07: 43 Yes Take by mouth daily. [facility] Multivitami ns with Fluoride (MULTI-CHANTELLE MIN ORAL) 02-27 11:07: 43 Yes Take by mouth daily. [facility] aspirin 81 mg chewable tablet 02-27 11:07: 43 Yes 81mg Take 81 mg by mouth daily. [facility] KRILL OIL ORAL 02-27 11:07: 43 Yes Take by mouth daily. [facility] ascorbic acid (VITAMIN C ORAL) 02-27 11:07: 43 Yes Take by mouth daily. [facility] ergocalcife rol, vitamin D2, (VITAMIN D ORAL) 02-27 11:07: 43 Yes Take by mouth daily. [facility] Multivitami ns with Fluoride (MULTI-CHANTELLE MIN ORAL) 02-27 11:07: 43 Yes Take by mouth daily. [facility] aspirin 81 mg chewable tablet 02-27 11:07: 43 Yes 81mg Take 81 mg by mouth daily. [facility] KRILL OIL ORAL 02-27 11:07: 43 Yes Take by mouth daily. [facility] ascorbic acid (VITAMIN C ORAL) 02-27 11:07: 43 Yes Take by mouth daily. [facility] ergocalcife rol, vitamin D2, (VITAMIN D ORAL) 02-27 11:07: 43 Yes Take by mouth daily. [facility] Multivitami ns with Fluoride (MULTI-CHANTELLE MIN ORAL) 02-27 11:07: 43 Yes Take by mouth daily. [facility] aspirin 81 mg chewable tablet 02-27 11:07: 43 Yes 81mg Take 81 mg by mouth daily. [facility] KRILL OIL ORAL 02-27 11:07: 43 Yes Take by mouth daily. [facility] ascorbic acid (VITAMIN C ORAL) 02-27 11:07: 43 Yes Take by mouth daily. [facility] ergocalcife rol, vitamin D2, (VITAMIN D ORAL) 02-27 11:07: 43 Yes Take by mouth daily. [facility] Multivitami ns with Fluoride (MULTI-CHANTELLE MIN ORAL) 02-27 11:07: 43 Yes Take by mouth daily. [facility] aspirin 81 mg chewable tablet 02-27 11:07: 43 Yes 81mg Take 81 mg by mouth daily. [facility] KRILL OIL ORAL 02-27 11:07: 43 Yes Take by mouth daily. [facility] ascorbic acid (VITAMIN C ORAL) 02-27 11:07: 43 Yes Take by mouth daily. [facility] ergocalcife rol, vitamin D2, (VITAMIN D ORAL) 02-27 11:07: 43 Yes Take by mouth daily. [facility] Multivitami ns with Fluoride (MULTI-CHANTELLE MIN ORAL) 02-27 11:07: 43 Yes Take by mouth daily. [facility] aspirin 81 mg chewable tablet 02-27 11:07: 43 Yes 81mg Take 81 mg by mouth daily. [facility] KRILL OIL ORAL 02-27 11:07: 43 Yes Take by mouth daily. [facility] ascorbic acid (VITAMIN C ORAL) 02-27 11:07: 43 Yes Take by mouth daily. [facility] ergocalcife rol, vitamin D2, (VITAMIN D ORAL) 02-27 11:07: 43 Yes Take by mouth daily. [facility] Multivitami ns with Fluoride (MULTI-CHANTELLE MIN ORAL) 02-27 11:07: 43 Yes Take by mouth daily. [facility] aspirin 81 mg chewable tablet 02-27 11:07: 43 Yes 81mg Take 81 mg by mouth daily. [facility] KRILL OIL ORAL 02-27 11:07: 43 Yes Take by mouth daily. [facility] ascorbic acid (VITAMIN C ORAL) 02-27 11:07: 43 Yes Take by mouth daily. [facility] ergocalcife rol, vitamin D2, (VITAMIN D ORAL) 02-27 11:07: 43 Yes Take by mouth daily. [facility] Multivitami ns with Fluoride (MULTI-CHANTELLE MIN ORAL) 02-27 11:07: 43 Yes Take by mouth daily. [facility] aspirin 81 mg chewable tablet 02-27 11:07: 43 Yes 81mg Take 81 mg by mouth daily. [facility] KRILL OIL ORAL 02-27 11:07: 43 Yes Take by mouth daily. [facility] ascorbic acid (VITAMIN C ORAL) 02-27 11:07: 43 Yes Take by mouth daily. [facility] ergocalcife rol, vitamin D2, (VITAMIN D ORAL) 02-27 11:07: 43 Yes Take by mouth daily. [facility] Multivitami ns with Fluoride (MULTI-CHANTELLE MIN ORAL) 02-27 11:07: 43 Yes Take by mouth daily. [facility] aspirin 81 mg chewable tablet 02-27 11:07: 43 Yes 81mg Take 81 mg by mouth daily. [facility] KRILL OIL ORAL 02-27 11:07: 43 Yes Take by mouth daily. [facility] ascorbic acid (VITAMIN C ORAL) 02-27 11:07: 43 Yes Take by mouth daily. [facility] ergocalcife rol, vitamin D2, (VITAMIN D ORAL) 02-27 11:07: 43 Yes Take by mouth daily. [facility] Multivitami ns with Fluoride (MULTI-CHANTELLE MIN ORAL) 02-27 11:07: 43 Yes Take by mouth daily. [facility] aspirin 81 mg chewable tablet 02-27 11:07: 43 Yes 81mg Take 81 mg by mouth daily. [facility] KRILL OIL ORAL 02-27 11:07: 43 Yes Take by mouth daily. [facility] ascorbic acid (VITAMIN C ORAL) 02-27 11:07: 43 Yes Take by mouth daily. [facility] ergocalcife rol, vitamin D2, (VITAMIN D ORAL) 02-27 11:07: 43 Yes Take by mouth daily. [facility] Multivitami ns with Fluoride (MULTI-CHANTELLE MIN ORAL) 02-27 11:07: 43 Yes Take by mouth daily. [facility] aspirin 81 mg chewable tablet 02-27 11:07: 43 Yes 81mg Take 81 mg by mouth daily. [facility] KRILL OIL ORAL 02-27 11:07: 43 Yes Take by mouth daily. [facility] ascorbic acid (VITAMIN C ORAL) 02-27 11:07: 43 Yes Take by mouth daily. [facility] ergocalcife rol, vitamin D2, (VITAMIN D ORAL) 02-27 11:07: 43 Yes Take by mouth daily. [facility] Multivitami ns with Fluoride (MULTI-CHANTELLE MIN ORAL) 02-27 11:07: 43 Yes Take by mouth daily. [facility] aspirin 81 mg chewable tablet 02-27 11:07: 43 Yes 81mg Take 81 mg by mouth daily. [facility] KRILL OIL ORAL 02-27 11:07: 43 Yes Take by mouth daily. [facility] ascorbic acid (VITAMIN C ORAL) 02-27 11:07: 43 Yes Take by mouth daily. [facility] ergocalcife rol, vitamin D2, (VITAMIN D ORAL) 02-27 11:07: 43 Yes Take by mouth daily. [facility] Multivitami ns with Fluoride (MULTI-CHANTELLE MIN ORAL) 02-27 11:07: 43 Yes Take by mouth daily. [facility] aspirin 81 mg chewable tablet 02-27 11:07: 43 Yes 81mg Take 81 mg by mouth daily. [facility] KRILL OIL ORAL 02-27 11:07: 43 Yes Take by mouth daily. [facility] ascorbic acid (VITAMIN C ORAL) 02-27 11:07: 43 Yes Take by mouth daily. [facility] ergocalcife rol, vitamin D2, (VITAMIN D ORAL) 02-27 11:07: 43 Yes Take by mouth daily. [facility] Multivitami ns with Fluoride (MULTI-CHANTELLE MIN ORAL) 02-27 11:07: 43 Yes Take by mouth daily. [facility] aspirin 81 mg chewable tablet 02-27 11:07: 43 Yes 81mg Take 81 mg by mouth daily. [facility] KRILL OIL ORAL 02-27 11:07: 43 Yes Take by mouth daily. [facility] ascorbic acid (VITAMIN C ORAL) 02-27 11:07: 43 Yes Take by mouth daily. [facility] ergocalcife rol, vitamin D2, (VITAMIN D ORAL) 02-27 11:07: 43 Yes Take by mouth daily. [facility] Multivitami ns with Fluoride (MULTI-CHANTELLE MIN ORAL) 02-27 11:07: 43 Yes Take by mouth daily. [facility] aspirin 81 mg chewable tablet 02-27 11:07: 43 Yes 81mg Take 81 mg by mouth daily. [facility] KRILL OIL ORAL 02-27 11:07: 43 Yes Take by mouth daily. [facility] ascorbic acid (VITAMIN C ORAL) 02-27 11:07: 43 Yes Take by mouth daily. [facility] ergocalcife rol, vitamin D2, (VITAMIN D ORAL) 02-27 11:07: 43 Yes Take by mouth daily. [facility] Multivitami ns with Fluoride (MULTI-CHANTELLE MIN ORAL) 02-27 11:07: 43 Yes Take by mouth daily. [facility] aspirin 81 mg chewable tablet 02-27 11:07: 43 Yes 81mg Take 81 mg by mouth daily. [facility] KRILL OIL ORAL 02-27 11:07: 43 Yes Take by mouth daily. [facility] ascorbic acid (VITAMIN C ORAL) 02-27 11:07: 43 Yes Take by mouth daily. [facility] ergocalcife rol, vitamin D2, (VITAMIN D ORAL) 02-27 11:07: 43 Yes Take by mouth daily. [facility] Multivitami ns with Fluoride (MULTI-CHANTELLE MIN ORAL) 02-27 11:07: 43 Yes Take by mouth daily. [facility] aspirin 81 mg chewable tablet 02-27 11:07: 43 Yes 81mg Take 81 mg by mouth daily. [facility] KRILL OIL ORAL 02-27 11:07: 43 Yes Take by mouth daily. [facility] ascorbic acid (VITAMIN C ORAL) 02-27 11:07: 43 Yes Take by mouth daily. [facility] ergocalcife rol, vitamin D2, (VITAMIN D ORAL) 02-27 11:07: 43 Yes Take by mouth daily. [facility] Multivitami ns with Fluoride (MULTI-CHANTELLE MIN ORAL) 02-27 11:07: 43 Yes Take by mouth daily. [facility] aspirin 81 mg chewable tablet 02-27 11:07: 43 Yes 81mg Take 81 mg by mouth daily. [facility] KRILL OIL ORAL 02-27 11:07: 43 Yes Take by mouth daily. [facility] ascorbic acid (VITAMIN C ORAL) 02-27 11:07: 43 Yes Take by mouth daily. [facility] ergocalcife rol, vitamin D2, (VITAMIN D ORAL) 02-27 11:07: 43 Yes Take by mouth daily. [facility] Multivitami ns with Fluoride (MULTI-CHANTELLE MIN ORAL) 02-27 11:07: 43 Yes Take by mouth daily. [facility] aspirin 81 mg chewable tablet 02-27 11:07: 43 Yes 81mg Take 81 mg by mouth daily. [facility] KRILL OIL ORAL 02-27 11:07: 43 Yes Take by mouth daily. [facility] ascorbic acid (VITAMIN C ORAL) 02-27 11:07: 43 Yes Take by mouth daily. [facility] ergocalcife rol, vitamin D2, (VITAMIN D ORAL) 02-27 11:07: 43 Yes Take by mouth daily. [facility] Multivitami ns with Fluoride (MULTI-CHANTELLE MIN ORAL) 02-27 11:07: 43 Yes Take by mouth daily. [facility] aspirin 81 mg chewable tablet 02-27 11:07: 43 Yes 81mg Take 81 mg by mouth daily. [facility] KRILL OIL ORAL 02-27 11:07: 43 Yes Take by mouth daily. [facility] ascorbic acid (VITAMIN C ORAL) 02-27 11:07: 43 Yes Take by mouth daily. [facility] ergocalcife rol, vitamin D2, (VITAMIN D ORAL) 02-27 11:07: 43 Yes Take by mouth daily. [facility] Multivitami ns with Fluoride (MULTI-CHANTELLE MIN ORAL) 02-27 11:07: 43 Yes Take by mouth daily. [facility] aspirin 81 mg chewable tablet 02-27 11:07: 43 Yes 81mg Take 81 mg by mouth daily. [facility] KRILL OIL ORAL 02-27 11:07: 43 Yes Take by mouth daily. [facility] ascorbic acid (VITAMIN C ORAL) 02-27 11:07: 43 Yes Take by mouth daily. [facility] ergocalcife rol, vitamin D2, (VITAMIN D ORAL) 02-27 11:07: 43 Yes Take by mouth daily. [facility] Multivitami ns with Fluoride (MULTI-CHANTELLE MIN ORAL) 02-27 11:07: 43 Yes Take by mouth daily. [facility] aspirin 81 mg chewable tablet 02-27 11:07: 43 Yes 81mg Take 81 mg by mouth daily. [facility] KRILL OIL ORAL 02-27 11:07: 43 Yes Take by mouth daily. [facility] ascorbic acid (VITAMIN C ORAL) 02-27 11:07: 43 Yes Take by mouth daily. [facility] ergocalcife rol, vitamin D2, (VITAMIN D ORAL) 02-27 11:07: 43 Yes Take by mouth daily. [facility] Multivitami ns with Fluoride (MULTI-CHANTELLE MIN ORAL) 02-27 11:07: 43 Yes Take by mouth daily. [facility] aspirin 81 mg chewable tablet 02-27 11:07: 43 Yes 81mg Take 81 mg by mouth daily. [facility] KRILL OIL ORAL 02-27 11:07: 43 Yes Take by mouth daily. [facility] ascorbic acid (VITAMIN C ORAL) 02-27 11:07: 43 Yes Take by mouth daily. [facility] ergocalcife rol, vitamin D2, (VITAMIN D ORAL) 02-27 11:07: 43 Yes Take by mouth daily. [facility] Multivitami ns with Fluoride (MULTI-CHANTELLE MIN ORAL) 02-27 11:07: 43 Yes Take by mouth daily. [facility] aspirin 81 mg chewable tablet 02-27 11:07: 43 Yes 81mg Take 81 mg by mouth daily. [facility] KRILL OIL ORAL 02-27 11:07: 43 Yes Take by mouth daily. [facility] ascorbic acid (VITAMIN C ORAL) 02-27 11:07: 43 Yes Take by mouth daily. [facility] ergocalcife rol, vitamin D2, (VITAMIN D ORAL) 02-27 11:07: 43 Yes Take by mouth daily. [facility] Multivitami ns with Fluoride (MULTI-CHANTELLE MIN ORAL) 02-27 11:07: 43 Yes Take by mouth daily. [facility] aspirin 81 mg chewable tablet 02-27 11:07: 43 Yes 81mg Take 81 mg by mouth daily. [facility] KRILL OIL ORAL 02-27 11:07: 43 Yes Take by mouth daily. [facility] ascorbic acid (VITAMIN C ORAL) 02-27 11:07: 43 Yes Take by mouth daily. [facility] ergocalcife rol, vitamin D2, (VITAMIN D ORAL) 02-27 11:07: 43 Yes Take by mouth daily. [facility] Multivitami ns with Fluoride (MULTI-CHANTELLE MIN ORAL) 02-27 11:07: 43 Yes Take by mouth daily. [facility] aspirin 81 mg chewable tablet 02-27 11:07: 43 Yes 81mg Take 81 mg by mouth daily. [facility] KRILL OIL ORAL 02-27 11:07: 43 Yes Take by mouth daily. [facility] ascorbic acid (VITAMIN C ORAL) 02-27 11:07: 43 Yes Take by mouth daily. [facility] ergocalcife rol, vitamin D2, (VITAMIN D ORAL) 02-27 11:07: 43 Yes Take by mouth daily. [facility] Multivitami ns with Fluoride (MULTI-CHANTELLE MIN ORAL) 02-27 11:07: 43 Yes Take by mouth daily. [facility] aspirin 81 mg chewable tablet 02-27 11:07: 43 Yes 81mg Take 81 mg by mouth daily. [facility] KRILL OIL ORAL 02-27 11:07: 43 Yes Take by mouth daily. [facility] ascorbic acid (VITAMIN C ORAL) 02-27 11:07: 43 Yes Take by mouth daily. [facility] ergocalcife rol, vitamin D2, (VITAMIN D ORAL) 02-27 11:07: 43 Yes Take by mouth daily. [facility] Multivitami ns with Fluoride (MULTI-CHANTELLE MIN ORAL) 02-27 11:07: 43 Yes Take by mouth daily. [facility] aspirin 81 mg chewable tablet 02-27 11:07: 43 Yes 81mg Take 81 mg by mouth daily. [facility] KRILL OIL ORAL 02-27 11:07: 43 Yes Take by mouth daily. [facility] ascorbic acid (VITAMIN C ORAL) 02-27 11:07: 43 Yes Take by mouth daily. [facility] ergocalcife rol, vitamin D2, (VITAMIN D ORAL) 02-27 11:07: 43 Yes Take by mouth daily. [facility] Multivitami ns with Fluoride (MULTI-CHANTELLE MIN ORAL) 02-27 11:07: 43 Yes Take by mouth daily. [facility] aspirin 81 mg chewable tablet 02-27 11:07: 43 Yes 81mg Take 81 mg by mouth daily. [facility] KRILL OIL ORAL 02-27 11:07: 43 Yes Take by mouth daily. [facility] ascorbic acid (VITAMIN C ORAL) 02-27 11:07: 43 Yes Take by mouth daily. [facility] ergocalcife rol, vitamin D2, (VITAMIN D ORAL) 02-27 11:07: 43 Yes Take by mouth daily. [facility] Multivitami ns with Fluoride (MULTI-CHANTELLE MIN ORAL) 02-27 11:07: 43 Yes Take by mouth daily. [facility] aspirin 81 mg chewable tablet 02-27 11:07: 43 Yes 81mg Take 81 mg by mouth daily. [facility] KRILL OIL ORAL 02-27 11:07: 43 Yes Take by mouth daily. [facility] ascorbic acid (VITAMIN C ORAL) 02-27 11:07: 43 Yes Take by mouth daily. [facility] ergocalcife rol, vitamin D2, (VITAMIN D ORAL) 02-27 11:07: 43 Yes Take by mouth daily. [facility] Multivitami ns with Fluoride (MULTI-CHANTELLE MIN ORAL) 02-27 11:07: 43 Yes Take by mouth daily. [facility] aspirin 81 mg chewable tablet 02-27 11:07: 43 Yes 81mg Take 81 mg by mouth daily. [facility] KRILL OIL ORAL 02-27 11:07: 43 Yes Take by mouth daily. [facility] ascorbic acid (VITAMIN C ORAL) 02-27 11:07: 43 Yes Take by mouth daily. [facility] ergocalcife rol, vitamin D2, (VITAMIN D ORAL) 02-27 11:07: 43 Yes Take by mouth daily. [facility] Multivitami ns with Fluoride (MULTI-CHANTELLE MIN ORAL) 02-27 11:07: 43 Yes Take by mouth daily. [facility] aspirin 81 mg chewable tablet 02-27 11:07: 43 Yes 81mg Take 81 mg by mouth daily. [facility] KRILL OIL ORAL 02-27 11:07: 43 Yes Take by mouth daily. [facility] ascorbic acid (VITAMIN C ORAL) 02-27 11:07: 43 Yes Take by mouth daily. [facility] Multivitami ns with Fluoride (MULTI-HCANTELLE MIN ORAL) 02-27 11:07: 43 Yes Take by mouth daily. [facility] aspirin 81 mg chewable tablet 02-27 11:07: 43 Yes 81mg Take 81 mg by mouth daily. [facility] KRILL OIL ORAL 02-27 11:07: 43 Yes Take by mouth daily. [facility] ascorbic acid (VITAMIN C ORAL) 02-27 11:07: 43 Yes Take by mouth daily. [facility] Multivitami ns with Fluoride (MULTI-CHANTELLE MIN ORAL) 02-27 11:07: 43 Yes Take by mouth daily. [facility] aspirin 81 mg chewable tablet 02-27 11:07: 43 Yes 81mg Take 81 mg by mouth daily. [facility] KRILL OIL ORAL 02-27 11:07: 43 Yes Take by mouth daily. [facility] ascorbic acid (VITAMIN C ORAL) 02-27 11:07: 43 Yes Take by mouth daily. [facility] Multivitami ns with Fluoride (MULTI-CHANTELLE MIN ORAL) 02-27 11:07: 43 Yes Take by mouth daily. [facility] aspirin 81 mg chewable tablet 02-27 11:07: 43 Yes 81mg Take 81 mg by mouth daily. [facility] KRILL OIL ORAL 02-27 11:07: 43 Yes Take by mouth daily. [facility] ascorbic acid (VITAMIN C ORAL) 02-27 11:07: 43 Yes Take by mouth daily. [facility] Multivitami ns with Fluoride (MULTI-CHANTELLE MIN ORAL) 02-27 11:07: 43 Yes Take by mouth daily. [facility] aspirin 81 mg chewable tablet 02-27 11:07: 43 Yes 81mg Take 81 mg by mouth daily. [facility] KRILL OIL ORAL 02-27 11:07: 43 Yes Take by mouth daily. [facility] ascorbic acid (VITAMIN C ORAL) 02-27 11:07: 43 Yes Take by mouth daily. [facility] Multivitami ns with Fluoride (MULTI-CHANTELLE MIN ORAL) 02-27 11:07: 43 Yes Take by mouth daily. [facility] aspirin 81 mg chewable tablet 02-27 11:07: 43 Yes 81mg Take 81 mg by mouth daily. [facility] KRILL OIL ORAL 02-27 11:07: 43 Yes Take by mouth daily. [facility] ascorbic acid (VITAMIN C ORAL) 02-27 11:07: 43 Yes Take by mouth daily. [facility] Multivitami ns with Fluoride (MULTI-CHANTELLE MIN ORAL) 02-27 11:07: 43 Yes Take by mouth daily. [facility] aspirin 81 mg chewable tablet 02-27 11:07: 43 Yes 81mg Take 81 mg by mouth daily. [facility] KRILL OIL ORAL 02-27 11:07: 43 Yes Take by mouth daily. [facility] ascorbic acid (VITAMIN C ORAL) 02-27 11:07: 43 Yes Take by mouth daily. [facility] Multivitami ns with Fluoride (MULTI-CHANTELLE MIN ORAL) 02-27 11:07: 43 Yes Take by mouth daily. [facility] aspirin 81 mg chewable tablet 02-27 11:07: 43 Yes 81mg Take 81 mg by mouth daily. [facility] KRILL OIL ORAL 02-27 11:07: 43 Yes Take by mouth daily. [facility] ascorbic acid (VITAMIN C ORAL) 02-27 11:07: 43 Yes Take by mouth daily. [facility] Multivitami ns with Fluoride (MULTI-CHANTELLE MIN ORAL) 02-27 11:07: 43 Yes Take by mouth daily. [facility] aspirin 81 mg chewable tablet 02-27 11:07: 43 Yes 81mg Take 81 mg by mouth daily. [facility] KRILL OIL ORAL 02-27 11:07: 43 Yes Take by mouth daily. [facility] ascorbic acid (VITAMIN C ORAL) 02-27 11:07: 43 Yes Take by mouth daily. [facility] Multivitami ns with Fluoride (MULTI-CHANTELLE MIN ORAL) 02-27 11:07: 43 Yes Take by mouth daily. [facility] aspirin 81 mg chewable tablet 02-27 11:07: 43 Yes 81mg Take 81 mg by mouth daily. [facility] KRILL OIL ORAL 02-27 11:07: 43 Yes Take by mouth daily. [facility] ascorbic acid (VITAMIN C ORAL) 02-27 11:07: 43 Yes Take by mouth daily. [facility] Multivitami ns with Fluoride (MULTI-CHANTELLE MIN ORAL) 02-27 11:07: 43 Yes Take by mouth daily. [facility] aspirin 81 mg chewable tablet 02-27 11:07: 43 Yes 81mg Take 81 mg by mouth daily. [facility] KRILL OIL ORAL 02-27 11:07: 43 Yes Take by mouth daily. [facility] ascorbic acid (VITAMIN C ORAL) 02-27 11:07: 43 Yes Take by mouth daily. [facility] Multivitami ns with Fluoride (MULTI-CHANTELLE MIN ORAL) 02-27 11:07: 43 Yes Take by mouth daily. [facility] aspirin 81 mg chewable tablet 02-27 11:07: 43 Yes 81mg Take 81 mg by mouth daily. [facility] KRILL OIL ORAL 02-27 11:07: 43 Yes Take by mouth daily. [facility] ascorbic acid (VITAMIN C ORAL) 02-27 11:07: 43 Yes Take by mouth daily. [facility] Multivitami ns with Fluoride (MULTI-CHANTELLE MIN ORAL) 02-27 11:07: 43 Yes Take by mouth daily. [facility] aspirin 81 mg chewable tablet 02-27 11:07: 43 Yes 81mg Take 81 mg by mouth daily. [facility] KRILL OIL ORAL 02-27 11:07: 43 Yes Take by mouth daily. [facility] ascorbic acid (VITAMIN C ORAL) 02-27 11:07: 43 Yes Take by mouth daily. [facility] Multivitami ns with Fluoride (MULTI-CHANTELLE MIN ORAL) 02-27 11:07: 43 Yes Take by mouth daily. [facility] aspirin 81 mg chewable tablet 02-27 11:07: 43 Yes 81mg Take 81 mg by mouth daily. [facility] KRILL OIL ORAL 02-27 11:07: 43 Yes Take by mouth daily. [facility] ascorbic acid (VITAMIN C ORAL) 02-27 11:07: 43 Yes Take by mouth daily. [facility] Multivitami ns with Fluoride (MULTI-CHANTELLE MIN ORAL) 02-27 11:07: 43 Yes Take by mouth daily. [facility] aspirin 81 mg chewable tablet 02-27 11:07: 43 Yes 81mg Take 81 mg by mouth daily. [facility] KRILL OIL ORAL 02-27 11:07: 43 Yes Take by mouth daily. [facility] ascorbic acid (VITAMIN C ORAL) 02-27 11:07: 43 Yes Take by mouth daily. [facility] Multivitami ns with Fluoride (MULTI-CHANTELLE MIN ORAL) 02-27 11:07: 43 Yes Take by mouth daily. [facility] aspirin 81 mg chewable tablet 02-27 11:07: 43 Yes 81mg Take 81 mg by mouth daily. [facility] KRILL OIL ORAL 02-27 11:07: 43 Yes Take by mouth daily. [facility] ascorbic acid (VITAMIN C ORAL) 02-27 11:07: 43 Yes Take by mouth daily. [facility] Multivitami ns with Fluoride (MULTI-CHANTELLE MIN ORAL) 02-27 11:07: 43 Yes Take by mouth daily. [facility] aspirin 81 mg chewable tablet 02-27 11:07: 43 Yes 81mg Take 81 mg by mouth daily. [facility] KRILL OIL ORAL 02-27 11:07: 43 Yes Take by mouth daily. [facility] ascorbic acid (VITAMIN C ORAL) 02-27 11:07: 43 Yes Take by mouth daily. [facility] Multivitami ns with Fluoride (MULTI-CHANTELLE MIN ORAL) 02-27 11:07: 43 Yes Take by mouth daily. [facility] aspirin 81 mg chewable tablet 02-27 11:07: 43 Yes 81mg Take 81 mg by mouth daily. [facility] KRILL OIL ORAL 02-27 11:07: 43 Yes Take by mouth daily. [facility] ascorbic acid (VITAMIN C ORAL) 02-27 11:07: 43 Yes Take by mouth daily. [facility] Multivitami ns with Fluoride (MULTI-CHANTELLE MIN ORAL) 02-27 11:07: 43 Yes Take by mouth daily. [facility] aspirin 81 mg chewable tablet 02-27 11:07: 43 Yes 81mg Take 81 mg by mouth daily. [facility] KRILL OIL ORAL 02-27 11:07: 43 Yes Take by mouth daily. [facility] ascorbic acid (VITAMIN C ORAL) 02-27 11:07: 43 Yes Take by mouth daily. [facility] Multivitami ns with Fluoride (MULTI-CHANTELLE MIN ORAL) 02-27 11:07: 43 Yes Take by mouth daily. [facility] aspirin 81 mg chewable tablet 02-27 11:07: 43 Yes 81mg Take 81 mg by mouth daily. [facility] KRILL OIL ORAL 02-27 11:07: 43 Yes Take by mouth daily. [facility] ascorbic acid (VITAMIN C ORAL) 02-27 11:07: 43 Yes Take by mouth daily. [facility] Multivitami ns with Fluoride (MULTI-CHANTELLE MIN ORAL) 02-27 11:07: 43 Yes Take by mouth daily. [facility] aspirin 81 mg chewable tablet 02-27 11:07: 43 Yes 81mg Take 81 mg by mouth daily. [facility] KRILL OIL ORAL 02-27 11:07: 43 Yes Take by mouth daily. [facility] ascorbic acid (VITAMIN C ORAL) 02-27 11:07: 43 Yes Take by mouth daily. [facility] ergocalcife rol, vitamin D2, (VITAMIN D ORAL) 02-27 11:07: 43 Yes Take by mouth daily. [facility] Multivitami ns with Fluoride (MULTI-CHANTELLE MIN ORAL) 02-27 11:07: 43 Yes Take by mouth daily. [facility] aspirin 81 mg chewable tablet 02-27 11:07: 43 Yes 81mg Take 81 mg by mouth daily. [facility] KRILL OIL ORAL 02-27 11:07: 43 Yes Take by mouth daily. [facility] ascorbic acid (VITAMIN C ORAL) 02-27 11:07: 43 Yes Take by mouth daily. [facility] ergocalcife rol, vitamin D2, (VITAMIN D ORAL) 02-27 11:07: 43 Yes Take by mouth daily. [facility] Multivitami ns with Fluoride (MULTI-CHANTELLE MIN ORAL) 02-27 11:07: 43 Yes Take by mouth daily. [facility] aspirin 81 mg chewable tablet 02-27 11:07: 43 Yes 81mg Take 81 mg by mouth daily. [facility] KRILL OIL ORAL 02-27 11:07: 43 Yes Take by mouth daily. [facility] cetirizine (ZYRTEC) 10 mg tablet 02-27 00:00: 00 Yes [id number] 10mg Take 1 tablet by mouth at bedtime as needed for Allergies. [facility] Zinc Acetate, Oral, 50 mg (zinc) Cap 02-27 00:00: 00 Yes [id number] 1{tbl} Take 1 tablet by mouth daily. [facility] Magnesium 250 mg Tab 02-27 00:00: 00 Yes [id number] 1{tbl} Take 1 tablet by mouth daily. [facility] calcium carbonate (CALCIUM 500) 500 mg calcium (1,250 mg) tablet 02-27 00:00: 00 Yes [id number] 500mg Take 1 tablet by mouth daily. [facility] cetirizine (ZYRTEC) 10 mg tablet 02-27 00:00: 00 Yes [id number] 10mg Take 1 tablet by mouth at bedtime as needed for Allergies. [facility] Zinc Acetate, Oral, 50 mg (zinc) Cap 02-27 00:00: 00 Yes [id number] 1{tbl} Take 1 tablet by mouth daily. [facility] Magnesium 250 mg Tab 02-27 00:00: 00 Yes [id number] 1{tbl} Take 1 tablet by mouth daily. [facility] calcium carbonate (CALCIUM 500) 500 mg calcium (1,250 mg) tablet 02-27 00:00: 00 Yes [id number] 500mg Take 1 tablet by mouth daily. [facility] cetirizine (ZYRTEC) 10 mg tablet 02-27 00:00: 00 Yes [id number] 10mg Take 1 tablet by mouth at bedtime as needed for Allergies. [facility] Zinc Acetate, Oral, 50 mg (zinc) Cap 02-27 00:00: 00 Yes [id number] 1{tbl} Take 1 tablet by mouth daily. [facility] Magnesium 250 mg Tab 02-27 00:00: 00 Yes [id number] 1{tbl} Take 1 tablet by mouth daily. [facility] calcium carbonate (CALCIUM 500) 500 mg calcium (1,250 mg) tablet 02-27 00:00: 00 Yes [id number] 500mg Take 1 tablet by mouth daily. [facility] cetirizine (ZYRTEC) 10 mg tablet 02-27 00:00: 00 Yes [id number] 10mg Take 1 tablet by mouth at bedtime as needed for Allergies. [facility] Zinc Acetate, Oral, 50 mg (zinc) Cap 02-27 00:00: 00 Yes [id number] 1{tbl} Take 1 tablet by mouth daily. [facility] Magnesium 250 mg Tab 02-27 00:00: 00 Yes [id number] 1{tbl} Take 1 tablet by mouth daily. [facility] calcium carbonate (CALCIUM 500) 500 mg calcium (1,250 mg) tablet 02-27 00:00: 00 Yes [id number] 500mg Take 1 tablet by mouth daily. [facility] cetirizine (ZYRTEC) 10 mg tablet 02-27 00:00: 00 Yes [id number] 10mg Take 1 tablet by mouth at bedtime as needed for Allergies. [facility] Zinc Acetate, Oral, 50 mg (zinc) Cap 02-27 00:00: 00 Yes [id number] 1{tbl} Take 1 tablet by mouth daily. [facility] Magnesium 250 mg Tab 02-27 00:00: 00 Yes [id number] 1{tbl} Take 1 tablet by mouth daily. [facility] calcium carbonate (CALCIUM 500) 500 mg calcium (1,250 mg) tablet 02-27 00:00: 00 Yes [id number] 500mg Take 1 tablet by mouth daily. [facility] cetirizine (ZYRTEC) 10 mg tablet 02-27 00:00: 00 Yes [id number] 10mg Take 1 tablet by mouth at bedtime as needed for Allergies. [facility] Zinc Acetate, Oral, 50 mg (zinc) Cap 02-27 00:00: 00 Yes [id number] 1{tbl} Take 1 tablet by mouth daily. [facility] Magnesium 250 mg Tab 02-27 00:00: 00 Yes [id number] 1{tbl} Take 1 tablet by mouth daily. [facility] calcium carbonate (CALCIUM 500) 500 mg calcium (1,250 mg) tablet 02-27 00:00: 00 Yes [id number] 500mg Take 1 tablet by mouth daily. [facility] cetirizine (ZYRTEC) 10 mg tablet 02-27 00:00: 00 Yes [id number] 10mg Take 1 tablet by mouth at bedtime as needed for Allergies. [facility] Zinc Acetate, Oral, 50 mg (zinc) Cap 02-27 00:00: 00 Yes [id number] 1{tbl} Take 1 tablet by mouth daily. [facility] Magnesium 250 mg Tab 02-27 00:00: 00 Yes [id number] 1{tbl} Take 1 tablet by mouth daily. [facility] calcium carbonate (CALCIUM 500) 500 mg calcium (1,250 mg) tablet 02-27 00:00: 00 Yes [id number] 500mg Take 1 tablet by mouth daily. [facility] cetirizine (ZYRTEC) 10 mg tablet 02-27 00:00: 00 Yes [id number] 10mg Take 1 tablet by mouth at bedtime as needed for Allergies. [facility] Zinc Acetate, Oral, 50 mg (zinc) Cap 02-27 00:00: 00 Yes [id number] 1{tbl} Take 1 tablet by mouth daily. [facility] Magnesium 250 mg Tab 02-27 00:00: 00 Yes [id number] 1{tbl} Take 1 tablet by mouth daily. [facility] calcium carbonate (CALCIUM 500) 500 mg calcium (1,250 mg) tablet 02-27 00:00: 00 Yes [id number] 500mg Take 1 tablet by mouth daily. [facility] cetirizine (ZYRTEC) 10 mg tablet 02-27 00:00: 00 Yes [id number] 10mg Take 1 tablet by mouth at bedtime as needed for Allergies. [facility] Zinc Acetate, Oral, 50 mg (zinc) Cap 02-27 00:00: 00 Yes [id number] 1{tbl} Take 1 tablet by mouth daily. [facility] Magnesium 250 mg Tab 02-27 00:00: 00 Yes [id number] 1{tbl} Take 1 tablet by mouth daily. [facility] calcium carbonate (CALCIUM 500) 500 mg calcium (1,250 mg) tablet 02-27 00:00: 00 Yes [id number] 500mg Take 1 tablet by mouth daily. [facility] cetirizine (ZYRTEC) 10 mg tablet 02-27 00:00: 00 Yes [id number] 10mg Take 1 tablet by mouth at bedtime as needed for Allergies. [facility] Zinc Acetate, Oral, 50 mg (zinc) Cap 02-27 00:00: 00 Yes [id number] 1{tbl} Take 1 tablet by mouth daily. [facility] Magnesium 250 mg Tab 02-27 00:00: 00 Yes [id number] 1{tbl} Take 1 tablet by mouth daily. [facility] calcium carbonate (CALCIUM 500) 500 mg calcium (1,250 mg) tablet 02-27 00:00: 00 Yes [id number] 500mg Take 1 tablet by mouth daily. [facility] cetirizine (ZYRTEC) 10 mg tablet 02-27 00:00: 00 Yes [id number] 10mg Take 1 tablet by mouth at bedtime as needed for Allergies. [facility] Zinc Acetate, Oral, 50 mg (zinc) Cap 02-27 00:00: 00 Yes [id number] 1{tbl} Take 1 tablet by mouth daily. [facility] Magnesium 250 mg Tab 02-27 00:00: 00 Yes [id number] 1{tbl} Take 1 tablet by mouth daily. [facility] calcium carbonate (CALCIUM 500) 500 mg calcium (1,250 mg) tablet 02-27 00:00: 00 Yes [id number] 500mg Take 1 tablet by mouth daily. [facility] cetirizine (ZYRTEC) 10 mg tablet 02-27 00:00: 00 Yes [id number] 10mg Take 1 tablet by mouth at bedtime as needed for Allergies. [facility] Zinc Acetate, Oral, 50 mg (zinc) Cap 02-27 00:00: 00 Yes [id number] 1{tbl} Take 1 tablet by mouth daily. [facility] Magnesium 250 mg Tab 02-27 00:00: 00 Yes [id number] 1{tbl} Take 1 tablet by mouth daily. [facility] calcium carbonate (CALCIUM 500) 500 mg calcium (1,250 mg) tablet 02-27 00:00: 00 Yes [id number] 500mg Take 1 tablet by mouth daily. [facility] cetirizine (ZYRTEC) 10 mg tablet 02-27 00:00: 00 Yes [id number] 10mg Take 1 tablet by mouth at bedtime as needed for Allergies. [facility] Zinc Acetate, Oral, 50 mg (zinc) Cap 02-27 00:00: 00 Yes [id number] 1{tbl} Take 1 tablet by mouth daily. [facility] Magnesium 250 mg Tab 02-27 00:00: 00 Yes [id number] 1{tbl} Take 1 tablet by mouth daily. [facility] calcium carbonate (CALCIUM 500) 500 mg calcium (1,250 mg) tablet 02-27 00:00: 00 Yes [id number] 500mg Take 1 tablet by mouth daily. [facility] cetirizine (ZYRTEC) 10 mg tablet 02-27 00:00: 00 Yes [id number] 10mg Take 1 tablet by mouth at bedtime as needed for Allergies. [facility] Zinc Acetate, Oral, 50 mg (zinc) Cap 02-27 00:00: 00 Yes [id number] 1{tbl} Take 1 tablet by mouth daily. [facility] Magnesium 250 mg Tab 02-27 00:00: 00 Yes [id number] 1{tbl} Take 1 tablet by mouth daily. [facility] calcium carbonate (CALCIUM 500) 500 mg calcium (1,250 mg) tablet 02-27 00:00: 00 Yes [id number] 500mg Take 1 tablet by mouth daily. [facility] cetirizine (ZYRTEC) 10 mg tablet 02-27 00:00: 00 Yes [id number] 10mg Take 1 tablet by mouth at bedtime as needed for Allergies. [facility] Zinc Acetate, Oral, 50 mg (zinc) Cap 02-27 00:00: 00 Yes [id number] 1{tbl} Take 1 tablet by mouth daily. [facility] Magnesium 250 mg Tab 02-27 00:00: 00 Yes [id number] 1{tbl} Take 1 tablet by mouth daily. [facility] calcium carbonate (CALCIUM 500) 500 mg calcium (1,250 mg) tablet 02-27 00:00: 00 Yes [id number] 500mg Take 1 tablet by mouth daily. [facility] cetirizine (ZYRTEC) 10 mg tablet 02-27 00:00: 00 Yes [id number] 10mg Take 1 tablet by mouth at bedtime as needed for Allergies. [facility] Zinc Acetate, Oral, 50 mg (zinc) Cap 02-27 00:00: 00 Yes [id number] 1{tbl} Take 1 tablet by mouth daily. [facility] Magnesium 250 mg Tab 02-27 00:00: 00 Yes [id number] 1{tbl} Take 1 tablet by mouth daily. [facility] calcium carbonate (CALCIUM 500) 500 mg calcium (1,250 mg) tablet 02-27 00:00: 00 Yes [id number] 500mg Take 1 tablet by mouth daily. [facility] cetirizine (ZYRTEC) 10 mg tablet 02-27 00:00: 00 Yes [id number] 10mg Take 1 tablet by mouth at bedtime as needed for Allergies. [facility] Zinc Acetate, Oral, 50 mg (zinc) Cap 02-27 00:00: 00 Yes [id number] 1{tbl} Take 1 tablet by mouth daily. [facility] Magnesium 250 mg Tab 02-27 00:00: 00 Yes [id number] 1{tbl} Take 1 tablet by mouth daily. [facility] calcium carbonate (CALCIUM 500) 500 mg calcium (1,250 mg) tablet 02-27 00:00: 00 Yes [id number] 500mg Take 1 tablet by mouth daily. [facility] cetirizine (ZYRTEC) 10 mg tablet 02-27 00:00: 00 Yes [id number] 10mg Take 1 tablet by mouth at bedtime as needed for Allergies. [facility] Zinc Acetate, Oral, 50 mg (zinc) Cap 02-27 00:00: 00 Yes [id number] 1{tbl} Take 1 tablet by mouth daily. [facility] Magnesium 250 mg Tab 02-27 00:00: 00 Yes [id number] 1{tbl} Take 1 tablet by mouth daily. [facility] calcium carbonate (CALCIUM 500) 500 mg calcium (1,250 mg) tablet 02-27 00:00: 00 Yes [id number] 500mg Take 1 tablet by mouth daily. [facility] cetirizine (ZYRTEC) 10 mg tablet 02-27 00:00: 00 Yes [id number] 10mg Take 1 tablet by mouth at bedtime as needed for Allergies. [facility] Zinc Acetate, Oral, 50 mg (zinc) Cap 02-27 00:00: 00 Yes [id number] 1{tbl} Take 1 tablet by mouth daily. [facility] Magnesium 250 mg Tab 02-27 00:00: 00 Yes [id number] 1{tbl} Take 1 tablet by mouth daily. [facility] calcium carbonate (CALCIUM 500) 500 mg calcium (1,250 mg) tablet 02-27 00:00: 00 Yes [id number] 500mg Take 1 tablet by mouth daily. [facility] cetirizine (ZYRTEC) 10 mg tablet 02-27 00:00: 00 Yes [id number] 10mg Take 1 tablet by mouth at bedtime as needed for Allergies. [facility] Zinc Acetate, Oral, 50 mg (zinc) Cap 02-27 00:00: 00 Yes [id number] 1{tbl} Take 1 tablet by mouth daily. [facility] Magnesium 250 mg Tab 02-27 00:00: 00 Yes [id number] 1{tbl} Take 1 tablet by mouth daily. [facility] calcium carbonate (CALCIUM 500) 500 mg calcium (1,250 mg) tablet 02-27 00:00: 00 Yes [id number] 500mg Take 1 tablet by mouth daily. [facility] cetirizine (ZYRTEC) 10 mg tablet 02-27 00:00: 00 Yes [id number] 10mg Take 1 tablet by mouth at bedtime as needed for Allergies. [facility] Zinc Acetate, Oral, 50 mg (zinc) Cap 02-27 00:00: 00 Yes [id number] 1{tbl} Take 1 tablet by mouth daily. [facility] Magnesium 250 mg Tab 02-27 00:00: 00 Yes [id number] 1{tbl} Take 1 tablet by mouth daily. [facility] calcium carbonate (CALCIUM 500) 500 mg calcium (1,250 mg) tablet 02-27 00:00: 00 Yes [id number] 500mg Take 1 tablet by mouth daily. [facility] cetirizine (ZYRTEC) 10 mg tablet 02-27 00:00: 00 Yes [id number] 10mg Take 1 tablet by mouth at bedtime as needed for Allergies. [facility] Zinc Acetate, Oral, 50 mg (zinc) Cap 02-27 00:00: 00 Yes [id number] 1{tbl} Take 1 tablet by mouth daily. [facility] Magnesium 250 mg Tab 02-27 00:00: 00 Yes [id number] 1{tbl} Take 1 tablet by mouth daily. [facility] calcium carbonate (CALCIUM 500) 500 mg calcium (1,250 mg) tablet 02-27 00:00: 00 Yes [id number] 500mg Take 1 tablet by mouth daily. [facility] cetirizine (ZYRTEC) 10 mg tablet 02-27 00:00: 00 Yes [id number] 10mg Take 1 tablet by mouth at bedtime as needed for Allergies. [facility] Zinc Acetate, Oral, 50 mg (zinc) Cap 02-27 00:00: 00 Yes [id number] 1{tbl} Take 1 tablet by mouth daily. [facility] Magnesium 250 mg Tab 02-27 00:00: 00 Yes [id number] 1{tbl} Take 1 tablet by mouth daily. [facility] calcium carbonate (CALCIUM 500) 500 mg calcium (1,250 mg) tablet 02-27 00:00: 00 Yes [id number] 500mg Take 1 tablet by mouth daily. [facility] cetirizine (ZYRTEC) 10 mg tablet 02-27 00:00: 00 Yes [id number] 10mg Take 1 tablet by mouth at bedtime as needed for Allergies. [facility] Zinc Acetate, Oral, 50 mg (zinc) Cap 02-27 00:00: 00 Yes [id number] 1{tbl} Take 1 tablet by mouth daily. [facility] Magnesium 250 mg Tab 02-27 00:00: 00 Yes [id number] 1{tbl} Take 1 tablet by mouth daily. [facility] calcium carbonate (CALCIUM 500) 500 mg calcium (1,250 mg) tablet 02-27 00:00: 00 Yes [id number] 500mg Take 1 tablet by mouth daily. [facility] cetirizine (ZYRTEC) 10 mg tablet 02-27 00:00: 00 Yes [id number] 10mg Take 1 tablet by mouth at bedtime as needed for Allergies. [facility] Zinc Acetate, Oral, 50 mg (zinc) Cap 02-27 00:00: 00 Yes [id number] 1{tbl} Take 1 tablet by mouth daily. [facility] Magnesium 250 mg Tab 02-27 00:00: 00 Yes [id number] 1{tbl} Take 1 tablet by mouth daily. [facility] calcium carbonate (CALCIUM 500) 500 mg calcium (1,250 mg) tablet 02-27 00:00: 00 Yes [id number] 500mg Take 1 tablet by mouth daily. [facility] cetirizine (ZYRTEC) 10 mg tablet 02-27 00:00: 00 Yes [id number] 10mg Take 1 tablet by mouth at bedtime as needed for Allergies. [facility] Zinc Acetate, Oral, 50 mg (zinc) Cap 02-27 00:00: 00 Yes [id number] 1{tbl} Take 1 tablet by mouth daily. [facility] Magnesium 250 mg Tab 02-27 00:00: 00 Yes [id number] 1{tbl} Take 1 tablet by mouth daily. [facility] calcium carbonate (CALCIUM 500) 500 mg calcium (1,250 mg) tablet 02-27 00:00: 00 Yes [id number] 500mg Take 1 tablet by mouth daily. [facility] cetirizine (ZYRTEC) 10 mg tablet 02-27 00:00: 00 Yes [id number] 10mg Take 1 tablet by mouth at bedtime as needed for Allergies. [facility] Zinc Acetate, Oral, 50 mg (zinc) Cap 02-27 00:00: 00 Yes [id number] 1{tbl} Take 1 tablet by mouth daily. [facility] Magnesium 250 mg Tab 02-27 00:00: 00 Yes [id number] 1{tbl} Take 1 tablet by mouth daily. [facility] calcium carbonate (CALCIUM 500) 500 mg calcium (1,250 mg) tablet 02-27 00:00: 00 Yes [id number] 500mg Take 1 tablet by mouth daily. [facility] cetirizine (ZYRTEC) 10 mg tablet 02-27 00:00: 00 Yes [id number] 10mg Take 1 tablet by mouth at bedtime as needed for Allergies. [facility] Zinc Acetate, Oral, 50 mg (zinc) Cap 02-27 00:00: 00 Yes [id number] 1{tbl} Take 1 tablet by mouth daily. [facility] Magnesium 250 mg Tab 02-27 00:00: 00 Yes [id number] 1{tbl} Take 1 tablet by mouth daily. [facility] calcium carbonate (CALCIUM 500) 500 mg calcium (1,250 mg) tablet 02-27 00:00: 00 Yes [id number] 500mg Take 1 tablet by mouth daily. [facility] cetirizine (ZYRTEC) 10 mg tablet 02-27 00:00: 00 Yes [id number] 10mg Take 1 tablet by mouth at bedtime as needed for Allergies. [facility] Zinc Acetate, Oral, 50 mg (zinc) Cap 02-27 00:00: 00 Yes [id number] 1{tbl} Take 1 tablet by mouth daily. [facility] Magnesium 250 mg Tab 02-27 00:00: 00 Yes [id number] 1{tbl} Take 1 tablet by mouth daily. [facility] calcium carbonate (CALCIUM 500) 500 mg calcium (1,250 mg) tablet 02-27 00:00: 00 Yes [id number] 500mg Take 1 tablet by mouth daily. [facility] cetirizine (ZYRTEC) 10 mg tablet 02-27 00:00: 00 Yes [id number] 10mg Take 1 tablet by mouth at bedtime as needed for Allergies. [facility] Zinc Acetate, Oral, 50 mg (zinc) Cap 02-27 00:00: 00 Yes [id number] 1{tbl} Take 1 tablet by mouth daily. [facility] Magnesium 250 mg Tab 02-27 00:00: 00 Yes [id number] 1{tbl} Take 1 tablet by mouth daily. [facility] calcium carbonate (CALCIUM 500) 500 mg calcium (1,250 mg) tablet 02-27 00:00: 00 Yes [id number] 500mg Take 1 tablet by mouth daily. [facility] cetirizine (ZYRTEC) 10 mg tablet 02-27 00:00: 00 Yes [id number] 10mg Take 1 tablet by mouth at bedtime as needed for Allergies. [facility] Zinc Acetate, Oral, 50 mg (zinc) Cap 02-27 00:00: 00 Yes [id number] 1{tbl} Take 1 tablet by mouth daily. [facility] Magnesium 250 mg Tab 02-27 00:00: 00 Yes [id number] 1{tbl} Take 1 tablet by mouth daily. [facility] calcium carbonate (CALCIUM 500) 500 mg calcium (1,250 mg) tablet 02-27 00:00: 00 Yes [id number] 500mg Take 1 tablet by mouth daily. [facility] cetirizine (ZYRTEC) 10 mg tablet 02-27 00:00: 00 Yes [id number] 10mg Take 1 tablet by mouth at bedtime as needed for Allergies. [facility] Zinc Acetate, Oral, 50 mg (zinc) Cap 02-27 00:00: 00 Yes [id number] 1{tbl} Take 1 tablet by mouth daily. [facility] Magnesium 250 mg Tab 02-27 00:00: 00 Yes [id number] 1{tbl} Take 1 tablet by mouth daily. [facility] calcium carbonate (CALCIUM 500) 500 mg calcium (1,250 mg) tablet 02-27 00:00: 00 Yes [id number] 500mg Take 1 tablet by mouth daily. [facility] cetirizine (ZYRTEC) 10 mg tablet 02-27 00:00: 00 Yes [id number] 10mg Take 1 tablet by mouth at bedtime as needed for Allergies. [facility] Zinc Acetate, Oral, 50 mg (zinc) Cap 02-27 00:00: 00 Yes [id number] 1{tbl} Take 1 tablet by mouth daily. [facility] Magnesium 250 mg Tab 02-27 00:00: 00 Yes [id number] 1{tbl} Take 1 tablet by mouth daily. [facility] calcium carbonate (CALCIUM 500) 500 mg calcium (1,250 mg) tablet 02-27 00:00: 00 Yes [id number] 500mg Take 1 tablet by mouth daily. [facility] cetirizine (ZYRTEC) 10 mg tablet 02-27 00:00: 00 Yes [id number] 10mg Take 1 tablet by mouth at bedtime as needed for Allergies. [facility] Zinc Acetate, Oral, 50 mg (zinc) Cap 02-27 00:00: 00 Yes [id number] 1{tbl} Take 1 tablet by mouth daily. [facility] Magnesium 250 mg Tab 02-27 00:00: 00 Yes [id number] 1{tbl} Take 1 tablet by mouth daily. [facility] calcium carbonate (CALCIUM 500) 500 mg calcium (1,250 mg) tablet 02-27 00:00: 00 Yes [id number] 500mg Take 1 tablet by mouth daily. [facility] cetirizine (ZYRTEC) 10 mg tablet 02-27 00:00: 00 Yes [id number] 10mg Take 1 tablet by mouth at bedtime as needed for Allergies. [facility] Zinc Acetate, Oral, 50 mg (zinc) Cap 02-27 00:00: 00 Yes [id number] 1{tbl} Take 1 tablet by mouth daily. [facility] Magnesium 250 mg Tab 02-27 00:00: 00 Yes [id number] 1{tbl} Take 1 tablet by mouth daily. [facility] calcium carbonate (CALCIUM 500) 500 mg calcium (1,250 mg) tablet 02-27 00:00: 00 Yes [id number] 500mg Take 1 tablet by mouth daily. [facility] cetirizine (ZYRTEC) 10 mg tablet 02-27 00:00: 00 Yes [id number] 10mg Take 1 tablet by mouth at bedtime as needed for Allergies. [facility] Zinc Acetate, Oral, 50 mg (zinc) Cap 02-27 00:00: 00 Yes [id number] 1{tbl} Take 1 tablet by mouth daily. [facility] Magnesium 250 mg Tab 02-27 00:00: 00 Yes [id number] 1{tbl} Take 1 tablet by mouth daily. [facility] calcium carbonate (CALCIUM 500) 500 mg calcium (1,250 mg) tablet 02-27 00:00: 00 Yes [id number] 500mg Take 1 tablet by mouth daily. [facility] cetirizine (ZYRTEC) 10 mg tablet 02-27 00:00: 00 Yes [id number] 10mg Take 1 tablet by mouth at bedtime as needed for Allergies. [facility] Zinc Acetate, Oral, 50 mg (zinc) Cap 02-27 00:00: 00 Yes [id number] 1{tbl} Take 1 tablet by mouth daily. [facility] Magnesium 250 mg Tab 02-27 00:00: 00 Yes [id number] 1{tbl} Take 1 tablet by mouth daily. [facility] calcium carbonate (CALCIUM 500) 500 mg calcium (1,250 mg) tablet 02-27 00:00: 00 Yes [id number] 500mg Take 1 tablet by mouth daily. [facility] cetirizine (ZYRTEC) 10 mg tablet 02-27 00:00: 00 Yes [id number] 10mg Take 1 tablet by mouth at bedtime as needed for Allergies. [facility] Zinc Acetate, Oral, 50 mg (zinc) Cap 02-27 00:00: 00 Yes [id number] 1{tbl} Take 1 tablet by mouth daily. [facility] Magnesium 250 mg Tab 02-27 00:00: 00 Yes [id number] 1{tbl} Take 1 tablet by mouth daily. [facility] calcium carbonate (CALCIUM 500) 500 mg calcium (1,250 mg) tablet 02-27 00:00: 00 Yes [id number] 500mg Take 1 tablet by mouth daily. [facility] cetirizine (ZYRTEC) 10 mg tablet 02-27 00:00: 00 Yes [id number] 10mg Take 1 tablet by mouth at bedtime as needed for Allergies. [facility] Zinc Acetate, Oral, 50 mg (zinc) Cap 02-27 00:00: 00 Yes [id number] 1{tbl} Take 1 tablet by mouth daily. [facility] Magnesium 250 mg Tab 02-27 00:00: 00 Yes [id number] 1{tbl} Take 1 tablet by mouth daily. [facility] calcium carbonate (CALCIUM 500) 500 mg calcium (1,250 mg) tablet 02-27 00:00: 00 Yes [id number] 500mg Take 1 tablet by mouth daily. [facility] cetirizine (ZYRTEC) 10 mg tablet 02-27 00:00: 00 Yes [id number] 10mg Take 1 tablet by mouth at bedtime as needed for Allergies. [facility] Zinc Acetate, Oral, 50 mg (zinc) Cap 02-27 00:00: 00 Yes [id number] 1{tbl} Take 1 tablet by mouth daily. [facility] Magnesium 250 mg Tab 02-27 00:00: 00 Yes [id number] 1{tbl} Take 1 tablet by mouth daily. [facility] calcium carbonate (CALCIUM 500) 500 mg calcium (1,250 mg) tablet 02-27 00:00: 00 Yes [id number] 500mg Take 1 tablet by mouth daily. [facility] cetirizine (ZYRTEC) 10 mg tablet 02-27 00:00: 00 Yes [id number] 10mg Take 1 tablet by mouth at bedtime as needed for Allergies. [facility] Zinc Acetate, Oral, 50 mg (zinc) Cap 02-27 00:00: 00 Yes [id number] 1{tbl} Take 1 tablet by mouth daily. [facility] Magnesium 250 mg Tab 02-27 00:00: 00 Yes [id number] 1{tbl} Take 1 tablet by mouth daily. [facility] calcium carbonate (CALCIUM 500) 500 mg calcium (1,250 mg) tablet 02-27 00:00: 00 Yes [id number] 500mg Take 1 tablet by mouth daily. [facility] cetirizine (ZYRTEC) 10 mg tablet 02-27 00:00: 00 Yes [id number] 10mg Take 1 tablet by mouth at bedtime as needed for Allergies. [facility] Zinc Acetate, Oral, 50 mg (zinc) Cap 02-27 00:00: 00 Yes [id number] 1{tbl} Take 1 tablet by mouth daily. [facility] Magnesium 250 mg Tab 02-27 00:00: 00 Yes [id number] 1{tbl} Take 1 tablet by mouth daily. [facility] calcium carbonate (CALCIUM 500) 500 mg calcium (1,250 mg) tablet 02-27 00:00: 00 Yes [id number] 500mg Take 1 tablet by mouth daily. [facility] cetirizine (ZYRTEC) 10 mg tablet 02-27 00:00: 00 Yes [id number] 10mg Take 1 tablet by mouth at bedtime as needed for Allergies. [facility] Zinc Acetate, Oral, 50 mg (zinc) Cap 02-27 00:00: 00 Yes [id number] 1{tbl} Take 1 tablet by mouth daily. [facility] Magnesium 250 mg Tab 02-27 00:00: 00 Yes [id number] 1{tbl} Take 1 tablet by mouth daily. [facility] calcium carbonate (CALCIUM 500) 500 mg calcium (1,250 mg) tablet 02-27 00:00: 00 Yes [id number] 500mg Take 1 tablet by mouth daily. [facility] cetirizine (ZYRTEC) 10 mg tablet 02-27 00:00: 00 Yes [id number] 10mg Take 1 tablet by mouth at bedtime as needed for Allergies. [facility] Zinc Acetate, Oral, 50 mg (zinc) Cap 02-27 00:00: 00 Yes [id number] 1{tbl} Take 1 tablet by mouth daily. [facility] Magnesium 250 mg Tab 02-27 00:00: 00 Yes [id number] 1{tbl} Take 1 tablet by mouth daily. [facility] calcium carbonate (CALCIUM 500) 500 mg calcium (1,250 mg) tablet 02-27 00:00: 00 Yes [id number] 500mg Take 1 tablet by mouth daily. [facility] cetirizine (ZYRTEC) 10 mg tablet 02-27 00:00: 00 Yes [id number] 10mg Take 1 tablet by mouth at bedtime as needed for Allergies. [facility] Zinc Acetate, Oral, 50 mg (zinc) Cap 02-27 00:00: 00 Yes [id number] 1{tbl} Take 1 tablet by mouth daily. [facility] Magnesium 250 mg Tab 02-27 00:00: 00 Yes [id number] 1{tbl} Take 1 tablet by mouth daily. [facility] calcium carbonate (CALCIUM 500) 500 mg calcium (1,250 mg) tablet 02-27 00:00: 00 Yes [id number] 500mg Take 1 tablet by mouth daily. [facility] cetirizine (ZYRTEC) 10 mg tablet 02-27 00:00: 00 Yes [id number] 10mg Take 1 tablet by mouth at bedtime as needed for Allergies. [facility] Zinc Acetate, Oral, 50 mg (zinc) Cap 02-27 00:00: 00 Yes [id number] 1{tbl} Take 1 tablet by mouth daily. [facility] Magnesium 250 mg Tab 02-27 00:00: 00 Yes [id number] 1{tbl} Take 1 tablet by mouth daily. [facility] calcium carbonate (CALCIUM 500) 500 mg calcium (1,250 mg) tablet 02-27 00:00: 00 Yes [id number] 500mg Take 1 tablet by mouth daily. [facility] cetirizine (ZYRTEC) 10 mg tablet 02-27 00:00: 00 Yes [id number] 10mg Take 1 tablet by mouth at bedtime as needed for Allergies. [facility] Zinc Acetate, Oral, 50 mg (zinc) Cap 02-27 00:00: 00 Yes [id number] 1{tbl} Take 1 tablet by mouth daily. [facility] Magnesium 250 mg Tab 02-27 00:00: 00 Yes [id number] 1{tbl} Take 1 tablet by mouth daily. [facility] calcium carbonate (CALCIUM 500) 500 mg calcium (1,250 mg) tablet 02-27 00:00: 00 Yes [id number] 500mg Take 1 tablet by mouth daily. [facility] cetirizine (ZYRTEC) 10 mg tablet 02-27 00:00: 00 Yes [id number] 10mg Take 1 tablet by mouth at bedtime as needed for Allergies. [facility] Zinc Acetate, Oral, 50 mg (zinc) Cap 02-27 00:00: 00 Yes [id number] 1{tbl} Take 1 tablet by mouth daily. [facility] Magnesium 250 mg Tab 02-27 00:00: 00 Yes [id number] 1{tbl} Take 1 tablet by mouth daily. [facility] calcium carbonate (CALCIUM 500) 500 mg calcium (1,250 mg) tablet 02-27 00:00: 00 Yes [id number] 500mg Take 1 tablet by mouth daily. [facility] cetirizine (ZYRTEC) 10 mg tablet 02-27 00:00: 00 Yes [id number] 10mg Take 1 tablet by mouth at bedtime as needed for Allergies. [facility] Zinc Acetate, Oral, 50 mg (zinc) Cap 02-27 00:00: 00 Yes [id number] 1{tbl} Take 1 tablet by mouth daily. [facility] Magnesium 250 mg Tab 02-27 00:00: 00 Yes [id number] 1{tbl} Take 1 tablet by mouth daily. [facility] calcium carbonate (CALCIUM 500) 500 mg calcium (1,250 mg) tablet 02-27 00:00: 00 Yes [id number] 500mg Take 1 tablet by mouth daily. [facility] cetirizine (ZYRTEC) 10 mg tablet 02-27 00:00: 00 Yes [id number] 10mg Take 1 tablet by mouth at bedtime as needed for Allergies. [facility] Zinc Acetate, Oral, 50 mg (zinc) Cap 02-27 00:00: 00 Yes [id number] 1{tbl} Take 1 tablet by mouth daily. [facility] Magnesium 250 mg Tab 02-27 00:00: 00 Yes [id number] 1{tbl} Take 1 tablet by mouth daily. [facility] calcium carbonate (CALCIUM 500) 500 mg calcium (1,250 mg) tablet 02-27 00:00: 00 Yes [id number] 500mg Take 1 tablet by mouth daily. [facility] cetirizine (ZYRTEC) 10 mg tablet 02-27 00:00: 00 Yes [id number] 10mg Take 1 tablet by mouth at bedtime as needed for Allergies. [facility] Zinc Acetate, Oral, 50 mg (zinc) Cap 02-27 00:00: 00 Yes [id number] 1{tbl} Take 1 tablet by mouth daily. [facility] Magnesium 250 mg Tab 02-27 00:00: 00 Yes [id number] 1{tbl} Take 1 tablet by mouth daily. [facility] calcium carbonate (CALCIUM 500) 500 mg calcium (1,250 mg) tablet 02-27 00:00: 00 Yes [id number] 500mg Take 1 tablet by mouth daily. [facility] cetirizine (ZYRTEC) 10 mg tablet 02-27 00:00: 00 Yes [id number] 10mg Take 1 tablet by mouth at bedtime as needed for Allergies. [facility] Zinc Acetate, Oral, 50 mg (zinc) Cap 02-27 00:00: 00 Yes [id number] 1{tbl} Take 1 tablet by mouth daily. [facility] Magnesium 250 mg Tab 02-27 00:00: 00 Yes [id number] 1{tbl} Take 1 tablet by mouth daily. [facility] calcium carbonate (CALCIUM 500) 500 mg calcium (1,250 mg) tablet 02-27 00:00: 00 Yes [id number] 500mg Take 1 tablet by mouth daily. [facility] cetirizine (ZYRTEC) 10 mg tablet 02-27 00:00: 00 Yes [id number] 10mg Take 1 tablet by mouth at bedtime as needed for Allergies. [facility] Zinc Acetate, Oral, 50 mg (zinc) Cap 02-27 00:00: 00 Yes [id number] 1{tbl} Take 1 tablet by mouth daily. [facility] Magnesium 250 mg Tab 02-27 00:00: 00 Yes [id number] 1{tbl} Take 1 tablet by mouth daily. [facility] calcium carbonate (CALCIUM 500) 500 mg calcium (1,250 mg) tablet 02-27 00:00: 00 Yes [id number] 500mg Take 1 tablet by mouth daily. [facility] cetirizine (ZYRTEC) 10 mg tablet 02-27 00:00: 00 Yes [id number] 10mg Take 1 tablet by mouth at bedtime as needed for Allergies. [facility] Zinc Acetate, Oral, 50 mg (zinc) Cap 02-27 00:00: 00 Yes [id number] 1{tbl} Take 1 tablet by mouth daily. [facility] Magnesium 250 mg Tab 02-27 00:00: 00 Yes [id number] 1{tbl} Take 1 tablet by mouth daily. [facility] calcium carbonate (CALCIUM 500) 500 mg calcium (1,250 mg) tablet 02-27 00:00: 00 Yes [id number] 500mg Take 1 tablet by mouth daily. [facility] cetirizine (ZYRTEC) 10 mg tablet 02-27 00:00: 00 Yes [id number] 10mg Take 1 tablet by mouth at bedtime as needed for Allergies. [facility] Zinc Acetate, Oral, 50 mg (zinc) Cap 02-27 00:00: 00 Yes [id number] 1{tbl} Take 1 tablet by mouth daily. [facility] Magnesium 250 mg Tab 02-27 00:00: 00 Yes [id number] 1{tbl} Take 1 tablet by mouth daily. [facility] calcium carbonate (CALCIUM 500) 500 mg calcium (1,250 mg) tablet 02-27 00:00: 00 Yes [id number] 500mg Take 1 tablet by mouth daily. [facility] cetirizine (ZYRTEC) 10 mg tablet 02-27 00:00: 00 Yes [id number] 10mg Take 1 tablet by mouth at bedtime as needed for Allergies. [facility] Zinc Acetate, Oral, 50 mg (zinc) Cap 02-27 00:00: 00 Yes [id number] 1{tbl} Take 1 tablet by mouth daily. [facility] Magnesium 250 mg Tab 02-27 00:00: 00 Yes [id number] 1{tbl} Take 1 tablet by mouth daily. [facility] calcium carbonate (CALCIUM 500) 500 mg calcium (1,250 mg) tablet 02-27 00:00: 00 Yes [id number] 500mg Take 1 tablet by mouth daily. [facility] cetirizine (ZYRTEC) 10 mg tablet 02-27 00:00: 00 Yes [id number] 10mg Take 1 tablet by mouth at bedtime as needed for Allergies. [facility] Zinc Acetate, Oral, 50 mg (zinc) Cap 02-27 00:00: 00 Yes [id number] 1{tbl} Take 1 tablet by mouth daily. [facility] Magnesium 250 mg Tab 02-27 00:00: 00 Yes [id number] 1{tbl} Take 1 tablet by mouth daily. [facility] calcium carbonate (CALCIUM 500) 500 mg calcium (1,250 mg) tablet 02-27 00:00: 00 Yes [id number] 500mg Take 1 tablet by mouth daily. [facility] cetirizine (ZYRTEC) 10 mg tablet 02-27 00:00: 00 Yes [id number] 10mg Take 1 tablet by mouth at bedtime as needed for Allergies. [facility] Zinc Acetate, Oral, 50 mg (zinc) Cap 02-27 00:00: 00 Yes [id number] 1{tbl} Take 1 tablet by mouth daily. [facility] Magnesium 250 mg Tab 02-27 00:00: 00 Yes [id number] 1{tbl} Take 1 tablet by mouth daily. [facility] calcium carbonate (CALCIUM 500) 500 mg calcium (1,250 mg) tablet 02-27 00:00: 00 Yes [id number] 500mg Take 1 tablet by mouth daily. [facility] cetirizine (ZYRTEC) 10 mg tablet 02-27 00:00: 00 Yes [id number] 10mg Take 1 tablet by mouth at bedtime as needed for Allergies. [facility] Zinc Acetate, Oral, 50 mg (zinc) Cap 02-27 00:00: 00 Yes [id number] 1{tbl} Take 1 tablet by mouth daily. [facility] Magnesium 250 mg Tab 02-27 00:00: 00 Yes [id number] 1{tbl} Take 1 tablet by mouth daily. [facility] calcium carbonate (CALCIUM 500) 500 mg calcium (1,250 mg) tablet 02-27 00:00: 00 Yes [id number] 500mg Take 1 tablet by mouth daily. [facility] cetirizine (ZYRTEC) 10 mg tablet 02-27 00:00: 00 Yes [id number] 10mg Take 1 tablet by mouth at bedtime as needed for Allergies. [facility] Zinc Acetate, Oral, 50 mg (zinc) Cap 02-27 00:00: 00 Yes [id number] 1{tbl} Take 1 tablet by mouth daily. [facility] Magnesium 250 mg Tab 02-27 00:00: 00 Yes [id number] 1{tbl} Take 1 tablet by mouth daily. [facility] calcium carbonate (CALCIUM 500) 500 mg calcium (1,250 mg) tablet 02-27 00:00: 00 Yes [id number] 500mg Take 1 tablet by mouth daily. [facility] cetirizine (ZYRTEC) 10 mg tablet 02-27 00:00: 00 Yes [id number] 10mg Take 1 tablet by mouth at bedtime as needed for Allergies. [facility] Zinc Acetate, Oral, 50 mg (zinc) Cap 02-27 00:00: 00 Yes [id number] 1{tbl} Take 1 tablet by mouth daily. [facility] Magnesium 250 mg Tab 02-27 00:00: 00 Yes [id number] 1{tbl} Take 1 tablet by mouth daily. [facility] calcium carbonate (CALCIUM 500) 500 mg calcium (1,250 mg) tablet 02-27 00:00: 00 Yes [id number] 500mg Take 1 tablet by mouth daily. [facility] cetirizine (ZYRTEC) 10 mg tablet 02-27 00:00: 00 Yes [id number] 10mg Take 1 tablet by mouth at bedtime as needed for Allergies. [facility] Zinc Acetate, Oral, 50 mg (zinc) Cap 02-27 00:00: 00 Yes [id number] 1{tbl} Take 1 tablet by mouth daily. [facility] Magnesium 250 mg Tab 02-27 00:00: 00 Yes [id number] 1{tbl} Take 1 tablet by mouth daily. [facility] calcium carbonate (CALCIUM 500) 500 mg calcium (1,250 mg) tablet 02-27 00:00: 00 Yes [id number] 500mg Take 1 tablet by mouth daily. [facility] cetirizine (ZYRTEC) 10 mg tablet 02-27 00:00: 00 Yes [id number] 10mg Take 1 tablet by mouth at bedtime as needed for Allergies. [facility] Zinc Acetate, Oral, 50 mg (zinc) Cap 02-27 00:00: 00 Yes [id number] 1{tbl} Take 1 tablet by mouth daily. [facility] Magnesium 250 mg Tab 02-27 00:00: 00 Yes [id number] 1{tbl} Take 1 tablet by mouth daily. [facility] calcium carbonate (CALCIUM 500) 500 mg calcium (1,250 mg) tablet 02-27 00:00: 00 Yes [id number] 500mg Take 1 tablet by mouth daily. [facility] cetirizine (ZYRTEC) 10 mg tablet 02-27 00:00: 00 Yes [id number] 10mg Take 1 tablet by mouth at bedtime as needed for Allergies. [facility] Zinc Acetate, Oral, 50 mg (zinc) Cap 02-27 00:00: 00 Yes [id number] 1{tbl} Take 1 tablet by mouth daily. [facility] Magnesium 250 mg Tab 02-27 00:00: 00 Yes [id number] 1{tbl} Take 1 tablet by mouth daily. [facility] calcium carbonate (CALCIUM 500) 500 mg calcium (1,250 mg) tablet 02-27 00:00: 00 Yes [id number] 500mg Take 1 tablet by mouth daily. [facility] cetirizine (ZYRTEC) 10 mg tablet 02-27 00:00: 00 Yes [id number] 10mg Take 1 tablet by mouth at bedtime as needed for Allergies. [facility] Zinc Acetate, Oral, 50 mg (zinc) Cap 02-27 00:00: 00 Yes [id number] 1{tbl} Take 1 tablet by mouth daily. [facility] Magnesium 250 mg Tab 02-27 00:00: 00 Yes [id number] 1{tbl} Take 1 tablet by mouth daily. [facility] calcium carbonate (CALCIUM 500) 500 mg calcium (1,250 mg) tablet 02-27 00:00: 00 Yes [id number] 500mg Take 1 tablet by mouth daily. [facility] cetirizine (ZYRTEC) 10 mg tablet 02-27 00:00: 00 Yes [id number] 10mg Take 1 tablet by mouth at bedtime as needed for Allergies. [facility] Zinc Acetate, Oral, 50 mg (zinc) Cap 02-27 00:00: 00 Yes [id number] 1{tbl} Take 1 tablet by mouth daily. [facility] Magnesium 250 mg Tab 02-27 00:00: 00 Yes [id number] 1{tbl} Take 1 tablet by mouth daily. [facility] calcium carbonate (CALCIUM 500) 500 mg calcium (1,250 mg) tablet 02-27 00:00: 00 Yes [id number] 500mg Take 1 tablet by mouth daily. [facility] cetirizine (ZYRTEC) 10 mg tablet 02-27 00:00: 00 Yes [id number] 10mg Take 1 tablet by mouth at bedtime as needed for Allergies. [facility] Zinc Acetate, Oral, 50 mg (zinc) Cap 02-27 00:00: 00 Yes [id number] 1{tbl} Take 1 tablet by mouth daily. [facility] Magnesium 250 mg Tab 02-27 00:00: 00 Yes [id number] 1{tbl} Take 1 tablet by mouth daily. [facility] calcium carbonate (CALCIUM 500) 500 mg calcium (1,250 mg) tablet 02-27 00:00: 00 Yes [id number] 500mg Take 1 tablet by mouth daily. [facility] phentermine 30 mg capsule 11-28 00:00: 00 05-07 00:00 :00 No [id number] 104 30mg Take 1 capsule by mouth every morning. [facility] Immunizations Ordered Immunization Name Filled Immunization Name Date Status Comments Source Influenza Virus Vaccine,quad Im,preserve Free 2022-05-23 00:00:[address] [facility] [place], [place] Pneumococcal 20 Conjugate, PCV20 (Prevnar 20) 2022-05-23 00:00:[address] [facility] [place] Influenza Virus Vaccine,quad Im,preserve Free 2022-05-23 00:00:[address] [facility] [place] Pneumococcal 20 Conjugate, PCV20 (Prevnar 20) 2022-05-23 00:00:[address] [facility] [place] Influenza Virus Vaccine,quad Im,preserve Free 2022-05-23 00:00:[address] [facility] [place] Pneumococcal 20 Conjugate, PCV20 (Prevnar 20) 2022-05-23 00:00:[address] [facility] [place] Influenza Virus Vaccine,quad Im,preserve Free 2022-05-23 00:00:[address] [facility] [place] Pneumococcal 20 Conjugate, PCV20 (Prevnar 20) 2022-05-23 00:00:[address] [facility] [place] Influenza Virus Vaccine,quad Im,preserve Free 2022-05-23 00:00:[address] [facility] [place] Pneumococcal 20 Conjugate, PCV20 (Prevnar 20) 2022-05-23 00:00:[address] [facility] [place] Influenza Virus Vaccine,quad Im,preserve Free 2022-05-23 00:00:[address] [facility] [place] Pneumococcal 20 Conjugate, PCV20 (Prevnar 20) 2022-05-23 00:00:[address] [facility] [place] Influenza Virus Vaccine,quad Im,preserve Free 2022-05-23 00:00:[address] [facility] [place] Pneumococcal 20 Conjugate, PCV20 (Prevnar 20) 2022-05-23 00:00:[address] [facility] [place] Influenza Virus Vaccine,quad Im,preserve Free 2022-05-23 00:00:[address] [facility] [place] Pneumococcal 20 Conjugate, PCV20 (Prevnar 20) 2022-05-23 00:00:[address] [facility] [place] Influenza Virus Vaccine,quad Im,preserve Free 65+ 2022-05-23 00:00:[address] [facility] [place] Pneumococcal 20 Conjugate, PCV20 (Prevnar 20) 2022-05-23 00:00:[address] [facility] [place] Influenza Virus Vaccine,quad Im,preserve Free 2022-05-23 00:00:[address] [facility] [place] Pneumococcal 20 Conjugate, PCV20 (Prevnar 20) 2022-05-23 00:00:[address] [facility] [place] Influenza Virus Vaccine,quad Im,preserve Free 2022-05-23 00:00:[address] [facility] [place] Pneumococcal 20 Conjugate, PCV20 (Prevnar 20) 2022-05-23 00:00:[address] [facility] [place] Influenza Virus Vaccine,quad Im,preserve Free 2022-05-23 00:00:[address] [facility] [place] Pneumococcal 20 Conjugate, PCV20 (Prevnar 20) 2022-05-23 00:00:[address] [facility] [place] Influenza Virus Vaccine,quad Im,preserve Free 2022-05-23 00:00:[address] [facility] [place] Pneumococcal 20 Conjugate, PCV20 (Prevnar 20) 2022-05-23 00:00:[address] [facility] [place] Influenza Virus Vaccine,quad Im,preserve Free 2022-05-23 00:00:[address] [facility] [place] Pneumococcal 20 Conjugate, PCV20 (Prevnar 20) 2022-05-23 00:00:[address] [facility] [place] Influenza Virus Vaccine,quad Im,preserve Free 2022-05-23 00:00:[address] [facility] [place] Pneumococcal 20 Conjugate, PCV20 (Prevnar 20) 2022-05-23 00:00:[address] [facility] [place] Influenza Virus Vaccine,quad Im,preserve Free 2022-05-23 00:00:[address] [facility] [place] Pneumococcal 20 Conjugate, PCV20 (Prevnar 20) 2022-05-23 00:00:[address] [facility] [place] Influenza Virus Vaccine,quad Im,preserve Free 65+ 2022-05-23 00:00:[address] [facility] [place] Pneumococcal 20 Conjugate, PCV20 (Prevnar 20) 2022-05-23 00:00:[address] [facility] [place] Influenza Virus Vaccine,quad Im,preserve Free 65+ 2022-05-23 00:00:[address] [facility] [place] Pneumococcal 20 Conjugate, PCV20 (Prevnar 20) 2022-05-23 00:00:[address] [facility] [place] Influenza Virus Vaccine,quad Im,preserve Free 65+ 2022-05-23 00:00:[address] [facility] [place] Pneumococcal 20 Conjugate, PCV20 (Prevnar 20) 2022-05-23 00:00:[address] [facility] [place] Influenza Virus Vaccine,quad Im,preserve Free 652022-05-23 00:00:[address] [facility] [place] Pneumococcal 20 Conjugate, PCV20 (Prevnar 20) 2022-05-23 00:00:[address] [facility] [place] Influenza Virus Vaccine,quad Im,preserve Free 2022-05-23 00:00:[address] [facility] [place] Pneumococcal 20 Conjugate, PCV20 (Prevnar 20) 2022-05-23 00:00:[address] [facility] [place] Influenza Virus Vaccine,quad Im,preserve Free 2022-05-23 00:00:[address] [facility] [place] Pneumococcal 20 Conjugate, PCV20 (Prevnar 20) 2022-05-23 00:00:[address] [facility] [place] Influenza Virus Vaccine,quad Im,preserve Free 2022-05-23 00:00:[address] [facility] [place] Pneumococcal 20 Conjugate, PCV20 (Prevnar 20) 2022-05-23 00:00:[address] [facility] [place] Influenza Virus Vaccine,quad Im,preserve Free 2022-05-23 00:00:[address] [facility] [place] Pneumococcal 20 Conjugate, PCV20 (Prevnar 20) 2022-05-23 00:00:[address] [facility] [place] Influenza Virus Vaccine,quad Im,preserve Free 652022-05-23 00:00:[address] [facility] [place] Pneumococcal 20 Conjugate, PCV20 (Prevnar 20) 2022-05-23 00:00:[address] [facility] – [place], [place] Influenza Virus Vaccine,quad Im,preserve Free 65+ 2022-05-23 00:00:[address] [facility] [place] Pneumococcal 20 Conjugate, PCV20 (Prevnar 20) 2022-05-23 00:00:[address] [facility] [place] Influenza Virus Vaccine,quad Im,preserve Free 65+ 2022-05-23 00:00:[address] [facility] [place] Pneumococcal 20 Conjugate, PCV20 (Prevnar 20) 2022-05-23 00:00:[address] [facility] [place] Influenza Virus Vaccine,quad Im,preserve Free 65+ 2022-05-23 00:00:[address] [facility] [place] Pneumococcal 20 Conjugate, PCV20 (Prevnar 20) 2022-05-23 00:00:[address] [facility] [place] Influenza Virus Vaccine,quad Im,preserve Free + 2022-05-23 00:00:[address] [facility] [place] Pneumococcal 20 Conjugate, PCV20 (Prevnar 20) 2022-05-23 00:00:[address] [facility] [place] Influenza Virus Vaccine,quad Im,preserve Free 2022-05-23 00:00:[address] [facility] [place] Pneumococcal 20 Conjugate, PCV20 (Prevnar 20) 2022-05-23 00:00:[address] [facility] [place] Influenza Virus Vaccine,quad Im,preserve Free 2022-05-23 00:00:[address] [facility] [place] Pneumococcal 20 Conjugate, PCV20 (Prevnar 20) 2022-05-23 00:00:[address] [facility] [place] Influenza Virus Vaccine,quad Im,preserve Free 2022-05-23 00:00:[address] [facility] [place] Pneumococcal 20 Conjugate, PCV20 (Prevnar 20) 2022-05-23 00:00:[address] [facility] [place] Influenza Virus Vaccine,quad Im,preserve Free 2022-05-23 00:00:[address] [facility] [place] Pneumococcal 20 Conjugate, PCV20 (Prevnar 20) 2022-05-23 00:00:[address] [facility] [place] Influenza Virus Vaccine,quad Im,preserve Free 2022-05-23 00:00:[address] [facility] [place] Pneumococcal 20 Conjugate, PCV20 (Prevnar 20) 2022-05-23 00:00:[address] [facility] [place] Influenza Virus Vaccine,quad Im,preserve Free 65+ 2022-05-23 00:00:[address] [facility] [place] Pneumococcal 20 Conjugate, PCV20 (Prevnar 20) 2022-05-23 00:00:[address] [facility] [place] Influenza Virus Vaccine,quad Im,preserve Free 65+ 2022-05-23 00:00:[address] [facility] [place] Pneumococcal 20 Conjugate, PCV20 (Prevnar 20) 2022-05-23 00:00:[address] [facility] [place] Influenza Virus Vaccine,quad Im,preserve Free 65+ 2022-05-23 00:00:[address] [facility] [place] Pneumococcal 20 Conjugate, PCV20 (Prevnar 20) 2022-05-23 00:00:[address] [facility] [place] Influenza Virus Vaccine,quad Im,preserve Free 65+ 2022-05-23 00:00:[address] [facility] [place] Pneumococcal 20 Conjugate, PCV20 (Prevnar 20) 2022-05-23 00:00:[address] [facility] [place] Influenza Virus Vaccine,quad Im,preserve Free 65+ 2022-05-23 00:00:[address] [facility] [place] Pneumococcal 20 Conjugate, PCV20 (Prevnar 20) 2022-05-23 00:00:[address] [facility] [place] Influenza Virus Vaccine,quad Im,preserve Free 65+ 2022-05-23 00:00:[address] [facility] [place] Pneumococcal 20 Conjugate, PCV20 (Prevnar 20) 2022-05-23 00:00:[address] [facility] [place] Influenza Virus Vaccine,quad Im,preserve Free 65+ 2022-05-23 00:00:[address] [facility] [place] Pneumococcal 20 Conjugate, PCV20 (Prevnar 20) 2022-05-23 00:00:[address] [facility] [place] Influenza Virus Vaccine,quad Im,preserve Free 65+ 2022-05-23 00:00:[address] [facility] [place] Pneumococcal 20 Conjugate, PCV20 (Prevnar 20) 2022-05-23 00:00:[address] [facility] [place] Influenza Virus Vaccine,quad Im,preserve Free 65+ (FLUAD) 2022-05-23 00:00:[address] [facility] [place] Pneumococcal 20 Conjugate, PCV20 (Prevnar 20) 2022-05-23 00:00:[address] [facility] [place] Influenza Virus Vaccine,quad Im,preserve Free 65+ (FLUAD) 2022-05-23 00:00:[address] [facility] [place] Pneumococcal 20 Conjugate, PCV20 (Prevnar 20) 2022-05-23 00:00:[address] [facility] [place] Influenza Virus Vaccine,quad Im,preserve Free 65+ (FLUAD) 2022-05-23 00:00:[address] [facility] [place] Pneumococcal 20 Conjugate, PCV20 (Prevnar 20) 2022-05-23 00:00:[address] [facility] [place] Influenza Virus Vaccine,quad Im,preserve Free 65+ (FLUAD) 2022-05-23 00:00:[address] [facility] [place] Pneumococcal 20 Conjugate, PCV20 (Prevnar 20) 2022-05-23 00:00:[address] [facility] [place] SARS-COV-2 COVID-19 MODERNA BOOSTER VACCINE 2021-06-04 00:00:[address] [facility] [place] SARS-COV-2 COVID-19 MODERNA BOOSTER VACCINE 2021-06-04 00:00:[address] [facility] [place] SARS-COV-2 COVID-19 MODERNA BOOSTER VACCINE 2021-06-04 00:00:[address] [facility] [place] SARS-COV-2 COVID-19 MODERNA BOOSTER VACCINE 2021-06-04 00:00:[address] [facility] [place] SARS-COV-2 COVID-19 MODERNA BOOSTER VACCINE 2021-06-04 00:00:[address] [facility] [place] SARS-COV-2 COVID-19 MODERNA 0.25ML BOOSTER VACCINE 2021-06-04 00:00:[address] [facility] [place] SARS-COV-2 COVID-19 MODERNA 0.25ML BOOSTER VACCINE 2021-06-04 00:00:[address] [facility] [place] SARS-COV-2 COVID-19 MODERNA 0.25ML BOOSTER VACCINE 2021-06-04 00:00:[address] [facility] [place] SARS-COV-2 COVID-19 MODERNA 0.25ML BOOSTER VACCINE 2021-06-04 00:00:[address] [facility] [place] SARS-COV-2 COVID-19 MODERNA 0.25ML BOOSTER VACCINE 2021-06-04 00:00:[address] [facility] [place] SARS-COV-2 COVID-19 MODERNA 0.25ML BOOSTER VACCINE 2021-06-04 00:00:[address] [facility] [place] SARS-COV-2 COVID-19 MODERNA 0.25ML BOOSTER VACCINE 2021-06-04 00:00:[address] [facility] [place] SARS-COV-2 COVID-19 MODERNA 0.25ML BOOSTER VACCINE 2021-06-04 00:00:[address] [facility] [place] SARS-COV-2 COVID-19 MODERNA 0.25ML BOOSTER VACCINE 2021-06-04 00:00:[address] [facility] [place] SARS-COV-2 COVID-19 MODERNA 0.25ML BOOSTER VACCINE 2021-06-04 00:00:[address] [facility] [place] SARS-COV-2 COVID-19 MODERNA 0.25ML BOOSTER VACCINE 2021-06-04 00:00:[address] [facility] [place] SARS-COV-2 COVID-19 MODERNA 0.25ML BOOSTER VACCINE 2021-06-04 00:00:[address] [facility] [place] SARS-COV-2 COVID-19 MODERNA 0.25ML BOOSTER VACCINE 2021-06-04 00:00:[address] [facility] [place] SARS-COV-2 COVID-19 MODERNA 0.25ML BOOSTER VACCINE 2021-06-04 00:00:[address] [facility] [place] SARS-COV-2 COVID-19 MODERNA 0.25ML BOOSTER VACCINE 2021-06-04 00:00:[address] [facility] [place] SARS-COV-2 COVID-19 MODERNA 0.25ML BOOSTER VACCINE 2021-06-04 00:00:[address] [facility] [place] SARS-COV-2 COVID-19 MODERNA 0.25ML BOOSTER VACCINE 2021-06-04 00:00:[address] [facility] [place] SARS-COV-2 COVID-19 MODERNA 0.25ML BOOSTER VACCINE 2021-06-04 00:00:[address] [facility] [place] SARS-COV-2 COVID-19 MODERNA 0.25ML BOOSTER VACCINE 2021-06-04 00:00:[address] [facility] [place] SARS-COV-2 COVID-19 MODERNA 0.25ML BOOSTER VACCINE 2021-06-04 00:00:[address] [facility] [place] SARS-COV-2 COVID-19 MODERNA 0.25ML BOOSTER VACCINE 2021-06-04 00:00:[address] [facility] [place] SARS-COV-2 COVID-19 MODERNA 0.25ML BOOSTER VACCINE 2021-06-04 00:00:[address] [facility] [place] SARS-COV-2 COVID-19 MODERNA 0.25ML BOOSTER VACCINE 2021-06-04 00:00:[address] [facility] [place] SARS-COV-2 COVID-19 MODERNA 0.25ML BOOSTER VACCINE 2021-06-04 00:00:[address] [facility] [place] SARS-COV-2 COVID-19 MODERNA 0.25ML BOOSTER VACCINE 2021-06-04 00:00:[address] [facility] [place] SARS-COV-2 COVID-19 MODERNA 0.25ML BOOSTER VACCINE 2021-06-04 00:00:[address] [facility] [place] SARS-COV-2 COVID-19 MODERNA 0.25ML BOOSTER VACCINE 2021-06-04 00:00:[address] [facility] [place] SARS-COV-2 COVID-19 MODERNA 0.25ML BOOSTER VACCINE 2021-06-04 00:00:[address] [facility] [place] SARS-COV-2 COVID-19 MODERNA 0.25ML BOOSTER VACCINE 2021-06-04 00:00:[address] [facility] [place] SARS-COV-2 COVID-19 MODERNA 0.25ML BOOSTER VACCINE 2021-06-04 00:00:[address] [facility] [place] SARS-COV-2 COVID-19 MODERNA 0.25ML BOOSTER VACCINE 2021-06-04 00:00:[address] [facility] [place] SARS-COV-2 COVID-19 MODERNA 0.25ML BOOSTER VACCINE 2021-06-04 00:00:[address] [facility] [place] SARS-COV-2 COVID-19 MODERNA 0.25ML BOOSTER VACCINE 2021-06-04 00:00:[address] [facility] [place] SARS-COV-2 COVID-19 MODERNA 0.25ML BOOSTER VACCINE 2021-06-04 00:00:[address] [facility] [place] SARS-COV-2 COVID-19 MODERNA 0.25ML BOOSTER VACCINE 2021-06-04 00:00:[address] [facility] [place] SARS-COV-2 COVID-19 MODERNA 0.25ML BOOSTER VACCINE 2021-06-04 00:00:[address] [facility] [place] SARS-COV-2 COVID-19 MODERNA 0.25ML BOOSTER VACCINE 2021-06-04 00:00:[address] [facility] [place] SARS-COV-2 COVID-19 MODERNA 0.25ML BOOSTER VACCINE 2021-06-04 00:00:[address] [facility] [place] SARS-COV-2 COVID-19 MODERNA 0.25ML BOOSTER VACCINE 2021-06-04 00:00:[address] [facility] [place] SARS-COV-2 COVID-19 MODERNA 0.25ML BOOSTER VACCINE 2021-06-04 00:00:[address] [facility] [place] SARS-COV-2 COVID-19 MODERNA 0.25ML BOOSTER VACCINE 2021-06-04 00:00:[address] [facility] [place] SARS-COV-2 COVID-19 MODERNA 0.25ML BOOSTER VACCINE 2021-06-04 00:00:[address] [facility] [place] SARS-COV-2 COVID-19 MODERNA 0.25ML BOOSTER VACCINE 2021-06-04 00:00:[address] [facility] [place] SARS-COV-2 COVID-19 MODERNA 0.25ML BOOSTER VACCINE 2021-06-04 00:00:[address] [facility] [place] SARS-COV-2 COVID-19 MODERNA 0.25ML BOOSTER VACCINE 2021-06-04 00:00:[address] [facility] [place] SARS-COV-2 COVID-19 MODERNA 0.25ML BOOSTER VACCINE 2021-06-04 00:00:[address] [facility] [place] SARS-COV-2 COVID-19 MODERNA 0.25ML BOOSTER VACCINE 2021-06-04 00:00:[address] [facility] [place] SARS-COV-2 COVID-19 MODERNA 0.25ML BOOSTER VACCINE 2021-06-04 00:00:[address] [facility] [place] Influenza High Dose Quad 2021-05-07 00:00:[address] [facility] [place] Pneumococcal Polysaccharide, PPSV23 (PNEUMOVAX) 2021-05-07 00:00:[address] [facility] [place] Influenza High Dose Quad 2021-05-07 00:00:[address] [facility] [place] Pneumococcal Polysaccharide, PPSV23 (PNEUMOVAX) 2021-05-07 00:00:[address] [facility] [place] Influenza High Dose Quad 2021-05-07 00:00:[address] [facility] [place] Pneumococcal Polysaccharide, PPSV23 (PNEUMOVAX) 2021-05-07 00:00:[address] [facility] [place] Influenza High Dose Quad 2021-05-07 00:00:[address] [facility] [place] Pneumococcal Polysaccharide, PPSV23 (PNEUMOVAX) 2021-05-07 00:00:[address] [facility] [place] Influenza High Dose Quad 2021-05-07 00:00:[address] [facility] [place] Pneumococcal Polysaccharide, PPSV23 (PNEUMOVAX) 2021-05-07 00:00:[address] [facility] [place] Influenza High Dose Quad 2021-05-07 00:00:[address] [facility] [place] Pneumococcal Polysaccharide, PPSV23 (PNEUMOVAX) 2021-05-07 00:00:[address] [facility] [place] Influenza High Dose Quad 2021-05-07 00:00:[address] [facility] [place] Pneumococcal Polysaccharide, PPSV23 (PNEUMOVAX) 2021-05-07 00:00:[address] [facility] [place] Influenza High Dose Quad 2021-05-07 00:00:[address] [facility] [place] Pneumococcal Polysaccharide, PPSV23 (PNEUMOVAX) 2021-05-07 00:00:[address] [facility] [place] Influenza High Dose Quad 2021-05-07 00:00:[address] [facility] [place] Pneumococcal Polysaccharide, PPSV23 (PNEUMOVAX) 2021-05-07 00:00:[address] [facility] [place] Influenza High Dose Quad 2021-05-07 00:00:[address] [facility] [place] Pneumococcal Polysaccharide, PPSV23 (PNEUMOVAX) 2021-05-07 00:00:[address] [facility] [place] Influenza High Dose Quad 2021-05-07 00:00:[address] [facility] [place] Pneumococcal Polysaccharide, PPSV23 (PNEUMOVAX) 2021-05-07 00:00:[address] [facility] [place] Influenza High Dose Quad 2021-05-07 00:00:[address] [facility] [place] Pneumococcal Polysaccharide, PPSV23 (PNEUMOVAX) 2021-05-07 00:00:[address] [facility] [place] Influenza High Dose Quad 2021-05-07 00:00:[address] [facility] [place] Pneumococcal Polysaccharide, PPSV23 (PNEUMOVAX) 2021-05-07 00:00:[address] [facility] [place] Influenza High Dose Quad 2021-05-07 00:00:[address] [facility] [place] Pneumococcal Polysaccharide, PPSV23 (PNEUMOVAX) 2021-05-07 00:00:[address] [facility] [place] Influenza High Dose Quad 2021-05-07 00:00:[address] [facility] [place] Pneumococcal Polysaccharide, PPSV23 (PNEUMOVAX) 2021-05-07 00:00:[address] [facility] [place] Influenza High Dose Quad 2021-05-07 00:00:[address] [facility] [place] Pneumococcal Polysaccharide, PPSV23 (PNEUMOVAX) 2021-05-07 00:00:[address] [facility] [place] Influenza High Dose Quad 2021-05-07 00:00:[address] [facility] [place] Pneumococcal Polysaccharide, PPSV23 (PNEUMOVAX) 2021-05-07 00:00:[address] [facility] [place] Influenza High Dose Quad 2021-05-07 00:00:[address] [facility] [place] Pneumococcal Polysaccharide, PPSV23 (PNEUMOVAX) 2021-05-07 00:00:[address] [facility] [place] Influenza High Dose Quad 2021-05-07 00:00:[address] [facility] [place] Pneumococcal Polysaccharide, PPSV23 (PNEUMOVAX) 2021-05-07 00:00:[address] [facility] [place] Influenza High Dose Quad 2021-05-07 00:00:[address] [facility] [place] Pneumococcal Polysaccharide, PPSV23 (PNEUMOVAX) 2021-05-07 00:00:[address] [facility] [place] Influenza High Dose Quad 2021-05-07 00:00:[address] [facility] [place] Pneumococcal Polysaccharide, PPSV23 (PNEUMOVAX) 2021-05-07 00:00:[address] [facility] [place] Influenza High Dose Quad 2021-05-07 00:00:[address] [facility] [place] Pneumococcal Polysaccharide, PPSV23 (PNEUMOVAX) 2021-05-07 00:00:[address] [facility] [place] Influenza High Dose Quad 2021-05-07 00:00:[address] [facility] [place] Pneumococcal Polysaccharide, PPSV23 (PNEUMOVAX) 2021-05-07 00:00:[address] [facility] [place] Influenza High Dose Quad 2021-05-07 00:00:[address] [facility] [place] Pneumococcal Polysaccharide, PPSV23 (PNEUMOVAX) 2021-05-07 00:00:[address] [facility] [place] Influenza High Dose Quad 2021-05-07 00:00:[address] [facility] [place] Pneumococcal Polysaccharide, PPSV23 (PNEUMOVAX) 2021-05-07 00:00:[address] [facility] [place] Influenza High Dose Quad 2021-05-07 00:00:[address] [facility] [place] Pneumococcal Polysaccharide, PPSV23 (PNEUMOVAX) 2021-05-07 00:00:[address] [facility] [place] Influenza High Dose Quad 2021-05-07 00:00:[address] [facility] [place] Pneumococcal Polysaccharide, PPSV23 (PNEUMOVAX) 2021-05-07 00:00:[address] [facility] [place] Influenza High Dose Quad 2021-05-07 00:00:[address] [facility] [place] Pneumococcal Polysaccharide, PPSV23 (PNEUMOVAX) 2021-05-07 00:00:[address] [facility] [place] Influenza High Dose Quad 2021-05-07 00:00:[address] [facility] [place] Pneumococcal Polysaccharide, PPSV23 (PNEUMOVAX) 2021-05-07 00:00:[address] [facility] [place] Influenza High Dose Quad 2021-05-07 00:00:[address] [facility] [place] Pneumococcal Polysaccharide, PPSV23 (PNEUMOVAX) 2021-05-07 00:00:[address] [facility] [place] Influenza High Dose Quad 2021-05-07 00:00:[address] [facility] [place] Pneumococcal Polysaccharide, PPSV23 (PNEUMOVAX) 2021-05-07 00:00:[address] [facility] [place] Influenza High Dose Quad 2021-05-07 00:00:[address] [facility] [place] Pneumococcal Polysaccharide, PPSV23 (PNEUMOVAX) 2021-05-07 00:00:[address] [facility] [place] Influenza High Dose Quad 2021-05-07 00:00:[address] [facility] [place] Pneumococcal Polysaccharide, PPSV23 (PNEUMOVAX) 2021-05-07 00:00:[address] [facility] [place] Influenza High Dose Quad 2021-05-07 00:00:[address] [facility] [place] Pneumococcal Polysaccharide, PPSV23 (PNEUMOVAX) 2021-05-07 00:00:[address] [facility] [place] Influenza High Dose Quad 2021-05-07 00:00:[address] [facility] [place] Pneumococcal Polysaccharide, PPSV23 (PNEUMOVAX) 2021-05-07 00:00:[address] [facility] [place] Influenza High Dose Quad 2021-05-07 00:00:[address] [facility] [place] Pneumococcal Polysaccharide, PPSV23 (PNEUMOVAX) 2021-05-07 00:00:[address] [facility] [place] Influenza High Dose Quad 2021-05-07 00:00:[address] [facility] [place] Pneumococcal Polysaccharide, PPSV23 (PNEUMOVAX) 2021-05-07 00:00:[address] [facility] [place] Influenza High Dose Quad 2021-05-07 00:00:[address] [facility] [place] Pneumococcal Polysaccharide, PPSV23 (PNEUMOVAX) 2021-05-07 00:00:[address] [facility] [place] Influenza High Dose Quad 2021-05-07 00:00:[address] [facility] [place] Pneumococcal Polysaccharide, PPSV23 (PNEUMOVAX) 2021-05-07 00:00:[address] [facility] [place] Influenza High Dose Quad 2021-05-07 00:00:[address] [facility] [place] Pneumococcal Polysaccharide, PPSV23 (PNEUMOVAX) 2021-05-07 00:00:[address] [facility] [place] Influenza High Dose Quad 2021-05-07 00:00:[address] [facility] [place] Pneumococcal Polysaccharide, PPSV23 (PNEUMOVAX) 2021-05-07 00:00:[address] [facility] [place] Influenza High Dose Quad 2021-05-07 00:00:[address] [facility] [place] Pneumococcal Polysaccharide, PPSV23 (PNEUMOVAX) 2021-05-07 00:00:[address] [facility] [place] Influenza High Dose Quad 2021-05-07 00:00:[address] [facility] [place] Pneumococcal Polysaccharide, PPSV23 (PNEUMOVAX) 2021-05-07 00:00:[address] [facility] [place] Influenza High Dose Quad 2021-05-07 00:00:[address] [facility] [place] Pneumococcal Polysaccharide, PPSV23 (PNEUMOVAX) 2021-05-07 00:00:[address] [facility] [place] Influenza High Dose Quad 2021-05-07 00:00:[address] [facility] [place] Pneumococcal Polysaccharide, PPSV23 (PNEUMOVAX) 2021-05-07 00:00:[address] [facility] [place] Influenza High Dose Quad 2021-05-07 00:00:[address] [facility] [place] Pneumococcal Polysaccharide, PPSV23 (PNEUMOVAX) 2021-05-07 00:00:[address] [facility] [place] Influenza High Dose Quad 2021-05-07 00:00:[address] [facility] [place] Pneumococcal Polysaccharide, PPSV23 (PNEUMOVAX) 2021-05-07 00:00:[address] [facility] [place] Influenza High Dose Quad 2021-05-07 00:00:[address] [facility] [place] Pneumococcal Polysaccharide, PPSV23 (PNEUMOVAX) 2021-05-07 00:00:[address] [facility] [place] Influenza High Dose Quad 2021-05-07 00:00:[address] [facility] [place] Pneumococcal Polysaccharide, PPSV23 (PNEUMOVAX) 2021-05-07 00:00:[address] [facility] [place] Influenza High Dose Quad 2021-05-07 00:00:[address] [facility] [place] Pneumococcal Polysaccharide, PPSV23 (PNEUMOVAX) 2021-05-07 00:00:[address] [facility] [place] Influenza High Dose Quad 2021-05-07 00:00:[address] [facility] [place] Pneumococcal Polysaccharide, PPSV23 (PNEUMOVAX) 2021-05-07 00:00:[address] [facility] [place] Influenza High Dose Quad 2021-05-07 00:00:[address] [facility] [place] Pneumococcal Polysaccharide, PPSV23 (PNEUMOVAX) 2021-05-07 00:00:[address] [facility] [place] Influenza High Dose Quad 2021-05-07 00:00:[address] [facility] [place] Pneumococcal Polysaccharide, PPSV23 (PNEUMOVAX) 2021-05-07 00:00:[address] [facility] [place] Influenza High Dose Quad 2021-05-07 00:00:[address] [facility] [place] Pneumococcal Polysaccharide, PPSV23 (PNEUMOVAX) 2021-05-07 00:00:[address] [facility] [place] Influenza High Dose Quad 2021-05-07 00:00:[address] [facility] [place] Pneumococcal Polysaccharide, PPSV23 (PNEUMOVAX) 2021-05-07 00:00:[address] [facility] [place] Influenza High Dose Quad 2021-05-07 00:00:[address] [facility] [place] Pneumococcal Polysaccharide, PPSV23 (PNEUMOVAX) 2021-05-07 00:00:[address] [facility] [place] SARS-COV-2 COVID-19 MODERNA VACCINE 2020-08-28 00:00:[address] [facility] [place] SARS-COV-2 COVID-19 MODERNA VACCINE 2020-08-28 00:00:[address] [facility] [place] SARS-COV-2 COVID-19 MODERNA VACCINE 2020-08-28 00:00:[address] [facility] [place] SARS-COV-2 COVID-19 MODERNA VACCINE 2020-08-28 00:00:[address] [facility] [place] SARS-COV-2 COVID-19 MODERNA VACCINE 2020-08-28 00:00:[address] [facility] [place] SARS-COV-2 COVID-19 MODERNA VACCINE 2020-08-28 00:00:[address] [facility] [place] SARS-COV-2 COVID-19 MODERNA 12+ YRS VACCINE 2020-08-28 00:00:[address] [facility] [place] SARS-COV-2 COVID-19 MODERNA 12+ YRS VACCINE 2020-08-28 00:00:[address] [facility] [place] SARS-COV-2 COVID-19 MODERNA 12+ YRS VACCINE 2020-08-28 00:00:[address] [facility] [place] SARS-COV-2 COVID-19 MODERNA 12+ YRS VACCINE 2020-08-28 00:00:[address] [facility] [place] SARS-COV-2 COVID-19 MODERNA 12+ YRS VACCINE 2020-08-28 00:00:[address] [facility] [place] SARS-COV-2 COVID-19 MODERNA 12+ YRS VACCINE 2020-08-28 00:00:[address] [facility] [place] SARS-COV-2 COVID-19 MODERNA 12+ YRS VACCINE 2020-08-28 00:00:[address] [facility] [place] SARS-COV-2 COVID-19 MODERNA 12+ YRS VACCINE 2020-08-28 00:00:[address] [facility] [place] SARS-COV-2 COVID-19 MODERNA 12+ YRS VACCINE 2020-08-28 00:00:[address] [facility] [place] SARS-COV-2 COVID-19 MODERNA 12+ YRS VACCINE 2020-08-28 00:00:[address] [facility] [place] SARS-COV-2 COVID-19 MODERNA 12+ YRS VACCINE 2020-08-28 00:00:[address] [facility] [place] SARS-COV-2 COVID-19 MODERNA 12+ YRS VACCINE 2020-08-28 00:00:[address] [facility] [place] SARS-COV-2 COVID-19 MODERNA 12+ YRS VACCINE 2020-08-28 00:00:[address] [facility] [place] SARS-COV-2 COVID-19 MODERNA 12+ YRS VACCINE 2020-08-28 00:00:[address] [facility] [place] SARS-COV-2 COVID-19 MODERNA 12+ YRS VACCINE 2020-08-28 00:00:[address] [facility] [place] SARS-COV-2 COVID-19 MODERNA 12+ YRS VACCINE 2020-08-28 00:00:[address] [facility] [place] SARS-COV-2 COVID-19 MODERNA 12+ YRS VACCINE 2020-08-28 00:00:[address] [facility] [place] SARS-COV-2 COVID-19 MODERNA 12+ YRS VACCINE 2020-08-28 00:00:[address] [facility] [place] SARS-COV-2 COVID-19 MODERNA 12+ YRS VACCINE 2020-08-28 00:00:[address] [facility] [place] SARS-COV-2 COVID-19 MODERNA 12+ YRS VACCINE 2020-08-28 00:00:[address] [facility] [place] SARS-COV-2 COVID-19 MODERNA 12+ YRS VACCINE 2020-08-28 00:00:[address] [facility] [place] SARS-COV-2 COVID-19 MODERNA 12+ YRS VACCINE 2020-08-28 00:00:[address] [facility] [place] SARS-COV-2 COVID-19 MODERNA 12+ YRS VACCINE 2020-08-28 00:00:[address] [facility] [place] SARS-COV-2 COVID-19 MODERNA 12+ YRS VACCINE 2020-08-28 00:00:[address] [facility] [place] SARS-COV-2 COVID-19 MODERNA 12+ YRS VACCINE 2020-08-28 00:00:[address] [facility] [place] SARS-COV-2 COVID-19 MODERNA 12+ YRS VACCINE 2020-08-28 00:00:[address] [facility] [place] SARS-COV-2 COVID-19 MODERNA 12+ YRS VACCINE 2020-08-28 00:00:[address] [facility] [place] SARS-COV-2 COVID-19 MODERNA 12+ YRS VACCINE 2020-08-28 00:00:[address] [facility] [place] SARS-COV-2 COVID-19 MODERNA 12+ YRS VACCINE 2020-08-28 00:00:[address] [facility] [place] SARS-COV-2 COVID-19 MODERNA 12+ YRS VACCINE 2020-08-28 00:00:[address] [facility] [place] SARS-COV-2 COVID-19 MODERNA 12+ YRS VACCINE 2020-08-28 00:00:[address] [facility] [place] SARS-COV-2 COVID-19 MODERNA 12+ YRS VACCINE 2020-08-28 00:00:[address] [facility] [place] SARS-COV-2 COVID-19 MODERNA 12+ YRS VACCINE 2020-08-28 00:00:[address] [facility] [place] SARS-COV-2 COVID-19 MODERNA 12+ YRS VACCINE 2020-08-28 00:00:[address] [facility] [place] SARS-COV-2 COVID-19 MODERNA 12+ YRS VACCINE 2020-08-28 00:00:[address] [facility] [place] SARS-COV-2 COVID-19 MODERNA 12+ YRS VACCINE 2020-08-28 00:00:[address] [facility] [place] SARS-COV-2 COVID-19 MODERNA 12+ YRS VACCINE 2020-08-28 00:00:[address] [facility] [place] SARS-COV-2 COVID-19 MODERNA 12+ YRS VACCINE 2020-08-28 00:00:[address] [facility] [place] SARS-COV-2 COVID-19 MODERNA 12+ YRS VACCINE 2020-08-28 00:00:[address] [facility] [place] SARS-COV-2 COVID-19 MODERNA 12+ YRS VACCINE 2020-08-28 00:00:[address] [facility] [place] SARS-COV-2 COVID-19 MODERNA 12+ YRS VACCINE 2020-08-28 00:00:[address] [facility] [place] SARS-COV-2 COVID-19 MODERNA 12+ YRS VACCINE 2020-08-28 00:00:[address] [facility] [place] SARS-COV-2 COVID-19 MODERNA 12+ YRS VACCINE 2020-08-28 00:00:[address] [facility] [place] SARS-COV-2 COVID-19 MODERNA 12+ YRS VACCINE 2020-08-28 00:00:[address] [facility] [place] SARS-COV-2 COVID-19 MODERNA 12+ YRS VACCINE 2020-08-28 00:00:[address] [facility] [place] SARS-COV-2 COVID-19 MODERNA 12+ YRS VACCINE 2020-08-28 00:00:[address] [facility] [place] SARS-COV-2 COVID-19 MODERNA 12+ YRS VACCINE 2020-08-28 00:00:[address] [facility] [place] SARS-COV-2 COVID-19 MODERNA 12+ YRS VACCINE 2020-08-28 00:00:[address] [facility] [place] SARS-COV-2 COVID-19 MODERNA VACCINE 2020-08-28 00:00:[address] [facility] [place] SARS-COV-2 COVID-19 MODERNA VACCINE 2020-08-28 00:00:[address] [facility] [place] SARS-COV-2 COVID-19 MODERNA VACCINE 2020-07-31 00:00:[address] [facility] [place] SARS-COV-2 COVID-19 MODERNA VACCINE 2020-07-31 00:00:[address] [facility] [place] SARS-COV-2 COVID-19 MODERNA VACCINE 2020-07-31 00:00:[address] [facility] [place] SARS-COV-2 COVID-19 MODERNA VACCINE 2020-07-31 00:00:[address] [facility] [place] SARS-COV-2 COVID-19 MODERNA VACCINE 2020-07-31 00:00:[address] [facility] [place] SARS-COV-2 COVID-19 MODERNA VACCINE 2020-07-31 00:00:[address] [facility] [place] SARS-COV-2 COVID-19 MODERNA 12+ YRS VACCINE 2020-07-31 00:00:[address] [facility] [place] SARS-COV-2 COVID-19 MODERNA 12+ YRS VACCINE 2020-07-31 00:00:[address] [facility] [place] SARS-COV-2 COVID-19 MODERNA 12+ YRS VACCINE 2020-07-31 00:00:[address] [facility] [place] SARS-COV-2 COVID-19 MODERNA 12+ YRS VACCINE 2020-07-31 00:00:[address] [facility] [place] SARS-COV-2 COVID-19 MODERNA 12+ YRS VACCINE 2020-07-31 00:00:[address] [facility] [place] SARS-COV-2 COVID-19 MODERNA 12+ YRS VACCINE 2020-07-31 00:00:[address] [facility] [place] SARS-COV-2 COVID-19 MODERNA 12+ YRS VACCINE 2020-07-31 00:00:[address] [facility] [place] SARS-COV-2 COVID-19 MODERNA 12+ YRS VACCINE 2020-07-31 00:00:[address] [facility] [place] SARS-COV-2 COVID-19 MODERNA 12+ YRS VACCINE 2020-07-31 00:00:[address] [facility] [place] SARS-COV-2 COVID-19 MODERNA 12+ YRS VACCINE 2020-07-31 00:00:[address] [facility] [place] SARS-COV-2 COVID-19 MODERNA 12+ YRS VACCINE 2020-07-31 00:00:[address] [facility] [place] SARS-COV-2 COVID-19 MODERNA 12+ YRS VACCINE 2020-07-31 00:00:[address] [facility] [place] SARS-COV-2 COVID-19 MODERNA 12+ YRS VACCINE 2020-07-31 00:00:[address] [facility] [place] SARS-COV-2 COVID-19 MODERNA 12+ YRS VACCINE 2020-07-31 00:00:[address] [facility] [place] SARS-COV-2 COVID-19 MODERNA 12+ YRS VACCINE 2020-07-31 00:00:[address] [facility] [place] SARS-COV-2 COVID-19 MODERNA 12+ YRS VACCINE 2020-07-31 00:00:[address] [facility] [place] SARS-COV-2 COVID-19 MODERNA 12+ YRS VACCINE 2020-07-31 00:00:[address] [facility] [place] SARS-COV-2 COVID-19 MODERNA 12+ YRS VACCINE 2020-07-31 00:00:[address] [facility] [place] SARS-COV-2 COVID-19 MODERNA 12+ YRS VACCINE 2020-07-31 00:00:[address] [facility] [place] SARS-COV-2 COVID-19 MODERNA 12+ YRS VACCINE 2020-07-31 00:00:[address] [facility] [place] SARS-COV-2 COVID-19 MODERNA 12+ YRS VACCINE 2020-07-31 00:00:[address] [facility] [place] SARS-COV-2 COVID-19 MODERNA 12+ YRS VACCINE 2020-07-31 00:00:[address] [facility] [place] SARS-COV-2 COVID-19 MODERNA 12+ YRS VACCINE 2020-07-31 00:00:[address] [facility] [place] SARS-COV-2 COVID-19 MODERNA 12+ YRS VACCINE 2020-07-31 00:00:[address] [facility] [place] SARS-COV-2 COVID-19 MODERNA 12+ YRS VACCINE 2020-07-31 00:00:[address] [facility] [place] SARS-COV-2 COVID-19 MODERNA 12+ YRS VACCINE 2020-07-31 00:00:[address] [facility] [place] SARS-COV-2 COVID-19 MODERNA 12+ YRS VACCINE 2020-07-31 00:00:[address] [facility] [place] SARS-COV-2 COVID-19 MODERNA 12+ YRS VACCINE 2020-07-31 00:00:[address] [facility] [place] SARS-COV-2 COVID-19 MODERNA 12+ YRS VACCINE 2020-07-31 00:00:[address] [facility] [place] SARS-COV-2 COVID-19 MODERNA 12+ YRS VACCINE 2020-07-31 00:00:[address] [facility] [place] SARS-COV-2 COVID-19 MODERNA 12+ YRS VACCINE 2020-07-31 00:00:[address] [facility] [place] SARS-COV-2 COVID-19 MODERNA 12+ YRS VACCINE 2020-07-31 00:00:[address] [facility] [place] SARS-COV-2 COVID-19 MODERNA 12+ YRS VACCINE 2020-07-31 00:00:[address] [facility] [place] SARS-COV-2 COVID-19 MODERNA 12+ YRS VACCINE 2020-07-31 00:00:[address] [facility] [place] SARS-COV-2 COVID-19 MODERNA 12+ YRS VACCINE 2020-07-31 00:00:[address] [facility] [place] SARS-COV-2 COVID-19 MODERNA 12+ YRS VACCINE 2020-07-31 00:00:[address] [facility] [place] SARS-COV-2 COVID-19 MODERNA 12+ YRS VACCINE 2020-07-31 00:00:[address] [facility] [place] SARS-COV-2 COVID-19 MODERNA 12+ YRS VACCINE 2020-07-31 00:00:[address] [facility] [place] SARS-COV-2 COVID-19 MODERNA 12+ YRS VACCINE 2020-07-31 00:00:[address] [facility] [place] SARS-COV-2 COVID-19 MODERNA 12+ YRS VACCINE 2020-07-31 00:00:[address] [facility] [place] SARS-COV-2 COVID-19 MODERNA 12+ YRS VACCINE 2020-07-31 00:00:[address] [facility] [place] SARS-COV-2 COVID-19 MODERNA 12+ YRS VACCINE 2020-07-31 00:00:[address] [facility] [place] SARS-COV-2 COVID-19 MODERNA 12+ YRS VACCINE 2020-07-31 00:00:[address] [facility] [place] SARS-COV-2 COVID-19 MODERNA 12+ YRS VACCINE 2020-07-31 00:00:[address] [facility] [place] SARS-COV-2 COVID-19 MODERNA 12+ YRS VACCINE 2020-07-31 00:00:[address] [facility] [place] SARS-COV-2 COVID-19 MODERNA 12+ YRS VACCINE 2020-07-31 00:00:[address] [facility] [place] SARS-COV-2 COVID-19 MODERNA 12+ YRS VACCINE 2020-07-31 00:00:[address] [facility] [place] SARS-COV-2 COVID-19 MODERNA 12+ YRS VACCINE 2020-07-31 00:00:[address] [facility] [place] SARS-COV-2 COVID-19 MODERNA VACCINE 2020-07-31 00:00:[address] [facility] [place] SARS-COV-2 COVID-19 MODERNA VACCINE 2020-07-31 00:00:[address] [facility] [place] SARS-COV-2 COVID-19 MODERNA 12+ YRS VACCINE Unknown Completed [facility] [place] SARS-COV-2 COVID-19 MODERNA 12+ YRS VACCINE Unknown Completed [facility] [place] Influenza High Dose Quad Unknown Completed [facility] [place] Pneumococcal Polysaccharide, PPSV23 (PNEUMOVAX) Unknown Completed [facility] SARS-COV-2 COVID-19 MODERNA 0.25ML BOOSTER VACCINE Unknown Completed [facility] Influenza Virus Vaccine,quad Im,preserve Free 65+ (FLUAD) Unknown Completed [facility] [place] Pneumococcal 20 Conjugate, PCV20 (Prevnar 20) Unknown Completed [facility] [place] SARS-COV-2 COVID-19 MODERNA 12+ YRS VACCINE Unknown Completed [facility] [place] SARS-COV-2 COVID-19 MODERNA 12+ YRS VACCINE Unknown Completed [facility] [place] Influenza High Dose Quad Unknown Completed [facility] [place] Pneumococcal Polysaccharide, PPSV23 (PNEUMOVAX) Unknown Completed [facility] SARS-COV-2 COVID-19 MODERNA 0.25ML BOOSTER VACCINE Unknown Completed [facility] Influenza Virus Vaccine,quad Im,preserve Free 65+ (FLUAD) Unknown Completed [facility] [place] Pneumococcal 20 Conjugate, PCV20 (Prevnar 20) Unknown Completed [facility] [place] SARS-COV-2 COVID-19 MODERNA 12+ YRS VACCINE Unknown Completed [facility] [place] SARS-COV-2 COVID-19 MODERNA 12+ YRS VACCINE Unknown Completed [facility] [place] Influenza High Dose Quad Unknown Completed [facility] [place] Pneumococcal Polysaccharide, PPSV23 (PNEUMOVAX) Unknown Completed [facility] SARS-COV-2 COVID-19 MODERNA 0.25ML BOOSTER VACCINE Unknown Completed [facility] Influenza Virus Vaccine,quad Im,preserve Free 65+ (FLUAD) Unknown Completed [facility] [place] Pneumococcal 20 Conjugate, PCV20 (Prevnar 20) Unknown Completed [facility] [place] SARS-COV-2 COVID-19 MODERNA 12+ YRS VACCINE Unknown Completed [facility] [place] SARS-COV-2 COVID-19 MODERNA 12+ YRS VACCINE Unknown Completed [facility] [place] Influenza High Dose Quad Unknown Completed [facility] [place] Pneumococcal Polysaccharide, PPSV23 (PNEUMOVAX) Unknown Completed [facility] SARS-COV-2 COVID-19 MODERNA 0.25ML BOOSTER VACCINE Unknown Completed [facility] Influenza Virus Vaccine,quad Im,preserve Free 65+ (FLUAD) Unknown Completed [facility] [place] Pneumococcal 20 Conjugate, PCV20 (Prevnar 20) Unknown Completed [facility] [place] SARS-COV-2 COVID-19 MODERNA 12+ YRS VACCINE Unknown Completed [facility] [place] SARS-COV-2 COVID-19 MODERNA 12+ YRS VACCINE Unknown Completed [facility] [place] Influenza High Dose Quad Unknown Completed [facility] [place] Pneumococcal Polysaccharide, PPSV23 (PNEUMOVAX) Unknown Completed [facility] SARS-COV-2 COVID-19 MODERNA 0.25ML BOOSTER VACCINE Unknown Completed [facility] Influenza Virus Vaccine,quad Im,preserve Free 65+ (FLUAD) Unknown Completed [facility] [place] Pneumococcal 20 Conjugate, PCV20 (Prevnar 20) Unknown Completed [facility] [place] SARS-COV-2 COVID-19 MODERNA 12+ YRS VACCINE Unknown Completed [facility] [place] SARS-COV-2 COVID-19 MODERNA 12+ YRS VACCINE Unknown Completed [facility] [place] Influenza High Dose Quad Unknown Completed [facility] [place] Pneumococcal Polysaccharide, PPSV23 (PNEUMOVAX) Unknown Completed [facility] SARS-COV-2 COVID-19 MODERNA 0.25ML BOOSTER VACCINE Unknown Completed [facility] Influenza Virus Vaccine,quad Im,preserve Free 65+ (FLUAD) Unknown Completed [facility] [place] Pneumococcal 20 Conjugate, PCV20 (Prevnar 20) Unknown Completed [facility] [place] SARS-COV-2 COVID-19 MODERNA 12+ YRS VACCINE Unknown Completed [facility] [place] SARS-COV-2 COVID-19 MODERNA 12+ YRS VACCINE Unknown Completed [facility] [place] Influenza High Dose Quad Unknown Completed [facility] [place] Pneumococcal Polysaccharide, PPSV23 (PNEUMOVAX) Unknown Completed [facility] SARS-COV-2 COVID-19 MODERNA 0.25ML BOOSTER VACCINE Unknown Completed [facility] Influenza Virus Vaccine,quad Im,preserve Free 65+ (FLUAD) Unknown Completed [facility] [place] Pneumococcal 20 Conjugate, PCV20 (Prevnar 20) Unknown Completed [facility] [place] SARS-COV-2 COVID-19 MODERNA 12+ YRS VACCINE Unknown Completed [facility] [place] SARS-COV-2 COVID-19 MODERNA 12+ YRS VACCINE Unknown Completed [facility] [place] Influenza High Dose Quad Unknown Completed [facility] [place] Pneumococcal Polysaccharide, PPSV23 (PNEUMOVAX) Unknown Completed [facility] SARS-COV-2 COVID-19 MODERNA 0.25ML BOOSTER VACCINE Unknown Completed [facility] Influenza Virus Vaccine,quad Im,preserve Free 65+ (FLUAD) Unknown Completed [facility] [place] Pneumococcal 20 Conjugate, PCV20 (Prevnar 20) Unknown Completed [facility] [place] SARS-COV-2 COVID-19 MODERNA 12+ YRS VACCINE Unknown Completed [facility] [place] SARS-COV-2 COVID-19 MODERNA 12+ YRS VACCINE Unknown Completed [facility] [place] Influenza High Dose Quad Unknown Completed [facility] [place] Pneumococcal Polysaccharide, PPSV23 (PNEUMOVAX) Unknown Completed [facility] SARS-COV-2 COVID-19 MODERNA 0.25ML BOOSTER VACCINE Unknown Completed [facility] Influenza Virus Vaccine,quad Im,preserve Free 65+ (FLUAD) Unknown Completed [facility] [place] Pneumococcal 20 Conjugate, PCV20 (Prevnar 20) Unknown Completed [facility] [place] SARS-COV-2 COVID-19 MODERNA 12+ YRS VACCINE Unknown Completed [facility] [place] SARS-COV-2 COVID-19 MODERNA 12+ YRS VACCINE Unknown Completed [facility] [place] Influenza High Dose Quad Unknown Completed [facility] [place] Pneumococcal Polysaccharide, PPSV23 (PNEUMOVAX) Unknown Completed [facility] SARS-COV-2 COVID-19 MODERNA 0.25ML BOOSTER VACCINE Unknown Completed [facility] Influenza Virus Vaccine,quad Im,preserve Free 65+ (FLUAD) Unknown Completed [facility] [place] Pneumococcal 20 Conjugate, PCV20 (Prevnar 20) Unknown Completed [facility] [place] SARS-COV-2 COVID-19 MODERNA 12+ YRS VACCINE Unknown Completed [facility] [place] SARS-COV-2 COVID-19 MODERNA 12+ YRS VACCINE Unknown Completed [facility] [place] Influenza High Dose Quad Unknown Completed [facility] [place] Pneumococcal Polysaccharide, PPSV23 (PNEUMOVAX) Unknown Completed [facility] SARS-COV-2 COVID-19 MODERNA 0.25ML BOOSTER VACCINE Unknown Completed [facility] Influenza Virus Vaccine,quad Im,preserve Free 65+ (FLUAD) Unknown Completed [facility] [place] Pneumococcal 20 Conjugate, PCV20 (Prevnar 20) Unknown Completed [facility] [place] [place] Vital Signs Vital Name Observation Time Observation Value Comments S ource Systolic blood pressure 2023-07-28 21:55:00 135 mm[Hg] [facility] Diastolic blood pressure 2023-07-28 21:55:00 76 mm[Hg] [facility] Heart rate 2023-07-28 21:55:00 78 /min [facility] Body temperature 2023-07-28 21:55:[address] [facility] [place] [place] Respiratory rate 2023-07-28 21:55:00 18 /min [facility] [place] [place] Body height 2023-07-28 21:55:00 157.5 cm [facility] Body weight 2023-07-28 21:55:00 100.336 kg [facility] BMI 2023-07-28 21:55:00 40.46 kg/m2 [facility] Oxygen saturation in Arterial blood by Pulse oximetry 2023-07-28 21:55:00 100 /min [facility] Systolic blood pressure 2023-02-17 20:17:00 144 mm[Hg] [facility] Diastolic blood pressure 2023-02-17 20:17:00 69 mm[Hg] [facility] Heart rate 2023-02-17 20:17:00 72 /min Unive [facility] Body height 2023-02-17 20:17:00 157.5 cm [facility] Body weight 2023-02-17 20:17:00 102.513 kg [facility] BMI 2023-02-17 20:17:00 41.34 kg/m2 [facility] Oxygen saturation in Arterial blood by Pulse oximetry 2023-02-17 20:17:00 95 /min [facility] Body temperature 2023-02-17 20:14:[address] [facility] [place] Systolic blood pressure 2023-02-04 19:53:00 138 mm[Hg] [facility] Diastolic blood pressure 2023-02-04 19:53:00 68 mm[Hg] [facility] Heart rate 2023-02-04 19:53:00 71 /[facility] 2023-02-04 19:53:[address] [facility] [place] [place] Respiratory rate 2023-02-04 19:53:00 18 /min [facility] [place] [place] Body height 2023-02-04 19:53:00 160 cm [facility] Body weight 2023-02-04 19:53:00 102.694 kg [facility] BMI 2023-02-04 19:53:00 40.10 kg/m2 [facility] Oxygen saturation in Arterial blood by Pulse oximetry 2023-02-04 19:53:00 97 /min [facility] Systolic blood pressure 2023-01-26 20:42:00 141 mm[Hg] [facility] Diastolic blood pressure 2023-01-26 20:42:00 67 mm[Hg] [facility] Heart rate 2023-01-26 20:42:00 75 /min Un[facility] Body temperature 2023-01-26 20:42:[address] [facility] [place] Respiratory rate 2023-01-26 20:42:00 20 /min [facility] [place] [place] Body weight 2023-01-26 20:42:00 102.286 kg [facility] BMI 2023-01-26 20:42:00 41.24 kg/m2 [facility] Oxygen saturation in Arterial blood by Pulse oximetry 2023-01-26 20:42:00 97 /min [facility] Systolic blood pressure 2023-01-25 02:44:20 147 mm[Hg] [facility] Diastolic blood pressure 2023-01-25 02:44:20 46 mm[Hg] [facility] Heart rate 2023-01-25 02:44:20 79 /min Un[facility] Body temperature 2023-01-25 02:44:[address] [facility] [place] [place] Respiratory rate 2023-01-25 02:44:20 20 /min [facility] [place] [place] Oxygen saturation in Arterial blood by Pulse oximetry 2023-01-25 02:44:20 97 /min [facility] Body height 2023-01-24 23:21:00 157.5 cm [facility] Body weight 2023-01-24 23:21:00 99.791 kg [facility] BMI 2023-01-24 23:21:00 40.24 kg/m2 [facility] Systolic blood pressure 2023-01-17 02:00:00 148 mm[Hg] [facility] Diastolic blood pressure 2023-01-17 02:00:00 57 mm[Hg] [facility] Heart rate 2023-01-17 02:00:00 64 /min Un[facility] Body temperature 2023-01-17 02:00:[address] [facility] [place] Respiratory rate 2023-01-17 02:00:00 15 /min [facility] [place] [place] Body height 2023-01-17 02:00:00 157.5 cm Univ [facility] Body weight 2023-01-17 02:00:00 104.327 kg [facility] BMI 2023-01-17 02:00:00 42.07 kg/m2 Univ [facility] Oxygen saturation in Arterial blood by Pulse oximetry 2023-01-17 02:00:00 98 /min [facility] Body height 2022-10-10 21:37:00 157.5 cm [facility] Body weight 2022-10-10 21:37:00 105.235 kg [facility] BMI 2022-10-10 21:37:00 42.43 kg/m2 Univ [facility] Systolic blood pressure 2022-09-05 17:53:00 161 mm[Hg] [facility] Diastolic blood pressure 2022-09-05 17:53:00 74 mm[Hg] [facility] Heart rate 2022-09-05 17:53:00 81 /min Un[facility] Body temperature 2022-09-05 17:34:[address] [facility] [place] Respiratory rate 2022-09-05 17:34:00 18 /min [facility] [place] [place] Body height 2022-09-05 17:34:00 157.5 cm Univ [facility] Body weight 2022-09-05 17:34:00 105.235 kg Univ [facility] BMI 2022-09-05 17:34:00 42.43 kg/m2 [facility] Oxygen saturation in Arterial blood by Pulse oximetry 2022-09-05 17:34:00 97 /min [facility] Systolic blood pressure 2022-07-23 16:29:00 144 mm[Hg] [facility] Diastolic blood pressure 2022-07-23 16:29:00 68 mm[Hg] [facility] Heart rate 2022-07-23 16:29:00 70 /min Unive [facility] Respiratory rate 2022-07-23 16:29:00 18 /min [facility] [place] [place] Body height 2022-07-23 16:29:00 157.5 cm Univ [facility] Body weight 2022-07-23 16:29:[address] [facility] [place] [facility] BMI 2022-07-23 16:29:00 42.43 kg/m2 [facility] Oxygen saturation in Arterial blood by Pulse oximetry 2022-07-23 16:29:00 97 /min [facility] Systolic blood pressure 2022-07-16 22:39:00 141 mm[Hg] [facility] Diastolic blood pressure 2022-07-16 22:39:00 76 mm[Hg] [facility] Heart rate 2022-07-16 22:39:00 76 /min [facility] Body temperature 2022-07-16 22:39:[address] [facility] [place] [place] Respiratory rate 2022-07-16 22:39:00 20 /min [facility] [place] [place] Body height 2022-07-16 22:39:00 157.5 cm [facility] Body weight 2022-07-16 22:39:00 105.87 kg Univ [facility] BMI 2022-07-16 22:39:00 42.69 kg/m2 Univ [facility] Oxygen saturation in Arterial blood by Pulse oximetry 2022-07-16 22:39:00 99 /min [facility] Systolic blood pressure 2022-06-10 23:25:00 158 mm[Hg] [facility] Diastolic blood pressure 2022-06-10 23:25:00 76 mm[Hg] [facility] Heart rate 2022-06-10 22:36:00 76 /min [facility] Res[facility] rate 2022-06-10 22:36:00 18 /min [facility] [place] [place] Body height 2022-06-10 22:36:00 162.6 cm [facility] Body weight 2022-06-10 22:36:00 107.502 kg [facility] BMI 2022-06-10 22:36:00 40.68 kg/m2 [facility] Oxygen saturation in Arterial blood by Pulse oximetry 2022-06-10 22:36:00 97 /min [facility] Systolic blood pressure 2022-05-28 22:40:00 140 mm[Hg] [facility] Diastolic blood pressure 2022-05-28 22:40:00 68 mm[Hg] [facility] Heart rate 2022-05-28 22:38:00 88 /min Unive [facility] Respiratory rate 2022-05-28 22:38:00 18 /min [facility] [place] [place] Body weight 2022-05-28 22:38:00 107.049 kg Univ [facility] BMI 2022-05-28 22:38:00 40.51 kg/m2 Univ [facility] Oxygen saturation in Arterial blood by Pulse oximetry 2022-05-28 22:38:00 98 /min [facility] Systolic blood pressure 2022-05-23 16:25:00 151 mm[Hg] [facility] Diastolic blood pressure 2022-05-23 16:25:00 63 mm[Hg] [facility] Heart rate 2022-05-23 16:20:00 69 /min Unive [facility] Respiratory rate 2022-05-23 16:20:00 18 /min [facility] [place] [place] Body height 2022-05-23 16:20:00 162.6 cm Univ [facility] Body weight 2022-05-23 16:20:00 107.049 kg [facility] BMI 2022-05-23 16:20:00 40.51 kg/m2 Univ [facility] Oxygen saturation in Arterial blood by Pulse oximetry 2022-05-23 16:20:00 98 /min [facility] Systolic blood pressure 2021-05-07 16:02:00 138 mm[Hg] [facility] Diastolic blood pressure 2021-05-07 16:02:00 79 mm[Hg] [facility] Heart rate 2021-05-07 15:56:00 71 /min Unive [facility] Respiratory rate 2021-05-07 15:56:00 18 /min [facility] [place] [place] Body height 2021-05-07 15:56:00 162.6 cm Univ [facility] Body weight 2021-05-07 15:56:00 106.006 kg [facility] BMI 2021-05-07 15:56:00 40.11 kg/m2 [facility] Oxygen saturation in Arterial blood by Pulse oximetry 2021-05-07 15:56:00 98 /min Amigo o f [facility] Procedures Procedure Date / Time Performed Performing Clinician Source POCT SARS-COV-2 ANTIGEN (BINAX NOW) 2023-07-28 22:23:[address] [facility] [place] POCT MOLECULAR FLU 2023-07-28 21:58:[address] [facility] [place] EXTERNAL PROVIDER RECORDS 2023-06-15 06:01:00 [place] Unassigned, [place] [facility] [place] AUTHORIZATION FOR RELEASE OF PHI 2023-06-05 06:01:00 Doctor Unassigned, [place] [facility] [place] AUTHORIZATION FOR RELEASE OF PHI 2023-05-28 06:01:00 Doctor Unassigned, [place] [facility] [place] XR CHEST 1 VW 2023-01-25 01:00:00 Sebastián Montgomery [facility] RAPID STREP SCREEN FOR GROUP A 2023-01-25 00:32:00 Sebastián Montgomery [facility] [place] RAPID INFLUENZA A/B 2023-01-25 00:32:00 Sebastián Montgomery [facility] COVID-19 (ID NOW RAPID TESTING) 2023-01-25 00:32:00 Sebastián Montgomery [facility] [place] CONSENT/REFUSAL FOR DIAGNOSIS AND TREATMENT 2023-01-24 23:06:29 Doctor Unassigned, [place] [facility] [place] ASSIGNMENT OF BENEFITS 2023-01-17 02:40:39 Docto r Unassigned, [place] [facility] [place] NOTICE OF PRIVACY PRACTICES 2023-01-17 01:57:28 Doctor Unassigned, [place] [facility] [place] CONSENT/REFUSAL FOR DIAGNOSIS AND TREATMENT 2023-01-17 01:56:28 Doctor Unassigned, [place] [facility] [place] DEXA PERIPHERAL (FOREARM) 2022-10-10 19:43:[address] [facility] [place] DEXA AXIAL (HIP AND SPINE) 2022-10-10 19:43:[address] [facility] [place] ASSIGNMENT OF BENEFITS 2022-10-10 18:35:59 Docto r Unassigned, [place] [facility] [place] POCT SARS-COV-2 ANTIGEN (BINAX NOW) 2022-07-16 22:58:[address] [facility] [place] POCT MOLECULAR FLU 2022-07-16 22:42:00 Unknown, Attend ing [facility] [place] PNEUMOCOCCAL 20 CONJUGATE (PREVNAR 20) VACCINE 2022-05-23 17:31:[address] [facility] [place] FLU VACC(),65+YR,0. 5 ML,IM,ADJUVANTED,QUAD(FL UAD) 2022-05-23 16:43:[address] [facility] [place] SARS-COV-2 COVID-19 VACCINE BOOSTER,0.25ML,IM (MODERNA) 2021-06-04 16:34:24 Doctor Unassigned, [place] [facility] [place] EXTERNAL PROVIDER RECORDS 2021-05-15 05:01:00 Doctor Unassigned, [place] [facility] [place] PNEUMOCOCCAL VACCINE, 23-VALENT (PNEUMOVAX) 2021-05-07 17:24:49 [facility] FLU VACC(),65+ YRS,IM,HIGH DOSE QUAD 2021-05-07 17:24:44 [facility] Encounters Start Date/Time End Date/Time Encounter Type Admission Type Attending Clinicians Care Facility Care Department Encounter ID Source 2023-10-27 15:40:00 2023-10-27 15:40:00 Outpatient R MARQUIS LONG UZOMA [facility] [id number] [facility] 2023-10-23 09:30:00 2023-10-23 09:30:00 Outpatient R [facility] [id number] [facility] 2023-07-28 15:40:00 2023-07-28 16:21:13 Outpatient R ANTONI LONGMA [facility]RA[id number] 2023-07-28 15:40:00 2023-07-28 16:21:13 Office Visit Marquis Long [facility] 1.2.840.114 350.1.13.10 4.2.7.2.686 [id number] [facility] 2023-07-24 00:00:00 2023-07-24 00:00:00 Telephone Robert Barrett [facility] 1.2.840.114 350.1.13.10 4.2.7.2.686 [id number] [facility] 2023-07-07 00:00:00 2023-07-07 00:00:00 Telephone Marquita Perkins [facility] 1.2.840.114 350.1.13.10 4.2.7.2.686 [id number] [facility] 2023-07-07 00:00:00 2023-07-07 00:00:00 Telephone Marquis Long [facility] 1.2.840.114 350.1.13.10 4.2.7.2.686 [id number] [facility] 2023-06-15 00:00:00 2023-06-15 00:00:00 Orders Only Doctor Unassigned, [place] [facility] 1.2840.114 350.1.13.10 4.2.7.2.686 [id number] [facility] 2023-06-05 00:00:00 2023-06-05 00:00:00 Orders Only Doctor Unassigned, [place] [facility] 1.2840.114 350.1.13.10 4.2.7.2.686 [id number] [facility] 2023-06-05 00:00:00 2023-06-05 00:00:[address] Mar[address] [facility] 1.2.840.114 350.1.13.10 4.2.7.2.686 [id number] [facility] 2023-05-28 00:00:00 2023-05-28 00:00:[address] [facility] 1.2840.114 350.1.13.10 4.2.7.2.686 [id number] [facility] 2023-05-28 00:00:00 2023-05-28 00:00:00 Orders Only Doctor Unassigned, [place] [facility] 1.2840.114 350.1.13.10 4.2.7.2.686 [id number] [facility] 2023-04-06 16:00:00 2023-04-06 17:04:54 Outpatient R ROBERT BARRETT OGECHUKWU [facility] [id number] [facility] 2023-04-06 16:00:00 2023-04-06 17:04:54 Telemedici ne Visit Robert Barrett [facility] 1.2.840.114 350.1.13.10 4.2.7.2.686 [id number] [facility] 2023-04-06 00:00:00 2023-04-06 00:00:00 Telephone Marquis Long [facility] 1.2.840.114 350.1.13.10 4.2.7.2.686 [id number] [facility] 2023-04-04 00:00:00 2023-04-04 00:00:00 Telephone [facility]h [facility] 1..840.114 350.1.13.10 4.2.7.2.686 [id number] [facility] 2023-04-02 00:00:00 2023-04-02 00:00:00 Telephone Obi-Rakesh , [facility] BU[facility] 1..840.114 350.1.13.10 4.2.7.2.686 [id number] [facility] 2023-02-20 15:00:00 2023-02-20 15:00:00 Outpatient R VERA GIRON ELISHA [facility] [id number] [facility] 2023-02-17 15:00:00 2023-02-17 16:36:31 Outpatient R OBI-RAKESH , MARQUIS OBI-RAKESH , [facility] [id number] [facility] 2023-02-17 15:00:00 2023-02-17 16:36:31 Office Visit Obi-Rakesh , [facility] BUILDING 1..840.114 350.1.13.10 4.2.7.2.686 [id number] [facility] 2023-02-04 14:40:00 2023-02-04 16:49:07 Outpatient R OBI-RAKESH , MARQUIS OBI-RAKESH , [facility] [id number] [facility] 2023-02-04 14:40:00 2023-02-04 16:49:07 Office Visit Obi-Rakesh [facility] BU[facility]ING 1..840.114 350.1.13.10 4.2.7.2.686 [id number] [facility] 2023-01-27 00:00:00 2023-01-27 00:00:00 Refill Robert Barrett [facility] 1.2.840.114 350.1.13.10 4.2.7.2.686 [id number] [facility] 2023-01-27 00:00:00 2023-01-27 00:00:00 Telephone Alexsander Marquita [facility] 1.2.840.114 350.1.13.10 4.2.7.2.686 [id number] [facility] 2023-01-27 00:00:00 2023-01-27 00:00:00 Telephone [facility]quita [facility] 1.2.840.114 350.1.13.10 4.2.7.2.686 [id number] [facility] 2023-01-26 15:30:00 2023-01-26 16:26:12 Outpatient R [facility] [id number] [facility] 2023-01-26 15:30:00 2023-01-26 16:26:12 Office Visit Robert Barrett [facility] 1.2.840.114 350.1.13.10 4.2.7.2.686 [id number] [facility] 2023-01-26 00:00:00 2023-01-26 00:00:00 Telephone AlexsanderMarquita [facility] 1.2.840.114 350.1.13.10 4.2.7.2.686 [id number] [facility] 2023-01-24 18:23:00 2023-01-24 22:04:00 Emergency X Sebastián MONTGOMERY [facility] ERT [id number] [facility] 2023-01-24 18:23:00 2023-01-24 22:04:00 Emergency Sebastián Montgomery [facility] 1.2840.114 350.1.13.10 4.2.7.2.686 [id number] [facility] 2023-01-24 00:00:00 2023-01-24 00:00:00 Orders Only Doctor Unassigned, [place] [facility] 1.20.114 350.1.13.10 4.2.7.2.686 [id number] [facility] 2023-01-16 21:14:00 2023-01-17 01:01:00 Emergency X PEEWEE MUÑIZ [facility] ERT [id number] [facility] 2023-01-16 21:14:00 2023-01-17 01:01:00 Emergency Jonathanut Peewee J [facility] 1.2840.114 350.1.13.10 4.2.7.2.686 [id number] [facility] 2023-01-16 00:00:00 2023-01-16 00:00:00 Orders Only Doctor Unassigned, [place] [facility] 1.2840.114 350.1.13.10 4.2.7.2.686 [id number] [facility] 2022-11-21 00:00:00 2022-11-21 00:00:00 Letter (Out) Robert Barrett [facility] 1.2840.114 350.1.13.10 4.2.7.2.686 [id number] [facility] 2022-11-07 10:00:00 2022-11-07 11:43:26 Outpatient R MARQUITA PERKINS [facility] [id number] [facility] 2022-11-07 10:00:00 2022-11-07 11:43:26 Nurse Visit Nurse, [facility] Manjeet Alexsander Marquita [facility] 1.0.114 350.1.13.10 4.2.7.2.686 [id number] [facility] 2022-10-10 13:39:29 2022-10-10 23:59:00 Outpatient R ROBERT BARRETT OGECHUKWU [facility] [id number] [facility] 2022-10-10 13:39:29 2022-10-10 23:59:00 Hospital Encounter Robert Barrett [facility] 1..114 350.1.13.10 4.2.7.2.686 [id number] [facility] 2022-10-10 15:00:00 2022-10-10 15:06:52 Nurse Visit Nurse, [facility] Manjeet Unknown, Attending [facility] 1.0.114 350.1.13.10 4.2.7.2.686 [id number] [facility] 2022-10-10 13:37:25 2022-10-10 13:38:00 Hospital Encounter Robert Barrett [facility] 1.2840.114 350.1.13.10 4.2.7.2.686 [id number] [facility] 2022-10-10 00:00:00 2022-10-10 00:00:00 Orders Only Doctor Unassigned, [place] [facility] 1.840.114 350.1.13.10 4.2.7.2.686 [id number] [facility] 2022-10-10 00:00:00 2022-10-10 00:00:00 Telephone Robert Barrett [facility] 1.2.840.114 350.1.13.10 4.2.7.2.686 [id number] [facility] 2022-10-03 10:00:00 2022-10-03 10:00:00 Outpatient R ROBERT BARRETT OGECHUKWU [facility] [id number] [facility] 2022-09-05 11:30:00 2022-09-05 12:33:29 Outpatient R ROBERT BARRETT OGECHUKWU [facility] [id number] [facility] 2022-09-05 11:30:00 2022-09-05 12:33:29 Office Visit Robert Barrett [facility] 1.2.840.114 350.1.13.10 4.2.7.2.686 [id number] [facility] 2022-08-22 08:30:00 2022-08-22 08:30:00 Outpatient R ROBERT BARRETT OGECHUKWU [facility] [id number] [facility] 2022-08-15 09:45:00 2022-08-15 10:12:03 Outpatient R MARQUITA PERKINS [facility] [id number] [facility] 2022-08-15 09:45:00 2022-08-15 10:12:03 Child Adolescent Psychiatrist Visit 2, Adc Lab Marquita Perkins [facility] 1.2.840.114 350.1.13.10 4.2.7.2.686 [id number] [facility] 2022-08-11 00:00:00 2022-08-11 00:00:00 Telephone Robert Barrett [facility] 1.2.840.114 350.1.13.10 4.2.7.2.686 [id number] [facility] 2022-08-08 00:00:00 2022-08-08 00:00:00 Telephone Robert Barrett [facility] 1.2.840.114 350.1.13.10 4.2.7.2.686 [id number] [facility] 2022-07-23 09:30:00 2022-07-23 11:47:40 Outpatient R [facility] [id number] [facility] 2022-07-23 09:30:00 2022-07-23 11:47:40 Office Visit Robert Barrett [facility] [id number] [facility] 2022-07-21 00:00:00 2022-07-21 00:00:00 Telephone Marquita Perkins [facility] [id number] [id number] [facility] [facility] 2022-07-17 00:00:00 2022-07-17 00:00:00 Refill Marqu[address] Perkins [facility] BUILDING 1.2.840.114 350.1.13.10 4.2.7.2.686 [id number] [facility] 2022-07-16 16:20:00 2022-07-16 17:04:18 Urgent Care Lela Rodgers Unknown, Attending [facility] 1.2.840.114 350.1.13.10 4.2.7.2.686 [id number] [facility] 2022-07-16 11:00:00 2022-07-16 15:48:11 Outpatient R MARQUITA PERKINS [facility] [id number] [facility] 2022-07-16 11:00:00 2022-07-16 15:48:11 Telemedici ne Visit [facility] 1.2.840.114 350.1.13.10 4.2.7.2.686 [id number] [facility] 2022-07-15 00:00:00 2022-07-15 00:00:00 Telephone Alexsander Marquita [facility] NAL BUILDING 1.2.840.114 350.1.13.10 4.2.7.2.686 [id number] [facility] 2022-07-04 11:30:00 2022-07-04 11:30:00 Outpatient R ROBERT BARRETT OGECHUKWU [facility] [id number] [facility] 2022-07-02 00:00:00 2022-07-02 00:00:00 Refill [facility]ander [facility] 1.2.840.114 350.1.13.10 4.2.7.2.686 [id number] [facility] 2022-06-10 16:30:00 2022-06-10 17:26:51 Outpatient R ROBERT BARRETT OGECHUKWU [facility] [id number] [facility] 2022-06-10 16:30:00 2022-06-10 17:26:51 Office Visit Robert Barrett [facility] NAL BUILDING 1.2.840.114 350.1.13.10 4.2.7.2.686 [id number] [facility] 2022-05-28 16:00:00 2022-05-28 16:45:46 Office Visit [facility] 1.2.840.114 350.1.13.10 4.2.7.2.686 [id number] [facility] 2022-05-28 16:00:00 2022-05-28 16:45:46 Outpatient R ARNOLDJOSEPHJOSEPH NGZACQuninNai [facility] [id number] [facility] 2022-05-28 00:00:00 2022-05-28 00:00:00 Telephone ArnoldMilla ontiverosheath [facility] 1.2.840.114 350.1.13.10 4.2.7.2.686 [id number] [facility] 2022-05-23 10:30:00 2022-05-23 12:29:21 Outpatient R MILLA BARRETTHEATH ARNOLD, ROBERT [facility] [id number] [facility] 2022-05-23 10:30:00 2022-05-23 12:29:21 Office Visit Robert Barrett [facility] BU[facility] 1.2.840.114 350.1.13.10 4.2.7.2.686 [id number] [facility] 2022-05-19 16:30:00 2022-05-19 16:30:00 Outpatient R ARNOLDMILLAHEATH ARNOLD, ROBERT [facility] [id number] [facility] 2022-04-24 00:00:00 2022-04-24 00:00:00 Telephone Marquita Perkins [facility] 1.2.840.114 350.1.13.10 4.2.7.2.686 [id number] [facility] 2022-04-02 00:00:00 2022-04-02 00:00:00 Refill KhoakennethMarquita [facility] 1.2.840.114 350.1.13.10 4.2.7.2.686 [id number] [facility] 2021-10-01 15:20:00 2021-10-01 15:20:00 Outpatient R MARQUITA PERKINS [facility] [id number] [facility] 2021-09-17 13:20:00 2021-09-17 13:20:00 Outpatient R MARQUITA PERKINS [facility] [id number] [facility] 2021-09-12 14:40:00 2021-09-12 14:40:00 Outpatient R MARQUITA PERKINS [facility] [id number] [facility] 2021-07-28 18:30:00 2021-07-28 18:30:00 Outpatient R JOHN GARCIA [facility] [id number] [facility] 2021-07-09 00:00:00 2021-07-09 00:00:00 Letter (Out) Sarah Choudhary [facility] 1.2840.114 350.1.13.10 4.2.7.2.686 [id number] [facility] 2021-07-09 00:00:00 2021-07-09 00:00:00 Telephone Silvino Jamison [facility] 1.2.840.114 350.1.13.10 4.2.7.2.686 [id number] [facility] 2021-07-08 11:30:00 2021-07-08 11:45:00 Laboratory Only Only, Ang Db Test Suzanne Salome REPLACED BY [facility] 1.284.114 350.1.13.10 4.2.7.2.686 [id number] [facility] 2021-07-08 11:30:00 2021-07-08 11:30:00 Outpatient R SALOME BREWSTER [facility] [id number] [facility] 2021-07-01 00:00:00 2021-07-01 00:00:00 Telephone Marquita Perkins [facility] 1.840.114 350.1.13.10 4.2.7.2.686 [id number] [facility] 2021-06-04 10:30:00 2021-06-04 10:30:00 Outpatient THANH THORNTON [facility] [id number] [facility] 2021-06-04 10:07:18 2021-06-04 10:07:29 Imm/Inj Visit Nurse, Adc Pob Immunizatio Thanh Jimenes [facility] 1.84.114 350.1.13.10 4.2.7.2.686 [id number] [facility] 2021-05-27 00:00:00 2021-05-27 00:00:00 Telephone Marquita Perkins [facility] 1.2.840.114 350.1.13.10 4.2.7.2.686 [id number] [facility] 2021-05-15 00:00:00 2021-05-15 00:00:00 Orders Only Doctor Unassigned, [place] [facility] 1.284.114 350.1.13.10 4.2.7.2.686 [id number] [facility] 2021-05-07 10:55:03 2021-05-07 12:07:11 Office Visit Marquita Perkins [facility] Building 1.2.840.114 350.1.13.10 4.2.7.2.686 [id number] [facility] 2021-05-07 11:00:00 2021-05-07 11:00:00 Outpatient R ALEXSANDER [facility] [id number] [facility] 2021-05-07 00:00:00 2021-05-07 00:00:00 Telephone Alexsander [facility] Office Building One 1.2.840.114 350.1.13.10 4.2.7.2.686 [id number] [facility] 2021-04-29 00:00:00 2021-04-29 00:00:00 Telephone Marquita Perkins [facility] Building 1.2.840.114 350.1.13.10 4.2.7.2.686 [id number] [facility] 2021-04-22 15:00:00 2021-04-22 23:59:00 Hospital Encounter Alexsander [facility] 1.2.840.114 350.1.13.10 4.2.7.2.686 [id number] [facility] 2021-04-22 00:00:00 2021-04-22 00:00:00 Outpatient R ALEXSANDER [facility] [id number] [facility] 2021-04-17 14:25:31 2021-04-17 15:05:31 Office Visit Marquita Perkins [facility] Building 1.2.840.114 350.1.13.10 4.2.7.2.686 [id number] [facility] 2021-04-17 14:20:00 2021-04-17 14:20:00 Outpatient R MARQUITA PERKINS [facility] [id number] [facility] 2021-04-09 15:00:00 2021-04-09 15:00:00 Outpatient R MARQUITA PERKINS [facility] [id number] [facility] 2021-04-09 00:00:00 2021-04-09 00:00:00 Telephone Josjudithbayron Marquita [facility] 1.2.840.114 350.1.13.10 4.2.7.2.686 [id number] [facility] 2021-03-21 00:00:00 2021-03-21 00:00:[address] [facility] Building [facility] 1.2.840.114 350.1.13.10 4.2.7.2.686 [id number] [facility] 2021-03-12 08:36:14 2021-03-12 11:43:15 Telemedici ne Visit Marquita Perkins [facility] Building 1.2.840.114 350.1.13.10 4.2.7.2.686 [id number] [facility] 2021-03-12 08:36:14 2021-03-12 11:43:15 Telemedici ne Visit Marquita Perkins [facility] 1.2.840.114 350.1.13.10 4.2.7.2.686 [id number] [facility] 2021-03-12 09:20:00 2021-03-12 09:20:00 Outpatient R ALEXSANDER MARQUITA [facility] [id number] [facility] 2021-03-07 00:00:00 2021-03-07 00:00:00 Telephone Marquita Perkins [facility] 1.2.840.114 350.1.13.10 4.2.7.2.686 [id number] [facility] 2021-03-02 07:34:50 2021-03-02 08:34:50 Nurse Visit Therapy, Adc Covid Ora Wynn [facility] 1.2.840.114 350.1.13.10 4.2.7.2.686 [id number] [facility] 2021-03-02 08:00:00 2021-03-02 08:00:00 Outpatient ORA HENDERSON [facility] [id number] [facility] 2021-03-02 00:00:00 2021-03-02 00:00:00 Orders Only Doctor Unassigned, [place] [facility] 1.2840.114 350.1.13.10 4.2.7.2.686 [id number] [facility] 2021-03-01 16:45:01 2021-03-01 17:00:30 Telemedici ne Visit Alexsander [facility] 1.2.840.114 350.1.13.10 4.2.7.2.686 [id number] [facility] 2021-03-01 16:00:00 2021-03-01 16:00:00 Outpatient R MARQUITA PERKINS [facility] [id number] [facility] 2021-02-28 00:00:00 2021-02-28 00:00:00 Telephone Silvino Jamison [facility] 1.284.114 350.1.13.10 4.2.7.2.686 [id number] [facility] 2021-02-28 00:00:00 2021-02-28 00:00:00 Telephone Alexsander [facility] 1.2.840.114 350.1.13.10 4.2.7.2.686 [id number] [facility] 2021-02-28 00:00:00 2021-02-28 00:00:00 [facility] 1.2.840.114 350.1.13.10 4.2.7.2.686 [id number] [facility] 2021-02-27 13:11:06 2021-02-27 13:26:06 Child Adolescent Psychiatrist Visit 2, Adc Lab [facility]quita Perkins [facility] 1.2.840.114 350.1.13.10 4.2.7.2.686 [id number] [facility] 2021-02-27 11:55:22 2021-02-27 12:23:56 Office Visit Marquita Perkins [facility] 1.2.840.114 350.1.13.10 4.2.7.2.686 [id number] [id number] [facility] 2021-02-27 10:39:29 2021-02-27 12:20:15 Office Visit Marquita Perkins [facility] 1.2.840.114 350.1.13.10 4.2.7.2.686 [id number] [facility] 2021-02-27 10:40:00 2021-02-27 10:40:00 Outpatient R JOSJUDITHKILEYKENNETH MARQUITA [facility] [id number] [facility] 2021-01-30 16:30:00 2021-01-30 16:30:00 Outpatient R JOHN GARCIA [facility] [id number] [facility] 2021-01-30 07:51:36 2021-01-30 09:50:20 Telemedici ne Visit John Garcia [facility] 1.2.840.114 350.1.13.10 4.2.7.2.686 [id number] [facility] 2021-01-25 00:00:00 2021-01-25 00:00:00 Telephone Marquita Perkins [facility] [place] Amando [facility] 1.2.840.114 350.1.13.10 4.2.7.2.686 [id number] [id number] [facility] 2021-01-22 00:00:00 2021-01-22 00:00:00 Telephone Marquita Perkins [facility] 1.2.840.114 350.1.13.10 4.2.7.2.686 [id number] [facility] 2020-12-26 00:00:00 2020-12-26 00:00:00 Outpatient R MARQUITA PERKINS [facility] [id number] [facility] 2020-11-29 00:00:00 2020-11-29 00:00:00 Telephone Marquita Perkins [facility] 1.2.840.114 350.1.13.10 4.2.7.2.686 [id number] [facility] 2020-11-28 10:41:23 2020-11-28 11:57:01 Telemedici ne Visit Marquita Perkins [facility] 1.2.840.114 350.1.13.10 4.2.7.2.686 [id number] [facility] 2020-11-28 08:35:00 2020-11-28 08:35:00 Outpatient R MARQUITA PERKINS [facility] [id number] [facility] 2020-11-26 00:00:00 2020-11-26 00:00:00 Telephone Khoakenneth Marquita [facility] 1.2.840.114 350.1.13.10 4.2.7.2.686 [id number] [facility] 2020-11-15 00:00:00 2020-11-15 00:00:00 Telephone KhoakennethMarquita [facility] 1.2.840.114 350.1.13.10 4.2.7.2.686 [id number] [facility] 2020-08-28 14:50:00 2020-08-28 14:50:00 Outpatient IDALMIS OH [facility] [id number] [facility] 2020-08-17 15:40:00 2020-08-17 15:40:00 Outpatient MARQUITA CASTELAN [facility] [id number] [facility] 2020-08-14 00:00:00 2020-08-14 00:00:00 Telephone Delia Young [facility] 1..840.114 350.1.13.10 4.2.7.2.686 [id number] [facility] 2020 00:00:00 2020 00:00:00 Letter (Out) Adrian Moreira [facility] 1..840.114 350.1.13.10 4.2.7.2.686 [id number] [facility] 2020-07-31 15:30:00 2020-07-31 15:30:00 Outpatient IDALMIS OH [facility] [id number] [facility] 2020-07-31 00:00:00 2020-07-31 00:00:00 Telephone Marquita Perkins [facility] 1.2.840.114 350.1.13.10 4.2.7.2.686 [id number] [facility] 2020-07-27 15:48:37 2020-07-27 16:03:37 Child Adolescent Psychiatrist Visit 2, Adc Lab [facility] 1.2.840.114 350.1.13.10 4.2.7.2.686 [id number] [facility] 2020-07-27 14:10:01 2020-07-27 15:42:53 Office Visit Marquita Perkins [facility] 1.2.840.114 350.1.13.10 4.2.7.2.686 [id number] [facility] 2020-07-27 14:00:00 2020-07-27 14:00:00 Outpatient R MARQUITA PERKINS [facility] [id number] [facility] 2020-07-27 00:00:00 2020-07-27 00:00:00 Letter (Out) Doctor Unassigned, [place] [facility] 1.2.840.114 350.1.13.10 4.2.7.2.686 [id number] [id number] [facility] Results Test Description Test Time Test Comments Results Result Co mments Source [facility] SARS-COV-2 ANTIGEN (BINAX NOW)2023-07-28 22:23:00* Test Item Value Reference Range Interpretation Comme nts POCT SARS-COV-2 ANTIGEN (domingo t code = 36490-4) Not Detected Not Detected On board controls acceptable with C Line (test code = 3574) Yes [facility] Molecular Tai8099-80-50 22:09:12* Test Item Value Reference Range Interpretation Comme nts POCT Molecular FluA (test co de = 50634-9) Negative Negative POCT Molecular FluB (test co de = 80409-3) Negative Negative Lab Interpretation (test cod e = 70887-6) Normal [facility] Molecular Rmf0012-10-57 22:09:12* Test Item Value Reference Range Interpretation Comme nts POCT Molecular FluA (test co de = 22571-3) Negative Negative POCT Molecular FluB (test co de = 19748-1) Negative Negative Lab Interpretation (test cod e = 68256-8) Normal [facility] SARS-COV-2 ANTIGEN (BINAX NOW)2022-07-16 22:59:00* Test Item Value Reference Range Interpretation Comme nts POCT SARS-COV-2 ANTIGEN (domingo t code = 78512-5) Not Detected Not Detected On board controls acceptable with C Line (test code = 3574) Yes [facility] MOLECULAR BFS0069-88-83 22:54:15* Test Item Value Reference Range Interpretation Comme nts POCT Molecular FluA (test co de = 77163-9) Negative Negative POCT Molecular FluB (test co de = 35707-4) Negative Negative Lab Interpretation (test cod e = 13594-2) Normal [facility] [place] [place] Notes Date/Time Note Provider Source 2023-07-27 20:32:15 UhGMcGVLtfqto+PDxF+d GcTCqAEaezpUW0 S9/Pdo30ir1Zs4dAVSLaPNNJEqGpxd7716 -01-08T20:32:15 Future orderScreening for malignant neoplasm of colon- FIT-DNA (Cologuard); Future 39592-1Hlipmhnqh encounter LhvvMN3889-47-46V66:33:35Telephone encounter NoteTXT1.2.840.636410.1.13.104.2.7 .2.525458|[id number] for patient riev20661-5NhexTQYTFTFSLLCIigiuxtd d C-CDA narrative text[facility] - [address] ScqaLbzkmgpysBaqhtqdamILCR43809809 60IJYECEMRAZNLTCXEGCBYEX1540-15-92 T20:33:351.2.840.800465.1.72.3.15| 1.2.840.506096.1.13.104.2.7.2.7278 [id number] [facility] 2023-07-24 10:13:46 5Ani3yTPhQp1QTq4QIat WmHwxX3J0rSV2S 5hJSPI5Dfc+di2St/XUnwr8rqb9vKB2260 -01-05T10:13:46 Images from the original note were not included. 01342-5Citedoxwt encounter QgofNV8352-69-82G42:15:25Telephone encounter NoteTXT1.2.840.991864.1.13.104.2.7 .2.746708|1807814181XKNvcjftulx for patient iunv04614-4HtdqGNIHXPYOVIHGragezyc d C-CDA narrative jpdp377452284Olpmb C Powell[address] CojeSbldlzwsyGjecvewycWNPZ03862290 99PPQZIGGURJXDTOGCIBDREL9966-14-92 T10:15:251.2.840.591368.1.72.3.15| 1.2.840.679062.1.13.104.2.7.2.7278 [id number] Gumaro Morgan [facility] 2023-04-06 18:57:22 zP8YCkQVwVylkgQPbFku 2nCkCGdGKlPHwN Ituncgllkdmo5HTntxTUEpvdkOne4Y9091 -09-18T18:57:22 Pt seen via telehealth today. 82311-7Jvqeftnbx encounter KdniJE4231-40-12I08:57:32Telephone encounter NoteTXT1.2.840.785608.1.13.104.2.7 .2.041154|0617474744VEWktlxowki for patient isma74341-4JmapFJ808969900Xdai M Giusti [address]TXTX[address] 95ZFPQEZVKTJNYLWNWMRQZDS8824-60-59 T18:57:321.2.840.536148.1.72.3.15| 1.2.840.278091.1.13.104.2.7.2.7278 [id number] Lizette Pelayo [facility] 2023-04-06 15:40:22 8YElfaZn/0RxTCsLJ298 e/CE3nRxW4DNal ph7cyZ1+qFj+h7bE3ZIpKE92jRh9IR2371 -09-18T15:40:22 Spoke with patient, patient was insisting to get seen as a telehealth. Spoke with Chrystal ADVERTISING INSERTER and went ahead and add her to the schedule. 19424-5Llzlycsey encounter KvatEH3747-64-86C44:41:39Telephone encounter NoteTXT1.2.840.198287.1.13.104.2.7 .2.330313|6756940303TKVjylnxcrq for patient uygi10048-7KdzmUK402340099Fbymdx M Serrano MA[address]TXTX[address] 80PJDJVKBNWOKHNXCURYXYQL6513-11-31 T15:41:391.2.840.157596.1.72.3.15| 1.2.840.311459.1.13.104.2.7.2.7278 [id number] Lela Maciel MA [facility] 2023-04-06 13:54:06 lH0l6oHehi/2pEhXXn6X im6aFDNdaVZowm t8RB8GtNFsO8RRbczUPSY9VpNlvtG70068 -09-18T13:54:06 Pt is experiencing low grade fever, sore throat, mucus in the back of her throat, cough, hurts to swallow, dry cheeks, tongue is swollen, and mouth has ulcers x 4 days. Pt is calling from [place] and states antibiotics provided by Urgent care do not work. Pt is interested in medication or telehealth to receive care/medication.Pt states medication can be sen to [facility].Please advise. 21370-9Hxvfhrpko encounter AwdxJE6474-63-72J94:00:04Telephone encounter NoteTXT1.2.840.670250.1.13.104.2.7 .2.598675|1235556065YSElykruftw for patient mwzo47976-4DqjmCB475465519Kphd[address] FpmtWgecgaqhqYistuijehCIAV02169667 98GMMXMSDQKNVRSVTRSBNLCK1782-88-81 T14:00:041.2.840.712868.1.72.3.15| 1.2.840.171189.1.13.104.2.7.2.7278 [id number] [facility] 2023-[facility]-04 19:47:00 BFS3blhesaXIq5po83SI DOv7hAVYYToz58 bUrwJIiNJUgg7LMMG8qAOUM+8GyVYc8719 -09-16T19:47:00 Called patient to check on her states she isn't doing better, patient was upset about not receiving ABX states she went to in [place] but they gave her 5 days worth of ABX states they aren't working, also states her ear started bleeding this AM. Patient states she would like a telehealth appt. for Thursday due to her being in [place]. 10346-7Jzlszcgny encounter ZyfqUN8291-48-90G93:51:08Telephone encounter NoteTXT1.2.840.508322.1.13.104.2.7 .2.515317|[id number] for patient jrql80705-3ZwboPYJGYLALOMGQmqfnsxj d C-CDA narrative mrib584814073Wcicvs A Flanagan [id number] 22UVBUVFNVIOSVCCAISOCBGK1051-11-65 T19:51:081.2.840.194375.1.72.3.15| 1.2.840.024482.1.13.104.2.7.2.7278 [id number] [place] Mosqueda [facility] 2023-04-03 17:29:58 4d0YwmWPKEzzYhoSavPQ kK+mbkiXWYvC9c g6UR268T5Q6fJltpjtLPQRB5gVwlw26303 -09-15T17:29:58 I recommend her to be evaluated in the urgent care 17562-0Vockkixyu encounter YwlhKJ2433-59-71I44:31:00Telephone encounter NoteTXT1.2.840.477993.1.13.104.2.7 .2.376250|[id number] for patient thaa80140-0PyiaMNTRGTJZXW[address]TXTX[address] 41TMAMJTAGSEFGJWQMRUZMBF2228-41-68 T17:31:001.2.840.293968.1.72.3.15| 1.2.840.970799.1.13.104.2.7.2.7278 [id number] [facility] 2023-04-03 15:46:42 k6rZ+8kq4U5vOvx26k/t zsp2hRauZZsvss FF4VVQEcEfWD8WYTbeLJrozHGOqniz2646 -09-15T15:46:42 Spoke with patient, she is wanting prescription sent to pharmacy. Advised patient to go to urgent care near her current location for evaluation and treatment. Patient is wanting provider to send medication to her pharmacy. 79351-9Gogpumplx encounter ZoxzBJ3364-83-67K85:51:22Telephone encounter NoteTXT1.2.840.835332.1.13.104.2.7 .2.376912|[id number] for patient [id number] [address] Yu[id number] 16QWASTEASYCLOBVUZFRQEUE9768-70-55 T15:51:221.2.840.187450.1.72.3.15| 1.2.840.676472.1.13.104.2.7.2.7278 [id number] Katey Simpson RN [facility] 2023-04-03 12:09:50 LGnzfC/kHYYGSR1WaD4a evo2pv4Q8Mz3zv Ll5DzZwqasD3uY1gwGN48o5ws3oZRB1559 -09-15T12:09:50 Pt calling wanting to know how long its going to take her to send something. Pt said she is feeling un well and she doesn't want to have to go through the weekend like this.Would like something called today if possible. 23211-1Wcautibcd encounter FtlcUL4678-32-38Y61:12:26Telephone encounter NoteTXT1.2.840.463526.1.13.104.2.7 .2.326161|[id number] for patient iuib01721-1DikkEI135125263Irupy C [id number] 59YCFMWQHYYZHBNBEYSVYWGS6297-83-96 T12:12:261.2.840.393163.1.72.3.15| 1.2.840.707855.1.13.104.2.7.2.7278 [id number] Fernanda Sierra [facility] 2023-04-03 11:11:21 ajExsR1XL+F7pGkJCWy3 4sl6Sskk+jygRW JNKQLqUGN1TBIXwRpfCbKjZVxUeH2Z5160 -09-15T11:11:21 Emily Anderson is a 67 year old femalePt calling again to speak to a nurse symptoms of sore throat, ears hurting low grade fever.Please advise 86376-4Uqwtppqip encounter RazyTY4806-90-79Y10:16:49Telephone encounter NoteTXT1.2.840.878361.1.13.104.2.7 .2.774712|[id number] for patient gmvw20558-4PxjbOB97990990Vavrvsyi R [id number] 41TAMZKMRRAPXIAUTGSDIICS8449-21-13 T11:16:491.2.840.624892.1.72.3.15| 1.2.840.192217.1.13.104.2.7.2.7278 [id number] Brie Cagle [facility] 2023-04-03 09:08:50 13kKdQWzU64DMLGEoP7p gXKp3wGfSWmkD1 v76O0GJEIH4/cR2UvThS7N3jZlcOWw0224 -09-15T09:08:50 Patient calling wanting to know if the doctor is going to give her an antibiotic. She would like it sent to the [facility] in [place], [place]. [phone]. She would like a return call from a nurse. 21288-7Waribhlkr encounter NrtfCV2204-59-85D47:10:56Telephone encounter NoteTXT1.2.840.099910.1.13.104.2.7 .2.080243|[id number] for patient eing14998-6EavmXM346998479Tbhlh [facility] Fh[id number] 12YLZBPTBVSSMNIHSYTKHOBA8946-51-53 T09:10:561.2.840.545063.1.72.3.15| 1.2.840.145169.1.13.104.2.7.2.7278 [id number] Lakesha Fisher [facility] 2023-04-02 17:02:24 Mf1tVdYugNH21Dsr+ss6 ZKqBdHzo6Y5NuO +uO8s743U8cC3v4K6MXRKUDmhuYnDa2721 -09-14T17:02:24 Emily Anderson is a 67 year old femalePatient calling to see if provider can give antibiotics. Patient has sore throat, ears hurting, low grade fever. It is getting worse. Patient is out of state in [place]. Please call patient at [phone] mart [phone] signed by Terese Alicia at 04/02/2023 5:05 PM TJH63966-8Bfvibwdfr encounter RfugLS9458-84-78X25:05:41Telephone encounter NoteTXT1.2.840.309255.1.13.104.2.7 .2.052672|[id number] for patient [id number] D [id number] 53BHHWHPWHARLIMFFXBMMZJY4123-87-97 T17:05:411.2.840.735745.1.72.3.15| 1.2.840.537799.1.13.104.2.7.2.7278 [id number] Terese D [facility] 2023-01-29 15:35:50 Wa4X8h1Syws1DFPuu2IE nkbJuOoHsCyTwp HXMEryrV15kv9LzEb61fIic+f7n+l667782022T15:35:50 Phone went straight to voicemail 76203-7Ihsjnjsqu encounter XlccWB3148-12-90J31:36:03Telephone encounter NoteTXT1.2.840.756557.1.13.104.2.7 .2.533560|[id number] for patient [id number] [id number] 80JIRTIRDASKUDVTTASXRKDC0221-86-15 T15:36:031.2.840.999388.1.72.3.15| 1.2.840.637539.1.13.104.2.7.2.7278 [id number] Ashley Valdovinos [facility] 2023-01-29 15:10:22 oDWzNeDH4OK2ZyNE0N5A fiNWb26jtnZ8qr BFjUN1vxa1bdsE4Bjw+M5J2IDhpALk5473 -07-13T15:10:22 Rx sent 01/28/2023, let patient know. Please schedule for Telehealth STAT today. ER guidelines if worsening symptoms. 15205-6Ircnhqrby encounter GwkdMU2099-89-97O82:11:26Telephone encounter NoteTXT1.2.840.267964.1.13.104.2.7 .2.973023|[id number] for patient [id number] 50QDAOFDFPHDETEGUKARHGWP6255-87-52 T15:11:261.2.840.225833.1.72.3.15| 1.2.840.972634.1.13.104.2.7.2.7278 [id number] [facility] 2023-01-28 07:12:53 biCibvoIYsCD3zrohZPz 0E+RfGQdnpEyA7 lj6TpsMzPOieqmE0jcofpVSxpgg8Vg1141 -07-12T07:12:53 Re-routing to correct clinic. Ragini Castle LVN 01/28/2023 7:13 AM 53821-3Emhtbxflo encounter FjwnKG0486-66-91B16:13:15Telephone encounter NoteTXT1.2.840.477562.1.13.104.2.7 .2.569424|[id number] for patient [id number] M Fisher [id number] 30JLDFWAALJIWPGVJJYXUGZG9288-51-08 T07:13:151.2.840.518052.1.72.3.15| 1.2.840.115691.1.13.104.2.7.2.7278 [id number] Ragini Castle EXAMINER RATING CLERK [facility] 2023-01-27 17:30:54 1CdT9SFKu8b6+1cZTk0Z oOuDqTbzuFFRdt FqEfqvXhbURmO974oqTib57cD6TPH+2022T17:30:54 Emily Anderson is a 67 year old female that is having a difficult time breathing and has called multiple times to get an albuterol inhaler instead of using the nebulizer due to impurities in the house.Pt is very upset and is demanding that the inhaler be sent to the pharmacy on 01/28/23.Please contact to advise. 69864-3Gbmxfszag encounter IeehKM7112-67-54U39:35:55Telephone encounter NoteTXT1.2.840.320339.1.13.104.2.7 .2.444607|[id number] for patient [id number] [address] IpqcS[id number] 98OLUNIFSIPMLTMZDNOEKNVF4135-90-14 T17:35:551.2.840.398337.1.72.3.15| 1.2.840.149389.1.13.104.2.7.2.7278 [id number] Azul Rios [facility]"
[2023-09-27 01:16] LABS: SARS-CoV-2 Antigen Rapid Res Negative (Negative)
--- NOTE | 2023-09-27 01:48 | ER ---
Nurse's Notes [facility] Name: Emily Lam Age: 68 yrs Sex: Female : 1955 Arrival Date: 09/27/2023 Time: 00:04 Bed 5 Private MD: Diagnosis: Acute upper respiratory infection, unspecified Presentation: 09/26 00:20 Chief complaint: Patient states: I have had a cough some congestion, throat pain and vc1 ear pain for about 4 days. Coronavirus screen: Vaccine status: Patient reports receiving the 2nd dose of the covid vaccine. Client denies travel out of the [place] in the last 14 days. At this time, the client does not indicate any symptoms associated with coronavirus-19. Ebola Screen: Patient negative for fever greater than or equal to 101.5 degrees Fahrenheit, and additional compatible Ebola Virus Disease symptoms Patient denies exposure to infectious person. Patient denies travel to an Ebola-affected area in the 21 days before illness onset. No symptoms or risks identified at this time. Initial Sepsis Screen: Does the patient meet any 2 criteria? No. Patient's initial sepsis screen is negative. Does the patient have a suspected source of infection? No. Patient's initial sepsis screen is negative. Risk Assessment: Do you want to hurt yourself or someone else? Patient reports no desire to harm self or others. Onset of symptoms was September 23, 2023. 00:20 Method Of Arrival: Ambulatory vc1 00:20 Acuity: REN 4 vc1 00:20 Care prior to arrival: None. Activity prior to arrival: None. Mechanism of Injury: No vc1 Mechanism of Injury. Transition of care: patient was not received from another setting of care. Triage Assessment: 00:59 General: Appears in no apparent distress. comfortable, Behavior is cooperative, vc1 talkative. Pain: Complains of pain in right ear and left ear Pain does not radiate. Pain currently is 8 out of 10 on a pain scale. Quality of pain is described as sharp, Pain began suddenly, 4 days Is continuous. EENT: Reports nasal congestion pain in left ear and right ear. Neuro: Level of Consciousness is awake, alert, obeys commands, Oriented to person, place, time, situation, Appropriate for age. Cardiovascular: No deficits noted. Respiratory: Airway is patent Respiratory effort is even, unlabored, Respiratory pattern is regular, symmetrical, Breath sounds are clear. GI: No deficits noted. No signs and/or symptoms were reported involving the gastrointestinal system. : No deficits noted. No signs and/or symptoms were reported regarding the genitourinary system. Derm: No deficits noted. No signs and/or symptoms reported regarding the dermatologic system. Musculoskeletal: No deficits noted. No signs and/or symptoms reported regarding the musculoskeletal system. Historical: - Allergies: 00:59 Atropine; vc1 00:59 Benadryl; vc1 00:59 Ibuprofen; vc1 00:59 Scopolamine HBr; vc1 00:59 steroids; vc1 00:59 Sulfa (Sulfonamide Antibiotics); vc1 00:59 Amoxicillin; vc1 - PMHx: 00:59 CVA; dry eyes; High Cholesterol; Hyperlipidemia; vc1 - PSHx: 00:59 right nasal stent; vc1 - Immunization history:: Client reports receiving the 2nd dose of the Covid vaccine, Pneumococcal vaccine is up to date, Flu vaccine is up to date. - Social history:: Smoking status: Patient denies any tobacco usage or history of. Screenin:54 [facility] ED Fall Risk Assessment (Adult) History of falling in the last 3 months, km8 including since admission No falls in past 3 months (0 pts) Confusion or Disorientation No (0 pts) Intoxicated or Sedated No (0 pts) Impaired Gait No (0 pts) Mobility Assist Device Used No (0 pt) Altered Elimination No (0 pt) Score/Fall Risk Level 0 - 2 = Low Risk Oriented to surroundings, Maintained a safe environment, Educated pt \T\ family on fall prevention, incl call for assistance when getting out of bed, Assessed \T\ reinforced patient's understanding of fall precautions. Abuse screen: Denies threats or abuse. Denies injuries from another. Nutritional screening: No deficits noted. Tuberculosis screening: No symptoms or risk factors identified. Assessment: 00:54 General: Appears in no apparent distress. comfortable, Behavior is calm, cooperative, km8 appropriate for age. Pain: Complains of pain in throat. Neuro: Level of Consciousness is awake, alert, obeys commands, Oriented to person, place, time, situation. Cardiovascular: Patient's skin is warm and dry. Respiratory: Airway is patent Respiratory effort is even, unlabored, Respiratory pattern is regular, symmetrical, Breath sounds are clear bilaterally. GI: No signs and/or symptoms were reported involving the gastrointestinal system. : No signs and/or symptoms were reported regarding the genitourinary system. EENT: Throat is reddened. Derm: Skin is intact, is healthy with good turgor, Skin is dry, Skin is pink, warm \T\ dry. normal, Skin temperature is warm. Musculoskeletal: No signs and/or symptoms reported regarding the musculoskeletal system. Range of motion: intact in all extremities. 01:59 Reassessment: Patient appears in no apparent distress at this time. No changes from km8 previously documented assessment. Patient and/or family updated on plan of care and expected duration. Pain level reassessed. Patient is alert, oriented x 3, equal unlabored respirations, skin warm/dry/pink. Vital Signs: 00:20 BP 169 / 89; Pulse 82; Resp 18; Temp 97.6; Pulse Ox 100% ; Weight 99.79 kg; Height 5 vc1 ft. 2 in. ; Pain 8/10; 01:58 BP 158 / 85; Pulse 85; Resp 18; Pulse Ox 98% on R/A; km8 00:20 Body Mass Index 40.24 (99.79 kg, 157.48 cm) vc1 00:20 Pain Scale: Adult vc1 Fabian Coma Score: 00:54 Eye Response: spontaneous(4). Motor Response: obeys commands(6). Verbal Response: km8 oriented(5). Total: 15. ED Course: 00:10 Patient arrived in ED. gm2 00:11 Cesar Sanchez DO is Attending Physician. ms3 00:54 Yamilex Carbone, SYED is Primary Nurse. km8 00:54 COVID swab sent to lab. Flu and/or RSV swab sent to lab. Strep swab sent to lab. km8 00:54 Patient maintains SpO2 saturation greater than 95% on room air. km8 00:54 Patient has correct armband on for positive identification. Bed in low position. Call km8 light in reach. Side rails up X 1. Pulse ox on. NIBP on. Warm blanket given. 00:59 Triage completed. vc1 01:00 Arm band placed on right wrist. km8 01:09 Chest Pa And Lat (2 Views) XRAY In Process Unspecified. EDMS 01:27 Warm blanket given. tm6 01:59 No provider procedures requiring assistance completed. IV discontinued, intact, km8 bleeding controlled, No redness/swelling at site. Pressure dressing applied. 03:00 Provided Education on: d/c teaching. km8 Administered Medications: No medications were administered Medication: 03:00 VIS not applicable for this client. km8 Outcome: 01:47 Discharge ordered by MD. ms3 03:00 Discharged to home ambulatory, with significant other, km8 03:00 Condition: good 03:00 Discharge instructions given to patient, Instructed on discharge instructions, follow up and referral plans. Demonstrated understanding of instructions, follow-up care, 03:02 Patient left the ED. km8 Signatures: Dispatcher [employer] EDMS Cesar Sanchez DO DO ms3 Tressa Sanchez, RN RN 1 Diana Echols gm2 Yamilex Carbone, RN RN km8 Raffaele Aceves, RN RN tm6
--- NOTE | 2023-09-27 01:48 | EDPHYS ---
Physician Documentation [facility] Name: Emily Lam Age: 68 yrs Sex: Female : 1955 Arrival Date: 09/27/2023 Time: 00:04 Bed 5 Private MD: ED Physician Cesar Sanchez HPI: 09/26 00:39 This 68 yrs old Female presents to ER via Unassigned with complaints of Cough, Chest ms3 Congestion, Sore Throat, Ear Pain. 00:39 68-year-old female with past medical history of hypertension, hyperlipidemia presents ms3 to the emergency department for 4 days of cough sore throat and chills. Patient states she took Bromfed and fluids without relief of her symptoms. Patient denies any alleviating or inciting factors. Historical: - Allergies: 00:59 Atropine; vc1 00:59 Benadryl; vc1 00:59 Ibuprofen; vc1 00:59 Scopolamine HBr; vc1 00:59 steroids; vc1 00:59 Sulfa (Sulfonamide Antibiotics); vc1 00:59 Amoxicillin; vc1 - PMHx: 00:59 CVA; dry eyes; High Cholesterol; Hyperlipidemia; vc1 - PSHx: 00:59 right nasal stent; vc1 - Immunization history:: Client reports receiving the 2nd dose of the Covid vaccine, Pneumococcal vaccine is up to date, Flu vaccine is up to date. - Social history:: Smoking status: Patient denies any tobacco usage or history of. ROS: 00:39 Abdomen/GI: Negative for abdominal pain, nausea, vomiting, diarrhea, and constipation, ms3 MS/Extremity: Negative for injury and deformity, Skin: Negative for injury, rash, and discoloration, 00:39 Constitutional: Positive for chills, 00:39 ENT: Positive for sore throat, 00:39 Respiratory: Positive for cough, Exam: 00:39 Constitutional: This is a well developed, well nourished patient who is awake, alert, ms3 and in no acute distress. Head/Face: Normocephalic, atraumatic. Neck: Trachea midline, no cervical lymphadenopathy. Supple, full range of motion without nuchal rigidity, or vertebral point tenderness. No Meningismus. Chest/axilla: Normal chest wall appearance and motion. Nontender with no deformity. Cardiovascular: Regular rate and rhythm with a normal S1 and S2. No gallops, murmurs, or rubs. Normal PMI, no JVD. No pulse deficits. Respiratory: Lungs have equal breath sounds bilaterally, clear to auscultation and percussion. No rales, rhonchi or wheezes noted. No increased work of breathing, no retractions or nasal flaring. Abdomen/GI: Soft, non-tender, with normal bowel sounds. No distension or tympany. No guarding or rebound. No evidence of tenderness throughout. Skin: Warm, dry with normal turgor. Normal color with no rashes, no lesions, and no evidence of cellulitis. MS/ Extremity: Pulses equal, no cyanosis. Neurovascular intact. Full, normal range of motion. Vital Signs: 00:20 BP 169 / 89; Pulse 82; Resp 18; Temp 97.6; Pulse Ox 100% ; Weight 99.79 kg; Height 5 vc1 ft. 2 in. ; Pain 8/10; 01:58 BP 158 / 85; Pulse 85; Resp 18; Pulse Ox 98% on R/A; km8 00:20 Body Mass Index 40.24 (99.79 kg, 157.48 cm) vc1 00:20 Pain Scale: Adult vc1 [place] Coma Score: 00:54 Eye Response: spontaneous(4). Motor Response: obeys commands(6). Verbal Response: km8 oriented(5). Total: 15. MDM: 00:34 Patient medically screened. ms3 00:39 Differential Diagnosis: Upper Respiratory Infection Viral Syndrome Pneumonia. ms3 01:47 Data reviewed: vital signs, nurses notes, lab test result(s), radiologic studies, and ms3 as a result, I will discharge patient. Counseling: I had a detailed discussion with the patient and/or guardian regarding the historical points, exam findings, and any diagnostic results supporting the discharge/admit diagnosis, lab results, radiology results, the need for outpatient follow up, to return to the emergency department if symptoms worsen or persist or if there are any questions or concerns that arise at home. Special discussion: I discussed with the patient/guardian in detail that at this point there is no indication for admission to the hospital. It is understood, however, that if the symptoms persist or worsen the patient needs to return immediately for re-evaluation. ED course: Discussed lab and imaging results with patient. Patient to follow-up with primary care physician 2 to 3 days. Patient understands and agrees with plan. All questions were answered. Return precautions discussed include worsening symptoms, or any other concerns. On reevaluation patient is alert and oriented x 4, no apparent distress, nontoxic-appearing, ambulatory in emergency room, speaking full sentences. 09/26 00:29 Order name: Flu; Complete Time: ms3 09/26 00:29 Order name: SARS RAPID; Complete Time: ms3 09/26 00:29 Order name: Strep; Complete Time: ms3 09/26 01:11 Order name: Throat Culture EDMS 09/26 00:29 Order name: Chest Pa And Lat (2 Views) XRAY ms3 Administered Medications: No medications were administered Disposition Summary: 09/27/23 01:47 Discharge Ordered Notes: Location: Home ms3 Condition: Stable ms3 Diagnosis - Acute upper respiratory infection, unspecified ms3 Followup: ms3 - With: Private Physician - When: 2 - 3 days - Reason: Recheck today's complaints Discharge Instructions: - Discharge Summary Sheet ms3 - Upper Respiratory Infection, Adult ms3 Forms: - Medication Reconciliation Form ms3 - Thank You Letter ms3 - Antibiotic Education ms3 - Prescription Opioid Use ms3 - Patient Portal Instructions ms3 - Leadership Thank You Letter ms3 Signatures: Dispatcher [employer] Cesar Shearer DO DO ms3 Tressa Sanchez, RN RN vc1
[2023-09-27 03:22] VITALS: BP 158/85; TEMP 97.6; O2SAT 98
--- NOTE | 2023-09-28 10:58 | RAD REPORT ---
EXAM DESCRIPTION: RAD - Chest Pa And Lat (2 Views) - 09/27/2023 1:07 am CLINICAL HISTORY: 68 years Female, COUGH CLINICAL HISTORY: None FINDINGS: No focal lung consolidation. No pleural effusion. No pneumothorax. Cardiomediastinal silhouette is within normal limits. No acute osseous abnormality. IMPRESSION: No acute cardiopulmonary disease. Electronically signed by: Negro Capellan DO 09/27/2023 01:26 AM BRANCH MANAGER TRAINEE Due to temporary technical issues with the PACS/Fluency reporting system, reports are being signed by the in house radiologist without review as a courtesy to ensure prompt reporting. The interpreting r adiologist is fully responsible for the content of the report.
== END ==
LOC: ER 00:04
DX: J06.9 Acute upper respiratory infection, unspecified (principal); Z11.52 Encounter for screening for COVID-19; Z88.1 Allergy status to other antibiotic agents; Z88.2 Allergy status to sulfonamides; Z88.6 Allergy status to analgesic agent; Z88.8 Allergy status to other drugs, medicaments and biological substances
CPT/HCPCS: 36415; 71046; 87070; 87081; 87804; 87811; 99284